=== PATIENT | female | born 1940 | race Caucasian/White ===

== ENCOUNTER 2016-11-17 12:09 | Emergency (ER) | payer OTHER ==
[~2016-11-17] VITALS: Ht 170.2 cm; Wt 84.0 kg
[~2016-11-17 12:09] MED LIST: ALBUAER19 INH; CLOP1TAB15 PO; DONE5TAB9 PO; ESCI1TAB6 PO; GABA1CAP PO; HMLI7525 SC; LORA-741 PO; LPT10 PO; LTRCR15 EXT; METF1000 PO; NRN/300 PO; NRV5 PO; PANT1TAB48 PO; SUCR1TAB29 PO; TRAM-10 PO
[2016-11-17 12:19] VITALS: TEMP 36.4; Ht 170.2 cm; Wt 84.0 kg
[2016-11-17] MEDS ORDERED: SODIUM CHLORIDE 0.9% 1000ML 500 ML IV STA (12:28)
[2016-11-17] MEDS ORDERED: ACETAMINOPHEN 500 MG TAB PO STA (12:28)
[2016-11-17 12:38] VITALS: O2SAT 98
--- NOTE | 2016-11-17 12:46 | DIAGNOSTIC IMAGING REPORT ---
CHEST ONE VIEW PORTABLE CLINICAL HISTORY: EVALUATE ALTERED MENTAL STATUS/WEAKNESS dyspnea COMPARISON STUDY: 03/30/2016 FINDINGS: The bones soft tissues and hemidiaphragms are normal. The cardiomediastinal silhouette is normal. The lungs are clear. The pulmonary vasculature is normal. IMPRESSION: Negative chest. Electronically signed by: Zoran Francois M.D. 11/17/2016 12:45 PM Dictated Date/Time: 11/17/2016 12:45 PM
[2016-11-17 12:58] LABS: BASO ABS # 0.06 K/uL (0-0.2); COMPLETE YES; EOS % 9.6 %; HEMATOCRIT 35.3 % (37-47); IG% 0.2 %; LYMPH % 37.3 %; LYMPH ABS # 2.33 K/uL (1.2-3.4); MEAN CELL VOLUME 77.4 fL (80-100); MEAN CORPUSCULAR HEMOGLOBIN 26.3 pg (25-34); MEAN PLATELET VOLUME 9.4 fL (7.4-10.4); MONO % 5.1 %; NEUT % 46.8 %; PLATELET COUNT 169 K/uL (130-400); RED BLOOD COUNT 4.56 M/uL (4.2-5.4); WHITE BLOOD COUNT 6.24 K/uL (4.8-10.8)
[2016-11-17 13:04] LABS: URINE APPEARANCE CLEAR (CLEAR); URINE BILIRUBIN NEG (NEG); URINE COLOR YELLOW; URINE NITRITE NEG (NEG); URINE SPECIFIC GRAVITY 1.005 (1.000-1.030); UROBILINOGEN NEG (NEG); ZZUR CULT IF INDIC CLEAN CATCH NO
[2016-11-17 13:19] LABS: ALT/SGPT 26 U/L (12-78); AST/SGOT 14 U/L (15-37); BLOOD UREA NITROGEN 14 mg/dl (7-18); BUN/CREATININE RATIO 15.2 (10-20); CALCIUM 8.3 mg/dl (8.5-10.1); CARBON DIOXIDE 28 mmol/L (21-32); CHLORIDE 108 mmol/L (98-107); CREATININE 0.92 mg/dl (0.60-1.20); GLUCOSE 135 mg/dl (70-99); POTASSIUM 3.7 mmol/L (3.5-5.1); SODIUM 142 mmol/L (136-145)
[2016-11-17 13:24] LABS: ALKALINE PHOSPHATASE 86 U/L (45-117)
--- NOTE | 2016-11-17 13:25 | EMERGENCY ROOM VISIT NOTE ---
History Report prepared by Lenora: Nisha Dotson Under the Supervision of: Dr. Nilay Tyson M.D. First contact with patient: 12:19 Chief Complaint: ARM PAIN Stated Complaint: R ARM PAIN History of Present Illness The patient is a 76 year old female who presents to the Emergency Room via EMS with complaints of worsening right arm pain starting a few days ago. She reports pain radiation to the right side of the neck. She has worsening pain with movement of the arm and neck. She denies any recent falls or injuries. She woke up this morning with nausea. She passed out while sitting down this morning while having her normal check up by the home health nurse. She denies falling down or hitting her head. Her blood sugar was 143 today before she was sent to the Emergency Room. She has a history of diabetes. She was started on Keflex last night for a urinary tract infection. As per family member, the patient has a chronic cough. She denies chest pain, shortness of breath, or any other complaints. Source of History: patient, family Onset: a few days ago Position: arm (right) Timing: worsening Modifying Factors (Worsening): movement (of arm and neck) Associated Symptoms: + cough (chronic), + nausea, No SOB, No chest pain Review of Systems See HPI for pertinent positives & negatives. A total of 10 systems reviewed and were otherwise negative. Past Medical & Surgical Medical Problems: (1) Dementia (2) Depression (3) DM type 2 (diabetes mellitus, type 2) (4) Dyslipidemia (5) GERD (gastroesophageal reflux disease) (6) HTN (hypertension) (7) Peptic ulcer (8) Renal calculi (9) Stroke Surgical Problems: (1) History of hysterectomy (2) S/p bilateral carpal tunnel release (3) S/P cholecystectomy Family History Cancer Diabetes mellitus FH: heart disease Hypertension Kidney stones Social History Smoking Status: Former Smoker Drug Use: none Marital Status: Housing Status: lives alone Occupation Status: retired Current/Historical Medications Scheduled Albuterol Inhaler (Ventolin Inhaler), 2 PUFFS INH QID Atorvastatin (Atorvastatin Calcium), 10 MG PO QPM Cephalexin Monohydrate (Keflex), 250 MG PO QAM Clopidogrel (Plavix), 75 MG PO NOON Clotrimazole (Lotrimin 1% Crm), 1 APPLN EXT BID Donepezil HCl (Aricept), 5 MG PO HS Escitalopram Oxalate (Lexapro), 5 MG PO HS Gabapentin (Neurontin), 300 MG PO TID Insulin Lispro 75/25 (Humalog Mix 75/25), 54 UNITS SC BID Lorazepam (Ativan), 0.5 MG PO TID Losartan Potassium (Cozaar), 50 MG PO DAILY Pantoprazole (Protonix), 40 MG PO QPM Allergies Coded Allergies: Metaxalone (Unverified Allergy, Unknown, unknown, 11/17/16) Penicillins (Verified Allergy, Unknown, 11/17/16) Quinolones (Verified Allergy, Unknown, UNKNOWN, 11/17/16) Sulfa Antibiotics (Verified Allergy, Unknown, UNKNOWN, 11/17/16) Physical Exam Vital Signs Date Time Temp Pulse Resp B/P Pulse Ox O2 Delivery O2 Flow Rate FiO2 11/17/16 14:27 76 22 155/83 94 11/17/16 13:15 72 11/17/16 13:10 72 131/90 84 160/109 82 176/82 11/17/16 12:38 98 Room Air 11/17/16 12:19 36.4 74 16 138/77 97 Room Air Physical Exam GENERAL: Patient is in no acute distress. HEENT: No acute trauma, normocephalic atraumatic, mucous membranes moist, no nasal congestion, no scleral icterus. NECK: Pain to palpation of right trapezius and right posterior neck muscles, pain worsens with neck movement, no stridor, trachea is midline, no posterior C- spine bony tenderness. LUNGS: Clear to auscultation bilaterally, no wheeze, no rhonchi, breath sounds equal. HEART: Without murmurs gallops or rubs, regular rate and rhythm. ABDOMEN: Soft, nontender, bowel sounds positive, no hernias, no peritonitis. EXTREMITIES: No cyanosis or edema, full range of motion of all the joints without pain or difficulty, no signs for acute trauma. NEUROLOGIC: Oriented x 3, no acute motor or sensory deficits, no focal weakness. SKIN: No rash, no jaundice, no diaphoresis. Medical Decision & Procedures ER Provider Diagnostic Interpretation: Orthostatic vital signs are negative. X ray results and stated below per my interpretation and radiologist interpretation. CT results and stated below per my review and radiologist interpretation: CERVICAL SPINE CT CT DOSE: 386.78 mGy.cm HISTORY: right neck and arm pain TECHNIQUE: Multiaxial CT images of the cervical spine were performed and reformatted in the sagittal and coronal plane without the use of contrast. COMPARISON: Neck CTA 03/21/2015. FINDINGS: Mild reversal of the normal lordotic curvature. Severe facet degenerative changes within the left side of the C2-C4 facets. Nonunited small posterior fragment at the left C2 facet is likely due to an old fracture or long-standing degenerative change. This does not appear to represent an acute fracture. No acute fractures identified within the cervical spine. The C1-C2 interval is intact. There is 1.5 mm of anterolisthesis of C3 on C4. Severe disc space narrowing with endplate osteophytes at C4-C5, C5-C6. Moderate disc space narrowing and endplate osteophytes at C6-C7. Minimal dextroscoliosis which may be positional. Moderate left and severe right neural foraminal narrowing at C4-C7. Broad-based posterior disc osteophyte complexes at C4-C5, C5-C6, and C6-C7 resulting in mild to moderate central canal narrowing. IMPRESSION: 1. No acute fracture within the cervical spine. 2. Degenerative changes most pronounced at the C4-C5, C5-C6, and C6-C7 levels as described above with left greater than right neural foraminal narrowing. 3. There is 1.5 mm of anterolisthesis of C3 on C4 likely due to long-standing degenerative change. Electronically signed by: Gio Norton M.D. 11/17/2016 1:22 PM Dictated Date/Time: 11/17/2016 1:12 PM CHEST ONE VIEW PORTABLE CLINICAL HISTORY: EVALUATE ALTERED MENTAL STATUS/WEAKNESS dyspnea COMPARISON STUDY: 03/30/2016 FINDINGS: The bones soft tissues and hemidiaphragms are normal. The cardiomediastinal silhouette is normal. The lungs are clear. The pulmonary vasculature is normal. IMPRESSION: Negative chest. Electronically signed by: Zoran Francois M.D. 11/17/2016 12:45 PM Dictated Date/Time: 11/17/2016 12:45 PM Laboratory Results 11/17/16 11:45 Red Blood Count 4.56, Mean Corpuscular Volume 77.4, Mean Corpuscular Hemoglobin 26.3, Mean Corpuscular Hemoglobin Concent 34.0, Mean Platelet Volume 9.4, Neutrophils (%) (Auto) 46.8, Lymphocytes (%) (Auto) 37.3, Monocytes (%) (Auto) 5.1, Eosinophils (%) (Auto) 9.6, Basophils (%) (Auto) 1.0, Neutrophils # (Auto) 2.92, Lymphocytes # (Auto) 2.33, Monocytes # (Auto) 0.32, Eosinophils # (Auto) 0.60, Basophils # (Auto) 0.06 11/17/16 11:45 Test 11/17/16 11:45 11/17/16 12:53 White Blood Count 6.24 K/uL (4.8-10.8) Red Blood Count 4.56 M/uL (4.2-5.4) Hemoglobin 12.0 g/dL (12.0-16.0) Hematocrit 35.3 % (37-47) Mean Corpuscular Volume 77.4 fL (80-100) Mean Corpuscular Hemoglobin 26.3 pg (25-34) Mean Corpuscular Hemoglobin Concent 34.0 g/dl (32-36) Platelet Count 169 K/uL (130-400) Mean Platelet Volume 9.4 fL (7.4-10.4) Neutrophils (%) (Auto) 46.8 % Lymphocytes (%) (Auto) 37.3 % Monocytes (%) (Auto) 5.1 % Eosinophils (%) (Auto) 9.6 % Basophils (%) (Auto) 1.0 % Neutrophils # (Auto) 2.92 K/uL (1.4-6.5) Lymphocytes # (Auto) 2.33 K/uL (1.2-3.4) Monocytes # (Auto) 0.32 K/uL (0.11-0.59) Eosinophils # (Auto) 0.60 K/uL (0-0.5) Basophils # (Auto) 0.06 K/uL (0-0.2) RDW Standard Deviation 42.1 fL (36.4-46.3) RDW Coefficient of Variation 14.9 % (11.5-14.5) Immature Granulocyte % (Auto) 0.2 % Immature Granulocyte # (Auto) 0.01 K/uL (0.00-0.02) Anion Gap 6.0 mmol/L (3-11) Est Creatinine Clear Calc Drug Dose 58.9 ml/min Estimated GFR () 70.6 Estimated GFR (Non- 60.9 BUN/Creatinine Ratio 15.2 (10-20) Calcium Level 8.3 mg/dl (8.5-10.1) Total Bilirubin 1.2 mg/dl (0.2-1) Aspartate Amino Transf (AST/SGOT) 14 U/L (15-37) Alanine Aminotransferase (ALT/SGPT) 26 U/L (12-78) Alkaline Phosphatase 86 U/L (45-117) Troponin I < 0.015 ng/ml (0-0.045) Total Protein 7.3 gm/dl (6.4-8.2) Albumin 3.7 gm/dl (3.4-5.0) Globulin 3.6 gm/dl (2.5-4.0) Albumin/Globulin Ratio 1.0 (0.9-2) Urine Color YELLOW Urine Appearance CLEAR (CLEAR) Urine pH 5.0 (4.5-7.5) Urine Specific [place] 1.005 (1.000-1.030) Urine Protein NEG (NEG) Urine Glucose (UA) NEG (NEG) Urine Ketones NEG (NEG) Urine Occult Blood NEG (NEG) Urine Nitrite NEG (NEG) Urine Bilirubin NEG (NEG) Urine Urobilinogen NEG (NEG) Urine Leukocyte Esterase NEG (NEG) Laboratory results reviewed by me. Medications Administered Medications (Trade) Dose Ordered Sig/Phil Route Start Time Stop Time Status Last Admin Dose Admin Sodium Chloride (Nss 1000ml) 500 ml @ 999 mls/hr Q31M STAT IV 11/17/16 12:28 11/17/16 12:58 DC 11/17/16 12:28 999 MLS/HR Acetaminophen (Tylenol Tab) 1,000 mg NOW STAT PO 11/17/16 12:28 11/17/16 12:33 DC 11/17/16 12:28 1,000 MG ECG Indication: other (arm pain) Rate (beats per minute): 70 Rhythm: normal sinus Findings: no acute ischemic change, no ectopy ED Course 1219: The patient was evaluated in room B02. A complete history and physical exam was performed. 1228: Tylenol Tab 1000 mg PO, Sodium Chloride 500 ml @ 999 mls/hr IV 1345: Reevaluated the patient who currently denies any complaints. Discussed results and discharge instructions: She verbalized understanding and agreement. The patient is ready for discharge. Medical Decision Differential diagnosis includes but is not limited to cervical fracture, cervical disc disease, nerve impingement, muscle spasm, dehydration, electrolyte imbalance, infection, dysrhythmia. There is no leukocytosis or concerning anemia. No significant electrolyte abnormality, kidney failure or hepatitis. Urinalysis does not show evidence for infection. Orthostatic vital signs were negative. Chest x-ray shows no pneumonia or CHF. EKG shows a sinus rhythm, no acute ischemia. Cardiac enzyme testing times one is not consistent with acute cardiac injury. Cervical spine CT shows arthritis, no acute fracture. The patient received IV saline, she was given oral Tylenol for her right arm pain. The patient had a near syncopal or brief syncopal event today when the home health nurse was performing her assessment. There was no chest pain. The patient has no complaints at the present except for some right arm pain which apparently, has been ongoing for several days. She has pain with palpation in the right neck and right trapezius muscle and with the results of her cervical spine CT, I suspect her pain is musculoskeletal-she likely has some nerve impingement. The patient was reassured, she feels well, she has been up to the bathroom and has been able to ambulate on her own. There has been no recurrent near syncopal or syncopal events. She is being discharged to follow with her doctors office. She will stop the Keflex as I'm not sure she needs it, the urine seems clear. Her son believes the Keflex made her sick/nauseated and then caused her to pass out. Impression Primary Impression: Near syncope Additional Impression: Arm pain, right Scribe Attestation The scribe's documentation has been prepared under my direction and personally reviewed by me in its entirety. I confirm that the note above accurately reflects all work, treatment, procedures, and medical decision making performed by me. Departure Information Dispostion Home / Self-Care Referrals Renetta Grajeda (PCP) Forms HOME CARE DOCUMENTATION FORM, IMPORTANT VISIT INFORMATION Patient Instructions My [facility] Additional Instructions tylenol for pain massage and heat to the neck may help stop the Keflex antibiotic for now follow with your matti md this week return if worsening lab testing was all ok today CT scan of the neck showed arthritis Problem Qualifiers
[2016-11-17 13:32] LABS: MANUAL MICROSCOPIC REQUIRED? NO; REVIEW REQ? NO
[2016-11-17] MEDS ORDERED: LOSA50TA6 PO (13:45)
[2016-11-17] MEDS ORDERED: KFL/250 PO (13:45)
[2016-11-17 14:27] VITALS: BP 155/83; PULSE 76; O2SAT 94
== END 2016-11-17 14:32 | disposition home or self-care (01) ==
LOC: EDBD 12:09 → C.EDB 12:10
DX: R55 Syncope and collapse (principal); M79.601 Pain in right arm; E11.9 Type 2 diabetes mellitus without complications; K21.9 Gastro-esophageal reflux disease without esophagitis; F03.90 Unspecified dementia, unspecified severity, without behavioral disturbance, psychotic disturbance, mood disturbance, and anxiety; E78.5 Hyperlipidemia, unspecified; I10 Essential (primary) hypertension; Z87.442 Personal history of urinary calculi; Z86.73 Personal history of transient ischemic attack (TIA), and cerebral infarction without residual deficits; Z80.9 Family history of malignant neoplasm, unspecified; Z83.3 Family history of diabetes mellitus; Z82.49 Family history of ischemic heart disease and other diseases of the circulatory system; Z84.1 Family history of disorders of kidney and ureter; Z87.891 Personal history of nicotine dependence; Z79.02 Long term (current) use of antithrombotics/antiplatelets; Z79.4 Long term (current) use of insulin; Z79.899 Other long term (current) drug therapy

== ENCOUNTER 2016-12-27 10:24 | Emergency (ER) | payer OTHER ==
[~2016-12-27] VITALS: Ht 158.8 cm; Wt 84.0 kg
[~2016-12-27 10:24] MED LIST changes: -GABA1CAP PO; +KFL/250 PO; +LOSA50TA6 PO; -METF1000 PO; -NRV5 PO; -SUCR1TAB29 PO; -TRAM-10 PO
[2016-12-27] MEDS ORDERED: SODIUM CHLORIDE 0.9% 1000ML 1,000 ML IV STA (10:48)
[2016-12-27] MEDS ORDERED: CARB25TA12 PO (10:51)
[2016-12-27] MEDS ORDERED: TRAM-10 PO (10:51)
[2016-12-27] MEDS ORDERED: ESCI10TA17 PO (10:51)
[2016-12-27] MEDS ORDERED: DONE1TAB11 PO (10:51)
[2016-12-27] MEDS ORDERED: CEFD300C2 PO (10:51)
[2016-12-27 10:53] VITALS: O2SAT 94; Ht 158.8 cm; Wt 84.0 kg
[2016-12-27 11:14] LABS: URINE APPEARANCE CLEAR (CLEAR); URINE BILIRUBIN NEG (NEG); URINE COLOR YELLOW; URINE EPITHELIAL CELL AUTO 20-30 /lpf (0-5); URINE NITRITE NEG (NEG); URINE PH 5.5 (4.5-7.5); URINE SPECIFIC GRAVITY 1.011 (1.000-1.030); UROBILINOGEN NEG (NEG)
[2016-12-27 11:15] LABS: MANUAL MICROSCOPIC REQUIRED? NO; REVIEW REQ? NO
[2016-12-27 11:29] LABS: BASO % 0.2 %; BASO ABS # 0.01 K/uL (0-0.2); COMPLETE YES; EOS % 5.1 %; HEMATOCRIT 38.9 % (37-47); IG% 0.2 %; LYMPH % 27.1 %; LYMPH ABS # 1.55 K/uL (1.2-3.4); MEAN CELL VOLUME 79.4 fL (80-100); MEAN CORPUSCULAR HEMOGLOBIN 26.5 pg (25-34); MEAN CORPUSCULAR HGB CONC 33.4 g/dl (32-36); MEAN PLATELET VOLUME 9.9 fL (7.4-10.4); NEUT % 60.4 %; PLATELET COUNT 177 K/uL (130-400); WHITE BLOOD COUNT 5.73 K/uL (4.8-10.8)
--- NOTE | 2016-12-27 11:33 | DIAGNOSTIC IMAGING REPORT ---
CHEST ONE VIEW PORTABLE CLINICAL HISTORY: Weakness COMPARISON STUDY: 11/17/2016 FINDINGS: The cardiac and mediastinal contours are normal. There is no evidence of focal pulmonary consolidation. There is no evidence of failure. No pleural effusions are visualized.[ Differential attenuation hemithoraces is felt to be secondary to technical factors. There is mild respiratory motion artifact. IMPRESSION: No active disease in the chest. Electronically signed by: Etienne Davis M.D. 12/27/2016 11:32 AM Dictated Date/Time: 12/27/2016 11:32 AM
--- NOTE | 2016-12-27 11:35 | DIAGNOSTIC IMAGING REPORT ---
CT HEAD WITHOUT CONTRAST (CT) CLINICAL HISTORY: Confusion, weakness, history of stroke. COMPARISON STUDY: 03/30/2016 TECHNIQUE: Axial CT of the brain is performed from the vertex to the skull base. IV contrast was not administered for this examination. CT DOSE: 537.48 mGy.cm FINDINGS: No intra or extra-axial mass lesions are visualized. There is no CT evidence of acute cortical infarction. There is no evidence of midline shift. There is no acute hemorrhage. No calvarial fractures are visualized. There are moderate white matter hypodensities likely on a small vessel basis. There is no evidence of pathologic ventricular dilatation. There is no evidence of acute sinusitis IMPRESSION: No acute intracranial findings Electronically signed by: Etienne Davis M.D. 12/27/2016 11:33 AM Dictated Date/Time: 12/27/2016 11:32 AM
[2016-12-27 11:37] LABS: PARTIAL THROMBOPLASTIN RATIO 1.1; PROTHROMBIN TIME (PATIENT) 10.9 SECONDS (9.0-12.0)
[2016-12-27 11:56] LABS: ALKALINE PHOSPHATASE 101 U/L (45-117); ALT/SGPT 29 U/L (12-78); AST/SGOT 20 U/L (15-37); BLOOD UREA NITROGEN 20 mg/dl (7-18); CALCIUM 8.6 mg/dl (8.5-10.1); CARBON DIOXIDE 28 mmol/L (21-32); CHLORIDE 104 mmol/L (98-107); CKMB/CK RATIO 1.1 (0-3.0); GLUCOSE 318 mg/dl (70-99); MAGNESIUM 1.9 mg/dl (1.8-2.4); POTASSIUM 4.7 mmol/L (3.5-5.1); SODIUM 139 mmol/L (136-145)
[2016-12-27 12:07] LABS: BETA-HYDROXYBUTYRATE 1.54 mg/dL (0.2-2.81)
[2016-12-27] MEDS ORDERED: NovoLIN-R INSULIN PER UNIT CHARGE IV STA (13:49)
[2016-12-27] MEDS ORDERED: ACETAMINOPHEN 500 MG TAB PO STA (13:49)
[2016-12-27 15:08] VITALS: BP 117/83; PULSE 79; TEMP 36.7; O2SAT 95
--- NOTE | 2016-12-27 17:22 | EMERGENCY ROOM VISIT NOTE ---
History Report prepared by Lenora: Bryanna Serna Under the Supervision of: Dr. Christopher Bro M.D. 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 Family states that she became weak while walking this morning around 850am. She did not fall to the ground, but family was able to slowly assist her to the ground. She did not hit her head or injure anything today. Her daughter states that after she fell she was incoherent for some time. She did not know who her family was. She was calling out for her mother who has been for many years. Daughter states that it was about 30-45 minutes before her mental status returned to normal. The patient has appeared to be more tired than usual today and was shaking while she was lying on the ground. The patient denies any pain or injury secondary to today's episode. She does note a chronic cough, as well as chronic back pain and neck pain. The patient has a history of a previous stroke and dementia. The patient's daughter notes concerns that this may be related to her dementia as she has had this type of episode before. She was brought to the ED by ambulance today. Daughter notes that she is currently taking Omnicef and has been taking it since 12/20/16 for "inflammation in her glands." She has not had any other recent changes to her medications. Pt denies LOC, headache, fevers, chills, diaphoresis, visual changes, chest pain, breathing difficulties , nausea, vomiting, abdominal pain, melena, hematochezia, urinary symptoms, numbness, lymphadenopathy, rash, or other complaints. Source of History: patient, family Onset: almost 2 hours DIRT SHOVELER Position: other (global) Quality: other (fall) Timing: other (episode) Modifying Factors (Relieving): other (time) Associated Symptoms: + fatigue, + weakness Review of Systems See HPI for pertinent positives and negatives. A total of ten systems were reviewed and were otherwise negative. Past Medical & Surgical Medical Problems: (1) Dementia (2) Depression (3) DM type 2 (diabetes mellitus, type 2) (4) Dyslipidemia (5) GERD (gastroesophageal reflux disease) (6) HTN (hypertension) (7) Peptic ulcer (8) Renal calculi (9) Stroke Surgical Problems: (1) History of hysterectomy (2) S/p bilateral carpal tunnel release (3) S/P cholecystectomy Family History Cancer Diabetes mellitus FH: heart disease Hypertension Kidney stones Social History Smoking Status: Former Smoker Drug Use: none Marital Status: Housing Status: lives alone Occupation Status: retired Current/Historical Medications Scheduled Atorvastatin (Atorvastatin Calcium), 10 MG PO QPM Carbidopa/Levodopa (Sinemet 25MG/100MG), 0.5 TAB PO TID Cefdinir (Omnicef), 300 MG PO BID Clopidogrel (Plavix), 75 MG PO NOON Donepezil Hydrochloride (Donepezil Hcl), 10 MG PO DAILY Escitalopram (Lexapro), 10 MG PO DAILY Gabapentin (Neurontin), 300 MG PO TID Insulin Lispro 75/25 (Humalog Mix 75/25), 54 UNITS SC BID Lorazepam (Ativan), 0.5 MG PO TID Losartan Potassium (Cozaar), 50 MG PO DAILY Pantoprazole (Protonix), 40 MG PO QPM Scheduled PRN Tramadol (Ultram), 50 MG PO Q8H PRN for Pain Allergies Coded Allergies: Metaxalone (Unverified Allergy, Unknown, unknown, 11/17/16) Penicillins (Verified Allergy, Unknown, 11/17/16) Quinolones (Verified Allergy, Unknown, UNKNOWN, 11/17/16) Sulfa Antibiotics (Verified Allergy, Unknown, UNKNOWN, 11/17/16) Physical Exam Vital Signs Date Time Temp Pulse Resp B/P Pulse Ox O2 Delivery O2 Flow Rate FiO2 12/27/16 15:08 36.7 79 18 117/83 95 12/27/16 14:46 79 18 117/83 95 Room Air 12/27/16 13:42 86 12/27/16 12:04 83 15 94 12/27/16 11:59 83 21 92 12/27/16 11:54 78 14 94 12/27/16 11:52 128/93 12/27/16 11:04 93 24 94 12/27/16 10:59 86 16 95 12/27/16 10:54 82 18 95 12/27/16 10:53 94 Room Air 12/27/16 10:49 82 23 91 12/27/16 10:44 78 14 95 12/27/16 10:37 84 12/27/16 10:30 36.7 80 20 164/80 95 Room Air Physical Exam GENERAL: Awake, alert, well-appearing, in no distress HENT: Normocephalic, atraumatic. Oropharynx unremarkable. EYES: Normal conjunctiva. Sclera non-icteric. PERRL, EOMI. NECK: Supple. No nuchal rigidity. FROM. No JVD. RESPIRATORY: Clear to auscultation. Moderate cough present. CARDIAC: Regular rate, normal rhythm. Extremities warm and well perfused. Pulses equal. ABDOMEN: Soft, non-distended. Minimal lower abdominal discomfort. No rebound or guarding. No masses. RECTAL: Deferred. MUSCULOSKELETAL: Chest examination reveals no tenderness. The back is symmetrical on inspection without obvious abnormality. There is no CVA tenderness to palpation. No joint edema. LOWER EXTREMITIES: Calves are equal size bilaterally and non-tender. No edema. No discoloration. NEURO: Mildly confused sensorium. Difficulty following commands for assessing right leg drift, which the daughter states is chronic for her. SKIN: No rash or jaundice noted. Medical Decision & Procedures ER Provider Diagnostic Interpretation: Radiology results as stated below per my review and radiologist interpretation: CT HEAD WITHOUT CONTRAST (CT) CLINICAL HISTORY: Confusion, weakness, history of stroke. COMPARISON STUDY: 03/30/2016 TECHNIQUE: Axial CT of the brain is performed from the vertex to the skull base. IV contrast was not administered for this examination. CT DOSE: 537.48 mGy.cm FINDINGS: No intra or extra-axial mass lesions are visualized. There is no CT evidence of acute cortical infarction. There is no evidence of midline shift. There is no acute hemorrhage. No calvarial fractures are visualized. There are moderate white matter hypodensities likely on a small vessel basis. There is no evidence of pathologic ventricular dilatation. There is no evidence of acute sinusitis IMPRESSION: No acute intracranial findings Electronically signed by: Etienne Davis M.D. 12/27/2016 11:33 AM Dictated Date/Time: 12/27/2016 11:32 AM CHEST ONE VIEW PORTABLE CLINICAL HISTORY: Weakness COMPARISON STUDY: 11/17/2016 FINDINGS: The cardiac and mediastinal contours are normal. There is no evidence of focal pulmonary consolidation. There is no evidence of failure. No pleural effusions are visualized.[ Differential attenuation hemithoraces is felt to be secondary to technical factors. There is mild respiratory motion artifact. IMPRESSION: No active disease in the chest. Electronically signed by: Etienne Davis M.D. 12/27/2016 11:32 AM Dictated Date/Time: 12/27/2016 11:32 AM Laboratory Results 12/27/16 11:10 Red Blood Count 4.90, Mean Corpuscular Volume 79.4, Mean Corpuscular Hemoglobin 26.5, Mean Corpuscular Hemoglobin Concent 33.4, Mean Platelet Volume 9.9, Neutrophils (%) (Auto) 60.4, Lymphocytes (%) (Auto) 27.1, Monocytes (%) (Auto) 7.0, Eosinophils (%) (Auto) 5.1, Basophils (%) (Auto) 0.2, Neutrophils # (Auto) 3.47, Lymphocytes # (Auto) 1.55, Monocytes # (Auto) 0.40, Eosinophils # (Auto) 0.29, Basophils # (Auto) 0.01 12/27/16 11:10 Test 12/27/16 10:35 12/27/16 11:10 Urine Color YELLOW Urine Appearance CLEAR (CLEAR) Urine pH 5.5 (4.5-7.5) Urine Specific [place] 1.011 (1.000-1.030) Urine Protein TRACE (NEG) Urine Glucose (UA) 2+ (NEG) Urine Ketones NEG (NEG) Urine Occult Blood NEG (NEG) Urine Nitrite NEG (NEG) Urine Bilirubin NEG (NEG) Urine Urobilinogen NEG (NEG) Urine Leukocyte Esterase NEG (NEG) Urine WBC (Auto) 1-5 /hpf (0-5) Urine RBC (Auto) 0-4 /hpf (0-4) Urine Hyaline Casts (Auto) 0 /lpf (0-5) Urine Epithelial Cells (Auto) 20-30 /lpf (0-5) Urine Bacteria (Auto) NEG (NEG) White Blood Count 5.73 K/uL (4.8-10.8) Red Blood Count 4.90 M/uL (4.2-5.4) Hemoglobin 13.0 g/dL (12.0-16.0) Hematocrit 38.9 % (37-47) Mean Corpuscular Volume 79.4 fL (80-100) Mean Corpuscular Hemoglobin 26.5 pg (25-34) Mean Corpuscular Hemoglobin Concent 33.4 g/dl (32-36) Platelet Count 177 K/uL (130-400) Mean Platelet Volume 9.9 fL (7.4-10.4) Neutrophils (%) (Auto) 60.4 % Lymphocytes (%) (Auto) 27.1 % Monocytes (%) (Auto) 7.0 % Eosinophils (%) (Auto) 5.1 % Basophils (%) (Auto) 0.2 % Neutrophils # (Auto) 3.47 K/uL (1.4-6.5) Lymphocytes # (Auto) 1.55 K/uL (1.2-3.4) Monocytes # (Auto) 0.40 K/uL (0.11-0.59) Eosinophils # (Auto) 0.29 K/uL (0-0.5) Basophils # (Auto) 0.01 K/uL (0-0.2) RDW Standard Deviation 43.6 fL (36.4-46.3) RDW Coefficient of Variation 15.2 % (11.5-14.5) Immature Granulocyte % (Auto) 0.2 % Immature Granulocyte # (Auto) 0.01 K/uL (0.00-0.02) Prothrombin Time 10.9 SECONDS (9.0-12.0) Prothromb Time International Ratio 1.0 (0.9-1.1) Activated Partial Thromboplast Time 28.7 SECONDS (21.0-31.0) Partial Thromboplastin Ratio 1.1 Anion Gap 7.0 mmol/L (3-11) Est Creatinine Clear Calc Drug Dose 44.9 ml/min Estimated GFR () 56.9 Estimated GFR (Non- 49.1 BUN/Creatinine Ratio 18.0 (10-20) Calcium Level 8.6 mg/dl (8.5-10.1) Magnesium Level 1.9 mg/dl (1.8-2.4) Total Bilirubin 1.4 mg/dl (0.2-1) Direct Bilirubin 0.3 mg/dl (0-0.2) Aspartate Amino Transf (AST/SGOT) 20 U/L (15-37) Alanine Aminotransferase (ALT/SGPT) 29 U/L (12-78) Alkaline Phosphatase 101 U/L (45-117) Total Creatine Kinase 113 U/L (26-192) Creatine Kinase MB 1.2 ng/ml (0.5-3.6) Creatine Kinase MB Ratio 1.1 (0-3.0) Troponin I < 0.015 ng/ml (0-0.045) Total Protein 7.5 gm/dl (6.4-8.2) Albumin 3.9 gm/dl (3.4-5.0) Lipase 239 U/L (73-393) Beta-Hydroxybutyric Acid 1.54 mg/dL (0.2-2.81) Thyroid Stimulating Hormone (TSH) 2.880 uIu/ml (0.300-4.500) Chemistry Specimen Hemolysis Laboratory results reviewed by me. Medications Administered Medications (Trade) Dose Ordered Sig/Phil Route Start Time Stop Time Status Last Admin Dose Admin Sodium Chloride (Nss 1000ml) 1,000 ml @ 125 mls/hr Q8H STAT IV 12/27/16 10:48 12/27/16 15:17 DC 12/27/16 10:48 125 MLS/HR Insulin Human Regular (novoLIN-R U-100 PER UNIT) 6 units NOW STAT IV 12/27/16 13:49 12/27/16 13:51 DC 12/27/16 13:49 6 UNITS Acetaminophen (Tylenol Tab) 1,000 mg NOW STAT PO 12/27/16 13:49 12/27/16 13:51 DC 12/27/16 13:49 1,000 MG ECG Indication: weakness Rate (beats per minute): 80 Rhythm: normal sinus Findings: no acute ischemic change, no ectopy ED Course 1041: The patient was evaluated in room C9. A complete history and physical exam was performed. 1048: NSS 1000 ml @ 125 mls/hr IV 1348: I reevaluated the patient and updated her family. 1349: Tylenol 1000 mg PO, Insulin Human Regular 6 units IV 1436: I spoke with case management at this time. They noted that services are in place and the patient will will follow-up with her PCP. 1441: I reassessed the patient at this time. She is feeling better and resting comfortably. I discussed the results and treatment plan with the patient and her family. I answered all pertaining questions that they had. They expressed understanding and verbalized agreement. The patient will be discharged home. Medical Decision Triage Nursing notes reviewed. The patient's presentation and history were concerning for weakness and transient altered mental status. Etiologies such as metabolic, infection, hypo/hyperglycemia, electrolyte abnormalities, cardiac sources, intracerebral event, toxicologic, neurologic, dementia, as well as others were entertained. The patient was evaluated. She was hydrated. Clinically she was doing relatively well. She has a nonfocal examination her CT was unremarkable. CBC, chemistry panel, urinalysis, LFTs, cardiac markers, and TSH were negative. The patient did have a mild elevation of her glucose. She noted not taking her insulin yet today. She was given 6 units of IV insulin. She was also given Tylenol as she said she developed a mild headache several hours after being in the emergency department. The patient was reassessed him multiple times and was doing well. She was able to ambulate to the bathroom. She had no difficulty with that. She had recently been started on an antibiotic and seems to be doing well with this. I see no significant ENT infection present at this point time. She has no urinary tract infection. The family states this has happened before. They do note that she is living with her elderly . I did have case management meet with the patient and family. She has services in place but she will need close outpatient follow-up. I did ask for her to continue her current diabetic regimen however she was provided with dietary recommendations and instructed to monitor her blood glucose at least 4 times a day and record this for her primary physician. Case management did set an appointment for the day after tomorrow with her primary office. If patient worsens in any way she'll be brought back to the emergency department for reevaluation. Family felt comfortable. I did encourage the patient to rest and take it easy. She is to refrain from any significant work or lifting. I gave my usual and customary discussion regarding this issue. By the evaluation outlined above other emergent etiologies such as those listed in the differential, as well as others, were deemed relatively unlikely. The patient and family were informed about the findings as listed above. All questions were answered and they were pleased with the treatment. Return instructions were outlined and the patient was discharged in stable condition. The patient was referred to her PCP for follow-up today after tomorrow for a recheck of the current condition. The chart was completed utilizing [employer] voice recognition software. Grammatical errors, random word insertions, pronoun errors, and incomplete sentences are an occasional consequence of this system due to software limitations, ambient noise, and hardware issues. Any formal questions or concerns about the content, text, or information contained within the body of this dictation should be directly addressed to the physician for clarification. Impression Primary Impression: Cough Additional Impression: Weakness Scribe Attestation The scribe's documentation has been prepared under my direction and personally reviewed by me in its entirety. I confirm that the note above accurately reflects all work, treatment, procedures, and medical decision making performed by me. Departure Information Dispostion Home / Self-Care Referrals [place] (PCP) Trey Anderson M.D. Forms HOME CARE DOCUMENTATION FORM, IMPORTANT VISIT INFORMATION Patient Instructions Diabetes Carbs Fats Protein, My [facility] Additional Instructions Continue current medications. Monitor blood sugar 4 times daily and record this. Have this information available for your primary doctor in follow-up. Rest and drink plenty of fluids. Eat a healthy diabetic diet. Return to the ER for worsening weakness, falls, confusion, chest pain, difficulty breathing, fevers, vomiting, worsening of your condition, or as needed. Problem Qualifiers
== END 2016-12-27 15:09 | disposition home or self-care (01) ==
LOC: EDBD 10:24 → C.EDC 10:26
DX: R05 Cough (principal); R53.1 Weakness; F03.90 Unspecified dementia, unspecified severity, without behavioral disturbance, psychotic disturbance, mood disturbance, and anxiety; K21.9 Gastro-esophageal reflux disease without esophagitis; E11.9 Type 2 diabetes mellitus without complications; I10 Essential (primary) hypertension; F32.9 Major depressive disorder, single episode, unspecified; E78.5 Hyperlipidemia, unspecified; Z87.11 Personal history of peptic ulcer disease; Z86.73 Personal history of transient ischemic attack (TIA), and cerebral infarction without residual deficits; Z87.442 Personal history of urinary calculi; Z87.891 Personal history of nicotine dependence; Z90.710 Acquired absence of both cervix and uterus; Z90.49 Acquired absence of other specified parts of digestive tract; Z98.890 Other specified postprocedural states; Z83.3 Family history of diabetes mellitus; Z82.49 Family history of ischemic heart disease and other diseases of the circulatory system; Z84.1 Family history of disorders of kidney and ureter; Z79.02 Long term (current) use of antithrombotics/antiplatelets; Z79.4 Long term (current) use of insulin; Z79.899 Other long term (current) drug therapy

== ENCOUNTER → 2017-10-14 | Day surgery (SDC) | payer OTHER ==
[2017-10-10 07:54] VITALS: Ht 160 cm; Wt 86.4 kg
[~2017-10-14] VITALS: Ht 160 cm; Wt 86.4 kg
[~2017-10-14] MED LIST changes: -ALBUAER19 INH; +CARB25TA12 PO; +DONE10TA12 PO; -DONE5TAB9 PO; +ESCI10TA17 PO; -ESCI1TAB6 PO; -KFL/250 PO; +LIDOCAINE HCL 2% 2 ML VIAL (20MG/ML) ONE; -LTRCR15 EXT; +PANT1TAB3 PO; -PANT1TAB48 PO; +PROPOFOL IV EMULSION 10 MG/ML 20 ML VIAL IV ONE; +SODIUM CHLORIDE 0.9% 500ML 500 ML IV ONE
--- NOTE | 2017-10-14 09:34 | Endo History and Physical ---
History & Physical Date of Service: Oct 14, 2017. Chief Complaint: Gastrointestinal hemorrhage Referring Physician: Trey Koenig History of Present Illness History of dark (black) stools. s/p Bilroth I. Past Medical History Diabetes, Asthma, Reflux, High Cholesterol, Hypertension, CVA/TIA Past Surgical History Hx Cardiac Surgery: No Hx Internal Defibrillator: No Hx Pacemaker: No Hx Abdominal Surgery: Yes (HYSTER, MARY(?)) Hx of Implantable Prosthesis: No Hx Post-Op Nausea and Vomiting: No Hx Cancer Surgery: No Hx Thoracic Surgery: No Hx Orthopedic: No Hx Urinary Tract Surgery: No Family History None Social History Smoking Status: Former Smoker Hx Substance Use: No Hx Alcohol Use: No Allergies Coded Allergies: Metaxalone (Unverified Allergy, Unknown, unknown, 10/10/17) Penicillins (Verified Allergy, Unknown, RASH/HIVES(?), 10/10/17) Quinolones (Verified Allergy, Unknown, UNKNOWN, 10/10/17) Sulfa Antibiotics (Verified Allergy, Unknown, UNKNOWN, 10/10/17) Current Medications Reported Home Medications Medications Dose Route/Sig Max Daily Dose Days Date Category Aricept (Donepezil Hydrochloride) 10 Mg Tab 10 Mg PO QAM 10/10/17 Reported Sinemet 25MG/100MG (Carbidopa/Levodopa) Tab 0.5 Tab PO TID 12/27/16 Reported Lexapro (Escitalopram Oxalate) 10 Mg Tab 10 Mg PO QAM 12/27/16 Reported Cozaar (Losartan Potassium) 50 Mg Tab 50 Mg PO QAM 11/17/16 Reported Ativan (Lorazepam) 0.5 Mg Tab 0.5 Mg PO TID PRN 03/30/16 Reported Humalog Mix 75/25 (Insulin Human Lispro) 100 Units/ Inj 54 Units SC BID 06/23/15 Reported Plavix (Clopidogrel Bisulfate) 75 Mg Tab 75 Mg PO QAM 06/23/15 Reported Protonix (Pantoprazole) 40 Mg Tab 40 Mg PO QPM 06/23/15 Reported Neurontin (Gabapentin) 300 Mg Cap 300 Mg PO TID 06/23/15 Reported Lipitor (Atorvastatin Calcium) 10 Mg Tab 10 Mg PO QPM 06/23/15 Reported Vital Signs Weight (Kilograms): 86.36 Height (Feet): 5 Height (Inches): 3 Date Time Temp Pulse Resp B/P (MAP) Pulse Ox O2 Delivery O2 Flow Rate FiO2 10/14/17 08:40 36.2 89 20 121/57 (78) 92 Room Air Physical Exam General Appearance: WD/WN, no apparent distress Respiratory/Chest: Auscultation: breath sounds normal, no wheezing Cardiovascular: Heart Auscultation: RRR, no murmurs Assessment and Plan EGD today.
--- NOTE | 2017-10-14 09:51 | Discharge Instructions ---
Endoscopy Patient Instructions Date / Procedure(s) Performed Oct 14, 2017. EGD Allergy Information Coded Allergies: Metaxalone (Unverified Allergy, Unknown, unknown, 10/10/17) Penicillins (Verified Allergy, Unknown, RASH/HIVES(?), 10/10/17) Quinolones (Verified Allergy, Unknown, UNKNOWN, 10/10/17) Sulfa Antibiotics (Verified Allergy, Unknown, UNKNOWN, 10/10/17) Discharge Date / Findings Oct 14, 2017. Gastritis Medication Instructions Restart Stopped Medication(s): Restart medications today. No aspirin, Advil, or Aleve. Provider Instructions Activity Restrictions - No exercising or heavy lifting for 24 hours. - Do not drink alcohol the day of the procedure. - Do not drive a car or operate machinery until the day after the procedure. - Do not make any important decisions or sign important papers in 24 hours after the procedure. Following Day: - Return to full activity which may include returning to work/school. Diet Start your diet with liquids and light foods (jello, soup, juice, toast). Then eat your usual diet if not nauseated. Treatment For Common After Affects For mild abdominal pain, bloating, or excessive gas: - Rest - Eat lightly - Lie on right side Follow-Up Information Follow-up with Trey Koenig as scheduled Anesthesia Information What You Should Know You have had a procedure that required some medicine to reduce anxiety and discomfort. This treatment is called moderate sedation. After receiving the treatment, you may be sleepy, but you will be able to breathe on your own. The effects of the treatment may last for several hours. Follow these instructions along with Activity/Diet recommendations noted above: * Do NOT do anything where dizziness or clumsiness would be dangerous. * Rest quietly at home today, then you can be up and about tomorrow. * Have a responsible person stay with you the rest of today. * You may have had an I.V. today. If so, you may take the dressing off later today. Recommendations Call your doctor if: * Trouble breathing * Continuous vomiting for more than 24 hours * Temperature above 101 degrees * Severe abdominal pain or bloating * Pain not relieved by pain medicine ordered * There is increased drainage or redness from any incision * A large amount of rectal bleeding greater than 2-3 tablespoons. (If you had a polyp/s removed or have hemorrhoids, a small amount of blood - from the rectum is to be expected.) * You have any unanswered questions or concerns. IN THE EVENT OF A SERIOUS EMERGENCY, GO TO THE NEAREST EMERGENCY ROOM Your discharge instructions were prepared by provider Jac Fuentes. Patient Instructions Signature Page Alia Venegas Patient (or Guardian) Signature/Date: I have read and understand the instructions given to me by my caregivers. Caregiver/RN/Doctor Signature/Date: The above-named patient and/or guardian has received patient instructions on this date. + Original Patient Signature Page (only) stays with chart. Please make copy for patient.
--- NOTE | 2017-10-14 09:57 | GI REPORT ---
Procedure Date: 10/14/2017 9:42 AM Procedure: Upper GI endoscopy Indications: Melena Medicines: Propofol per Anesthesia Complications: No immediate complications. Estimated blood loss: None. Estimated Blood Loss: Estimated blood loss: none. Procedure: Pre-Anesthesia Assessment: - Prior to the procedure, a History and Physical was performed, and patient medications, allergies and sensitivities were reviewed. The patient's tolerance of previous anesthesia was reviewed. - ASA Grade Assessment: II - A patient with mild systemic disease. After obtaining informed consent, the endoscope was passed under direct vision. Throughout the procedure, the patient's blood pressure, pulse, and oxygen saturations were monitored continuously. The scope was introduced through the mouth, and advanced to the third part of duodenum. The upper GI endoscopy was accomplished with ease. The patient tolerated the procedure well. Findings: The upper third of the esophagus, middle third of the esophagus and lower third of the esophagus were normal. The Z-line was regular and was found 37 cm from the incisors. Patchy mild inflammation characterized by erythema was found in the entire examined stomach. Biopsies were taken with a cold forceps for Helicobacter pylori testing. Evidence of a patent Billroth I gastroduodenostomy was found. A gastric pouch was found. The gastroduodenal anastomosis was characterized by healthy appearing mucosa. This was traversed. The examined duodenum was normal. Verification of patient identification for the specimen was done by the physician and nurse using the patient's name, date and medical record number. Impression: - Normal upper third of esophagus, middle third of esophagus and lower third of esophagus. - Z-line regular, 37 cm from the incisors. - Gastritis. Biopsied. - Patent Billroth I gastroduodenostomy was found, characterized by healthy appearing mucosa. - Normal examined duodenum. Recommendation: - Await pathology results. - No aspirin, ibuprofen, naproxen, or other non-steroidal anti-inflammatory drugs. - Discharge patient to home (with escort). Jac Fuentes M.D. Jac Fuentes MD 10/14/2017 9:56:50 AM This report has been signed electronically. Note Initiated On: 10/14/2017 9:42 AM I attest to the content of the Intraoperative Record and orders documented therein, exceptions below
[2017-10-14 10:25] VITALS: BP 139/78; PULSE 90; O2SAT 93
--- NOTE | 2017-10-14 10:30 | Anesthesiology Progress Note ---
Anesthesia Post Op Note Date & Time Oct 14, 2017 at 10:30 Vital Signs Pain Intensity: 0 Vital Signs Past 12 Hours Date Time Temp Pulse Resp B/P (MAP) Pulse Ox O2 Delivery O2 Flow Rate FiO2 10/14/17 10:10 89 16 127/80 (96) 93 Room Air 10/14/17 09:55 80 16 105/62 (76) 95 Room Air 10/14/17 08:40 36.2 89 20 121/57 (78) 92 Room Air Notes Mental Status: alert / awake / arousable, participated in evaluation Pt Amnestic to Procedure: Yes Nausea / Vomiting: adequately controlled Pain: adequately controlled Airway Patency, RR, SpO2: stable & adequate BP & HR: stable & adequate Hydration State: stable & adequate Anesthetic Complications: no major complications apparent
== END | disposition home or self-care (01) ==
LOC: C.GI 08:13
PROVIDERS: ATTEND Internal Medicine Gastroenterology
DX: K92.1 Melena (principal); K29.50 Unspecified chronic gastritis without bleeding; I12.9 Hypertensive chronic kidney disease with stage 1 through stage 4 chronic kidney disease, or unspecified chronic kidney disease; E11.22 Type 2 diabetes mellitus with diabetic chronic kidney disease; J45.909 Unspecified asthma, uncomplicated; K21.9 Gastro-esophageal reflux disease without esophagitis; E78.00 Pure hypercholesterolemia, unspecified; N18.9 Chronic kidney disease, unspecified; F32.9 Major depressive disorder, single episode, unspecified; F41.9 Anxiety disorder, unspecified; Z86.73 Personal history of transient ischemic attack (TIA), and cerebral infarction without residual deficits; Z90.710 Acquired absence of both cervix and uterus; Z90.49 Acquired absence of other specified parts of digestive tract; Z87.891 Personal history of nicotine dependence; Z98.890 Other specified postprocedural states; Z88.0 Allergy status to penicillin; Z88.2 Allergy status to sulfonamides; Z79.4 Long term (current) use of insulin; Z79.899 Other long term (current) drug therapy; Z79.02 Long term (current) use of antithrombotics/antiplatelets

== ENCOUNTER 2017-12-31 22:20 | Emergency (ER) | payer OTHER ==
[~2017-12-31] VITALS: Ht 157.5 cm; Wt 89.9 kg
[~2017-12-31 22:20] MED LIST changes: -LIDOCAINE HCL 2% 2 ML VIAL (20MG/ML) ONE; -PROPOFOL IV EMULSION 10 MG/ML 20 ML VIAL IV ONE; -SODIUM CHLORIDE 0.9% 500ML 500 ML IV ONE
[2017-12-31] MEDS ORDERED: SODIUM CHLORIDE 0.9% 1000ML 500 ML IV STA (22:31)
[2017-12-31 22:41] VITALS: TEMP 36.6; O2SAT 95; Ht 157.5 cm; Wt 89.9 kg
[2017-12-31 22:50] LABS: BASO % 0.5 %; BASO ABS # 0.03 K/uL (0-0.2); EOS % 4.4 %; EOS ABS # 0.28 K/uL (0-0.5); HEMATOCRIT 37.2 % (37-47); HEMOGLOBIN 12.8 g/dL (12.0-16.0); IG# 0.03 K/uL (0.00-0.02); LYMPH % 34.8 %; LYMPH ABS # 2.19 K/uL (1.2-3.4); MEAN CELL VOLUME 77.8 fL (80-100); MEAN CORPUSCULAR HEMOGLOBIN 26.8 pg (25-34); MEAN CORPUSCULAR HGB CONC 34.4 g/dl (32-36); MEAN PLATELET VOLUME 9.1 fL (7.4-10.4); MONO % 6.8 %; MONO ABS # 0.43 K/uL (0.11-0.59); NEUT ABS # 3.34 K/uL (1.4-6.5); PLATELET COUNT 181 K/uL (130-400); RED CELL DISTRIBUTION WIDTH CV 15.1 % (11.5-14.5); RED CELL DISTRIBUTION WIDTH SD 42.3 fL (36.4-46.3)
--- NOTE | 2017-12-31 22:53 | EMERGENCY ROOM VISIT NOTE ---
History Report prepared by Lenora: Christa Pitts Under the Supervision of: Dr. Nilay Tyson M.D. First contact with patient: 22:22 Stated Complaint: HYPERTENSION, HYPERGLYCEMIA History of Present Illness The patient is a 77 year old female who presents to the Emergency Room with complaints of a constant itchy rash for a month. The patient's daughter states that the patient was diagnosed with a UTI a month ago and was started on an antibiotic. She states that she shortly after developed this rash. She states that she was then started on Macrobid. She reports that the rash did not disappear so her PCP stopped the Macrobid as well. She states that they started the patient on using Clotrimazole cream which has still not gotten rid of the rash. She reports that it has been over a week since the patient has taken an antibiotic. The patient states that the rash is itchy and covers her from head to toe. The patient states that she called the ambulance tonight because when she went to bed, the coughing and abdominal pain got so bad, she felt like she couldn't take it anymore. She notes that she has had the cough for over a year, but it has worsened in the last week. She notes that she still has burning with urination and was just at her PCP yesterday for another urine test, but the results are not back yet. The patient complains of back pain and diarrhea. The patient denies vomiting, nausea, and fever. The patient's daughter notes that her mother's sugars have been running in the 400s and sometimes the 500s for the past few weeks. Source of History: patient, family Onset: a month ago Position: other (global) Quality: other (itchy rash) Timing: constant Associated Symptoms: + cough (productive), + abdominal pain, + back pain, + diarrhea, + urinary symptoms (burning with urination), No fevers, No nausea, No vomiting Review of Systems See HPI for pertinent positives & negatives. A total of 10 systems reviewed and were otherwise negative. Past Medical & Surgical Medical Problems: (1) Dementia (2) Depression (3) DM type 2 (diabetes mellitus, type 2) (4) Dyslipidemia (5) GERD (gastroesophageal reflux disease) (6) HTN (hypertension) (7) Peptic ulcer (8) Renal calculi (9) Stroke Surgical Problems: (1) History of hysterectomy (2) S/p bilateral carpal tunnel release (3) S/P cholecystectomy Family History Cancer Diabetes mellitus FH: heart disease Hypertension Kidney stones Social History Smoking Status: Former Smoker Drug Use: none Marital Status: Housing Status: lives with significant other Occupation Status: retired Current/Historical Medications Scheduled Atorvastatin (Lipitor), 10 MG PO QPM Carbidopa/Levodopa (Sinemet 25MG/100MG), 0.5 TAB PO TID Clopidogrel (Plavix), 75 MG PO QAM Clotrimazole (Clotrimazole), 1 APPLN TOP BID Donepezil Hydrochloride (Aricept), 10 MG PO QAM Escitalopram (Lexapro), 10 MG PO QAM Gabapentin (Neurontin), 300 MG PO TID Insulin Aspart 70/30 (Novolog Mix 70/30), 60 UNITS SC BID Losartan Potassium (Cozaar), 50 MG PO QAM Magnesium Oxide (Mag-Ox), 1 TAB PO DAILY Nitrofurantoin Monohyd Macro (Nitrofurantoin Monohydrat), 1 CAP PO BID Pantoprazole (Protonix), 40 MG PO QPM Scheduled PRN Hydroxyzine Hcl (Atarax), 25 MG PO Q6H PRN for Itching Lorazepam (Ativan), 0.5 MG PO TID PRN for Anxiety Allergies Coded Allergies: Metaxalone (Verified Allergy, Unknown, unknown, 12/31/17) Penicillins (Verified Allergy, Unknown, RASH/HIVES(?), 12/31/17) Quinolones (Verified Allergy, Unknown, UNKNOWN, 12/31/17) Sulfa Antibiotics (Verified Allergy, Unknown, UNKNOWN, 12/31/17) Physical Exam Vital Signs Date Time Temp Pulse Resp B/P (MAP) Pulse Ox O2 Delivery O2 Flow Rate FiO2 12/31/17 23:33 86 20 164/95 98 Room Air 12/31/17 22:41 36.6 90 20 160/93 95 Room Air 12/31/17 22:41 95 Room Air 12/31/17 22:38 90 Physical Exam GENERAL: Patient is in no acute distress. HEENT: No acute trauma, normocephalic atraumatic, mucous membranes moist, no nasal congestion, no scleral icterus. NECK: No stridor, no adenopathy, no meningismus, trachea is midline. LUNGS: Crackles at the right base. Breath sounds equal. No wheezing. No respiratory distress. HEART: Without murmurs gallops or rubs, regular rate and rhythm. ABDOMEN: Soft, nontender, bowel sounds positive, no hernias, no peritonitis. EXTREMITIES: No cyanosis or edema, full range of motion of all the joints without pain or difficulty, no signs for acute trauma. NEUROLOGIC: Oriented x 3, no acute motor or sensory deficits, no focal weakness. SKIN: No jaundice, no diaphoresis. Scattered erythematous lesions, possibly consistent with urticaria. Excoriations from scratching noted. Medical Decision & Procedures ER Provider Diagnostic Interpretation: Radiology results as stated below per my review and radiologist interpretation: CHEST ONE VIEW PORTABLE CLINICAL HISTORY: Altered mental status. Weakness. COMPARISON STUDY: 12/27/2016 FINDINGS: The heart is the upper limits of normal in size. There is no failure. There is no focal pulmonary consolidation. There are no pleural effusions. There is minor basilar interstitial thickening.[ IMPRESSION: No active disease in the chest. Electronically signed by: Etienne Davis M.D. 12/31/2017 11:04 PM Dictated Date/Time: 12/31/2017 11:04 PM Laboratory Results 12/31/17 20:55 Red Blood Count 4.78, Mean Corpuscular Volume 77.8, Mean Corpuscular Hemoglobin 26.8, Mean Corpuscular Hemoglobin Concent 34.4, Mean Platelet Volume 9.1, Neutrophils (%) (Auto) 53.0, Lymphocytes (%) (Auto) 34.8, Monocytes (%) (Auto) 6.8, Eosinophils (%) (Auto) 4.4, Basophils (%) (Auto) 0.5, Neutrophils # (Auto) 3.34, Lymphocytes # (Auto) 2.19, Monocytes # (Auto) 0.43, Eosinophils # (Auto) 0.28, Basophils # (Auto) 0.03 12/31/17 20:55 Test 12/31/17 20:55 12/31/17 22:00 White Blood Count 6.30 K/uL (4.8-10.8) Red Blood Count 4.78 M/uL (4.2-5.4) Hemoglobin 12.8 g/dL (12.0-16.0) Hematocrit 37.2 % (37-47) Mean Corpuscular Volume 77.8 fL (80-100) Mean Corpuscular Hemoglobin 26.8 pg (25-34) Mean Corpuscular Hemoglobin Concent 34.4 g/dl (32-36) Platelet Count 181 K/uL (130-400) Mean Platelet Volume 9.1 fL (7.4-10.4) Neutrophils (%) (Auto) 53.0 % Lymphocytes (%) (Auto) 34.8 % Monocytes (%) (Auto) 6.8 % Eosinophils (%) (Auto) 4.4 % Basophils (%) (Auto) 0.5 % Neutrophils # (Auto) 3.34 K/uL (1.4-6.5) Lymphocytes # (Auto) 2.19 K/uL (1.2-3.4) Monocytes # (Auto) 0.43 K/uL (0.11-0.59) Eosinophils # (Auto) 0.28 K/uL (0-0.5) Basophils # (Auto) 0.03 K/uL (0-0.2) RDW Standard Deviation 42.3 fL (36.4-46.3) RDW Coefficient of Variation 15.1 % (11.5-14.5) Immature Granulocyte % (Auto) 0.5 % Immature Granulocyte # (Auto) 0.03 K/uL (0.00-0.02) Anion Gap 6.0 mmol/L (3-11) Est Creatinine Clear Calc Drug Dose 39.9 ml/min Estimated GFR () 48.4 Estimated GFR (Non- 41.8 BUN/Creatinine Ratio 13.4 (10-20) Calcium Level 9.2 mg/dl (8.5-10.1) Magnesium Level 1.6 mg/dl (1.8-2.4) Total Bilirubin 1.1 mg/dl (0.2-1) Aspartate Amino Transf (AST/SGOT) 16 U/L (15-37) Alanine Aminotransferase (ALT/SGPT) 21 U/L (12-78) Alkaline Phosphatase 128 U/L (45-117) Troponin I < 0.015 ng/ml (0-0.045) Total Protein 7.6 gm/dl (6.4-8.2) Albumin 3.9 gm/dl (3.4-5.0) Globulin 3.7 gm/dl (2.5-4.0) Albumin/Globulin Ratio 1.1 (0.9-2) Thyroid Stimulating Hormone (TSH) 3.640 uIu/ml (0.300-4.500) Urine Color YELLOW Urine Appearance CLEAR (CLEAR) Urine pH 5.0 (4.5-7.5) Urine Specific [place] 1.012 (1.000-1.030) Urine Protein 2+ (NEG) Urine Glucose (UA) NEG (NEG) Urine Ketones NEG (NEG) Urine Occult Blood TRACE (NEG) Urine Nitrite POS (NEG) Urine Bilirubin NEG (NEG) Urine Urobilinogen NEG (NEG) Urine Leukocyte Esterase SMALL (NEG) Urine WBC (Auto) 10-30 /hpf (0-5) Urine RBC (Auto) 0-4 /hpf (0-4) Urine Hyaline Casts (Auto) 0 /lpf (0-5) Urine Epithelial Cells (Auto) >30 /lpf (0-5) Urine Bacteria (Auto) 4+ (NEG) Laboratory results reviewed by me. Medications Administered Medications (Trade) Dose Ordered Sig/Phil Route Start Time Stop Time Status Last Admin Dose Admin Sodium Chloride 500 ml @ 999 mls/hr Q31M STAT IV 12/31/17 22:31 12/31/17 23:01 DC 12/31/17 22:31 999 MLS/HR Magnesium Sulfate (Magnesium Sulfate 1gm / D5W) 1 gm NOW STAT IV 12/31/17 23:21 12/31/17 23:22 DC 12/31/17 23:46 1 GM Magnesium Oxide (Mag-Ox Tab) 400 mg NOW STAT PO 12/31/17 23:21 12/31/17 23:22 DC 12/31/17 23:45 400 MG Hydroxyzine HCl (Vistaril Tab) 25 mg NOW STAT PO 12/31/17 23:26 12/31/17 23:27 DC 12/31/17 23:45 25 MG ECG Per My Interpretation Indication: abdominal pain Rate (beats per minute): 92 Rhythm: normal sinus Findings: no ectopy, other (no PVCs, no ST elevations) ED Course 2223: The patient was evaluated in room A10. A complete history and physical exam was performed. 2230: Ordered NSS 500 ml @ 999 mls/hr IV. 0: I reevaluated the patient and she asked for something for itching. We are waiting on her urine. 2321: Ordered Mag-Ox Tab 400 mg PO, Magnesium Sulfate 1 gm IV. 2326: Ordered Vistaril Tab 25 mg PO. 2341: Reevaluated the patient. Discussed results and discharge instructions: She verbalized understanding and agreement. The patient is ready for discharge. Medical Decision Differential diagnoses include allergic reaction, hyperglycemia, dehydration, electrolyte imbalance, pneumonia, bronchitis, UTI. There is no leukocytosis or concerning anemia. Blood sugar is around 170, no kidney failure. Magnesium somewhat low at 1.6. No hepatitis. The patient appears to be in a euthyroid state. Urinalysis is suggestive of infection versus contamination. Urine culture is pending. EKG shows a sinus rhythm, no acute ischemia. Cardiac enzyme testing 1 is not consistent with acute cardiac injury. Chest film does not show pneumonia or pneumothorax. The patient received IV saline, she was given IV magnesium and oral magnesium oxide. She was given oral Atarax for itching. The patient has walked to the bathroom, she seems at baseline. Her biggest complaint to me is itching. I will try Atarax at home for the itch. She will continue her other meds as prescribed. I will add some magnesium for a week to boost her level. I do not want to treat the potential urinary infection as she has had so many issues with antibiotics-she blames the current rash and itching on an antibiotic. She has multiple antibiotic allergies. If her urine culture returns positive, treatment may be indicated at that point. Patient is in no way toxic, she does not want to stay in the hospital, I find no criteria for admission. She is being discharged with outpatient follow-up. Medication Reconcilliation Current Medication List: was personally reviewed by me Blood Pressure Screening Patient's blood pressure: Elevated blood pressure Blood pressure disposition: Referred to PCP Impression Primary Impression: Itching Additional Impressions: Hypomagnesemia Dysuria Cough Scribe Attestation The scribe's documentation has been prepared under my direction and personally reviewed by me in its entirety. I confirm that the note above accurately reflects all work, treatment, procedures, and medical decision making performed by me. Departure Information Dispostion Home / Self-Care Prescriptions Hydroxyzine Hcl (ATARAX) 25 Mg Tab 25 MG PO Q6H Y for Itching, #15 TAB Prov: Nilay Tyson M.D. 12/31/17 Magnesium Oxide (MAG-OX) 400 Mg Tab 1 TAB PO DAILY for 7 Days, #7 TAB Prov: Nilay Tyson M.D. 12/31/17 Referrals Trey Anderson M.D. (PCP) Forms HOME CARE DOCUMENTATION FORM, IMPORTANT VISIT INFORMATION, WORK / SCHOOL INSTRUCTIONS Additional Instructions try atarax 1 tab every 6 hours for itching as needed use mag ox 1 tab daily for the next week continue the cream you were given continue to monitor the blood sugars--value was good here this evening stay well hydrated follow with the [facility] md this week for a recheck return if worsening chest film today was ok Problem Qualifiers
--- NOTE | 2017-12-31 23:05 | DIAGNOSTIC IMAGING REPORT ---
CHEST ONE VIEW PORTABLE CLINICAL HISTORY: Altered mental status. Weakness. COMPARISON STUDY: 12/27/2016 FINDINGS: The heart is the upper limits of normal in size. There is no failure. There is no focal pulmonary consolidation. There are no pleural effusions. There is minor basilar interstitial thickening.[ IMPRESSION: No active disease in the chest. Electronically signed by: Etienne Davis M.D. 12/31/2017 11:04 PM Dictated Date/Time: 12/31/2017 11:04 PM
[2017-12-31] MEDS ORDERED: LTRCR45 TOP (23:15)
[2017-12-31] MEDS ORDERED: NITR100C6 PO (23:15)
[2017-12-31] MEDS ORDERED: NVLGI7030 SC (23:15)
[2017-12-31 23:19] LABS: ALBUMIN 3.9 gm/dl (3.4-5.0); ALKALINE PHOSPHATASE 128 U/L (45-117); ALT/SGPT 21 U/L (12-78); AST/SGOT 16 U/L (15-37); BLOOD UREA NITROGEN 17 mg/dl (7-18); CALCIUM 9.2 mg/dl (8.5-10.1); CARBON DIOXIDE 29 mmol/L (21-32); CREATININE 1.25 mg/dl (0.60-1.20); GLUCOSE 178 mg/dl (70-99); POTASSIUM 4.1 mmol/L (3.5-5.1); SODIUM 140 mmol/L (136-145); TOTAL PROTEIN 7.6 gm/dl (6.4-8.2)
[2017-12-31] MEDS ORDERED: MAGNESIUM OXIDE 400 MG TAB PO STA (23:21)
[2017-12-31] MEDS ORDERED: MAGNESIUM SULFATE 1GM / D5W 1 GM BAG IV STA (23:21)
[2017-12-31] MEDS ORDERED: hydrOXYzine HCL 25 MG TAB PO STA (23:26)
[2017-12-31] MEDS ORDERED: MAGN400T5 PO (23:41)
[2017-12-31] MEDS ORDERED: HYDR-3124 PO (23:41)
[2018-01-01 00:57] VITALS: BP 123/74; PULSE 74; O2SAT 95
--- NOTE | 2018-01-03 18:38 | Pharmacy Progress Note ---
ED Pharmacist Culture FollowUp Date of Service: January 03, 2018. Patient growing K. pneumoniae and E. coli in the urine. Patient also with extensive antibiotic allergy history with ongoing full body rash thought to be attributed to one if not more recent antibiotic courses (macrobid confirmed as one of these). Given this complicated history, I contacted Dr. Trey Anderson with whom the patient followed up with yesterday. I was informed by the nurse that Dr. Anderson put the patient on cefuroxime, which is resistant to one of the organisms growing in the urine. I then faxed the culture results to Dr. Anderson's office at the confirmed number of [phone] for review and further changes in therapy. The nurse stated they would call back to inform of any further antibiotic changes made. Two hours later, I called the office back to check on this progress. At this time, I was informed that the original fax number provided was for the entire department and it would be quicker to fax to the personal office number of Dr. Anderson which was confirmed to be . I then refaxed this and am still awaiting a call as to whether or not the antibiotic changes were necessary. I also attempted to call the patient to assess clinical status, but was only able to leave a voicemail. I attempted a third time to contact the office and will pass off to charge nurse until the morning.
== END 2018-01-01 00:59 | disposition home or self-care (01) ==
LOC: EDBD 22:20 → C.EDA 22:21
DX: L29.9 Pruritus, unspecified (principal); I10 Essential (primary) hypertension; E11.65 Type 2 diabetes mellitus with hyperglycemia; E83.42 Hypomagnesemia; R30.0 Dysuria; R05 Cough; Z79.899 Other long term (current) drug therapy; Z88.0 Allergy status to penicillin; Z88.8 Allergy status to other drugs, medicaments and biological substances; Z87.891 Personal history of nicotine dependence

== ENCOUNTER 2022-08-16 14:28 | Inpatient (IN) ==
--- NOTE | 2022-08-16 15:48 | XRay Report ---
XR chest 1V portable HISTORY: 82 years-old Female weakness acute weakness COMPARISON: Chest radiograph 02/02/2018 TECHNIQUE: AP view of the chest FINDINGS: Cardiac silhouette is enlarged. No pneumothorax, pleural effusion, airspace consolidation or overt pu lmonary edema. Mild right hemidiaphragmatic elevation. Mild chronic interstitial coarsening. Degenera tive changes of the shoulders and spine. Bilateral shoulder rotator cuff calcific tendinosis. Surgica l clips project over the epigastric distribution. IMPRESSION: No acute process. ACT 112: Negative or not required by law. The above report was generated using voice recognition software. It may contain grammatical, syntax o r spelling errors. Electronically signed by: Josias Darling M.D. 08/16/2022 3:45 PM
[2022-08-16] MEDS ORDERED: SODIUM CHLORIDE 0.9% 1000ML 500 ML IV ONE (15:53)
[2022-08-16 15:59] LABS: Influenza B virus by PCR Negative (Neg); RSV by PCR Negative (Neg); SARS CoV2 RNA(COVID-19) Ceph NEGATIVE (Negative)
[2022-08-16 16:04] LABS: Influenza A virus by PCR Positive (Neg)
--- NOTE | 2022-08-16 16:15 | Emergency Department Note ---
Impression & Plan Influenza A, Cough, Weakness, Falls, Contusion of hip, right ED Provider Note Provider: Diaz Fernandes MD DATE OF SERVICE: 08/16/2022 CHIEF COMPLAINT: Weakness, falls, cough HISTORY OF PRESENT ILLNESS: Patient is a 82-year-old female living at home with son and daughter provides additional care with a history of dementia as well as diabetes presenting the ambulance today from her son's home. Patient evidently over the last week or 2 has become more weaker. On last 2 days approximately 7 falls from standing or sitting. Complaining of some pain and bruising to her right hip. Patient denies significant chest pain or abdominal pain. Patient's think she has something to eat today and knows her daughter's name but is not a good historian otherwise related to her dementia. Daughter supplies additional history at bedside stating that the patient's dementia has been there but her weakness is worsening and she is now had multiple falls. Concerned about her care at home. Significant cough reported. EMS provided DuoNeb in route. PAST MEDICAL HISTORY: As noted above MEDICATIONS: Reviewed home medications SOCIAL HISTORY: Lives at home with son, distant history of smoking PHYSICAL EXAM: GENERAL: alert and oriented to person in no acute distress on stretcher in c- collar. Not a good historian to recent events Head: normocephalic and atraumatic EYES: No injection, discharge or icterus. PERRL, EOMI. NECK: Trachea midline. Supple in cervical collar without significant midline tenderness ENT: Mucous membranes pink and moist. Pharynx without erythema or exudate. LUNGS: Airway patent. No retractions. Breath sounds clear with good air entry bilaterally. HEART: Regular rate and rhythm. No chest wall tenderness ABDOMEN: Soft and non-tender, without guarding or rebound. BACK: No bilateral flank tenderness. SKIN: Acyanotic, warm, dry, without rashes EXTREMITIES: Without swelling, tenderness or deformity of the lower extremities but a approximately 6 cm contusion of the right lateral hip with tenderness here. NEUROLOGICAL: No focal deficits. No aphasia. No facial droop or slurred speech. EK bpm normal sinus rhythm. No PVC or PAC. No acute ST segment elevation or depression with QTC of 462. CONTINUOUS CARDIAC MONITORING: was ordered and showed a heart rate of 60s-70s bpm in normal sinus rhythm GCS 15. Patient's laboratory studies and imaging reviewed. Differential includes traumatic injuries, infection, dehydration, metabolic abnormality, hypo/hyperglycemia, electrolyte disturbance, anemia, hypoxia, cardiac sources, intracerebral event, toxicologic, neurologic, as well as other pathologies. IMPRESSION/MEDICAL DECISION MAKING: Patient history of dementia now was cough and increased weakness last several days. Decreased intake reported. Given small IV fluid bolus. DuoNeb with EMS. Is borderline hypoxic here with a distant history of smoking. Testing COVID- negative but flu positive possibly explain her symptomatologies. Chest x-ray without evidence of pneumonia. Basic blood work obtained. Given multiple falls over the last several days CT imaging the head, cervical spine, chest, abdomen pelvis will be obtained to exclude an occult injury as she is not the best historian with her dementia. Urine seems contaminated not truly infected. Imaging per radiology without significant acute traumatic injury noted. Has some contusion to the right hip likely explaining pain but do not see evidence of fracture based on imaging. Patient minimally hypoxic at times. Distant history of smoking. Influenza A likely contributing. Doubt pneumonia. Stable CKD. Mild leukopenia possibly viral related. Minimal anemia today at 10.3. C-collar removed. Updated patient and her daughter at bedside. Given her significant weakness with borderline oxygen levels discussed further care here at the hospital. Hospitalist contacted. Daughter also relays that she is concerned about how her mother will be able to get along at home and may need additional support there. DIAGNOSIS: Falls, weakness, influenza A DISPOSITION: Hospitalist will evaluate Patient was agreeable with this plan. Past Med/Surg History Medical History Dementia Depression Dyslipidemia GERD (gastroesophageal reflux disease) Hemiplegia and hemiparesis following cerebral infarction affecting left non- dominant side HTN (hypertension) Peptic ulcer Renal calculi Type 2 diabetes mellitus with stage 3a chronic kidney disease and hypertension Surgical History History of hysterectomy S/p bilateral carpal tunnel release S/P cholecystectomy Family History Mother Heart disease Father Cancer Social History (Updated 08/16/22 @ 17:32 by Norma Carter PA-C) Smoking Status: Former smoker Current Living Situation: Family Feels Safe at Home: Yes Assistive Devices: Walker and Wheelchair Allergies Allergies Allergy/AdvReac Type Severity Reaction Status Date / Time metaxalone Allergy Unknown unknown Verified 08/16/22 17:43 Penicillins Allergy Unknown RASH/HIVES( Verified 08/16/22 17:43 ?) Quinolones Allergy Unknown UNKNOWN Verified 08/16/22 17:43 Sulfa (Sulfonamide Allergy Unknown UNKNOWN Verified 08/16/22 17:43 Antibiotics) Home Meds Home Medications Medication Instructions Recorded Confirmed atorvastatin 10 mg tablet 10 mg PO DAILY 08/16/22 08/16/22 carbidopa 25 mg-levodopa 100 mg 1 tab PO TID 08/16/22 08/16/22 tablet clopidogrel 75 mg tablet (Plavix) 75 mg PO DAILY 08/16/22 08/16/22 donepezil 10 mg tablet 10 mg PO DAILY 08/16/22 08/16/22 escitalopram oxalate 20 mg tablet 20 mg PO DAILY 08/16/22 08/16/22 gabapentin 300 mg capsule 300 mg PO TID 08/16/22 08/16/22 insulin NPH-regular 70-30 U-100 60 unit subcut BID 08/16/22 08/16/22 insulin 100 unit/mL subcutaneous pen (Novolin 70-30 FlexPen U-100 Insulin) lorazepam 0.5 mg tablet 0.5 mg PO Q8 PRN Anxiety 08/16/22 08/16/22 losartan 50 mg tablet 50 mg PO DAILY 08/16/22 08/16/22 memantine 10 mg tablet 10 mg PO BID 08/16/22 08/16/22 pantoprazole 40 mg tablet,delayed 40 mg PO DAILY 08/16/22 08/16/22 release Results & Data (ED) Vital Signs Vital Signs - 24 hr 08/16/22 14:47 08/16/22 14:56 08/16/22 18:00 Temperature 36.9 C Temperature Source Oral Pulse Rate 73 Pulse Rate [Apical] 77 63 Respiratory Rate 16 16 18 Respiratory Effort / Characteristics Short of Breath Blood Pressure 132/63 Blood Pressure [Left Arm] 132/63 120/79 Blood Pressure Mean 86 Blood Pressure Mean [Left Arm] 86 92 Pulse Oximetry 88 L 96 100 Oxygen Delivery Method Room Air Room Air Nasal Cannula Oxygen Flow Rate 2 Sepsis Recent Fever Within 48 Hours No Sepsis New/Unexplained Change in Mental Status No Sepsis Action Taken by Nursing No Action Required Laboratory Data Result diagrams: 08/16/22 16:25 08/16/22 16:25 Lab Results 08/16/22 08/16/22 08/16/22 Range/Units 14:55 14:55 14:55 WBC Cancelled RBC Cancelled Hgb Cancelled Hct Cancelled MCV Cancelled MCH Cancelled MCHC Cancelled RDW Std Deviation Cancelled RDW Coeff of Arnulfo Cancelled Plt Count Cancelled MPV Cancelled Immature Gran % (Auto) Cancelled Neut % (Auto) Cancelled Lymph % (Auto) Cancelled [place] % (Auto) Cancelled Eos % (Auto) Cancelled Baso % (Auto) Cancelled Neut # (Auto) Cancelled Lymph # (Auto) Cancelled [place] # (Auto) Cancelled Eos # (Auto) Cancelled Baso # (Auto) Cancelled Immature Gran # (Auto) Cancelled Absolute Nucleated RBC Cancelled Nucleated RBC % (auto) Cancelled Neutrophils % (Manual) Cancelled Band Neutrophils % Cancelled Lymphocytes % (Manual) Cancelled Prolymphocyte % Cancelled Reactive Lymphs % (Man) Cancelled Monocytes % (Manual) Cancelled Eosinophils % (Manual) Cancelled Basophils % (Manual) Cancelled Metamyelocytes % (Man) Cancelled Myelocytes % (Man) Cancelled Promyelocytes % (Man) Cancelled Blast Cells % (Manual) Cancelled Plasma Cell % (Manual) Cancelled Other Cells % Cancelled Nucleated RBC % Cancelled Neutrophils # (Manual) Cancelled Band Neutrophils # Cancelled Total Absolute Neuts Cancelled Lymphocytes # (Manual) Cancelled Prolymphocyte # Cancelled Reactive Lymphs # Cancelled Total Abs Lymphocytes Cancelled Monocytes # (Manual) Cancelled Eosinophils # (Manual) Cancelled Basophils # (Manual) Cancelled Metamyelocytes # (Man) Cancelled Myelocytes # (Manual) Cancelled Promyelocytes # (Man) Cancelled Blast Cells # (Man) Cancelled Plasma Cell # (Manual) Cancelled Other Cells # Cancelled Nucleated RBCs # (Man) Cancelled Hypersegmented Neuts Cancelled Hyposegmented Neuts Cancelled Hypogranular Neuts Cancelled Large Granular Lymphs Cancelled # Lrg Granular Lymphs Cancelled Hairy Cells Cancelled Smudge Cells Cancelled Toxic Granulation Cancelled Toxic Vacuolation Cancelled Dohle Bodies Cancelled Zbigniew Rods Cancelled Platelet Estimate Cancelled Hypogranular Platelets Cancelled Clumped Platelets Cancelled Giant Platelets Cancelled Platelet Satelliting Cancelled RBC Morphology Cancelled Polychromasia Cancelled Hypochromasia Cancelled Poikilocytosis Cancelled Basophilic Stippling Cancelled Anisocytosis Cancelled Microcytosis Cancelled Macrocytosis Cancelled Spherocytes Cancelled Pappenheimer Bodies Cancelled Sickle Cells Cancelled Target Cells Cancelled Tear Drop Cells Cancelled Ovalocytes Cancelled Stomatocytes Cancelled Flower-Yulee Bodies Cancelled Echinocytes Cancelled Acanthocytes (Spur) Cancelled Rouleaux Cancelled RBC Agglutinates Cancelled Schistocytes Cancelled Sezary Cell Cancelled Sodium Cancelled Potassium Cancelled Chloride Cancelled Carbon Dioxide Cancelled Anion Gap Cancelled BUN Cancelled Creatinine Cancelled Est Cr Clr Drug Dosing Cancelled Est GFR ( Amer) Cancelled Est GFR (Non-Af Amer) Cancelled BUN/Creatinine Ratio Cancelled Glucose Cancelled Calcium Cancelled Total Bilirubin Cancelled AST Cancelled ALT Cancelled Alkaline Phosphatase Cancelled Troponin I High Sens Cancelled Total Protein Cancelled Albumin Cancelled Globulin Cancelled Albumin/Globulin Ratio Cancelled TSH Cancelled Urine Color Urine Appearance (Clear) Urine pH (4.5-7.5) Ur Specific [place] (1.000-1.030) Urine Protein (Negative) Urine Glucose (UA) (Negative) Urine Ketones (Negative) Urine Blood (Negative) Urine Nitrite (Negative) Urine Bilirubin (Negative) Urine Urobilinogen (Negative) Ur Leukocyte Esterase (Negative) Urine WBC (Auto) (0-5) /hpf Urine RBC (Auto) (0-4) /hpf U Hyaline Cast (Auto) (0-5) /lpf U Epithel Cells (Auto) (0-5) /lpf Urine Bacteria (Auto) (Negative) SARS-CoV-2 (PCR) (Negative) Influenza Type A (PCR) (Neg) Influenza Type B (PCR) (Neg) RSV (RT-PCR) (Neg) Blood Parasites ID Cancelled 08/16/22 08/16/22 08/16/22 Range/Units 14:59 16:11 16:25 WBC RBC Hgb Hct MCV MCH MCHC RDW Std Deviation RDW Coeff of Arnulfo Plt Count MPV Immature Gran % (Auto) Neut % (Auto) Lymph % (Auto) [place] % (Auto) Eos % (Auto) Baso % (Auto) Neut # (Auto) Lymph # (Auto) [place] # (Auto) Eos # (Auto) Baso # (Auto) Immature Gran # (Auto) Absolute Nucleated RBC Nucleated RBC % (auto) Neutrophils % (Manual) Band Neutrophils % Lymphocytes % (Manual) Prolymphocyte % Reactive Lymphs % (Man) Monocytes % (Manual) Eosinophils % (Manual) Basophils % (Manual) Metamyelocytes % (Man) Myelocytes % (Man) Promyelocytes % (Man) Blast Cells % (Manual) Plasma Cell % (Manual) Other Cells % Nucleated RBC % Neutrophils # (Manual) Band Neutrophils # Total Absolute Neuts Lymphocytes # (Manual) Prolymphocyte # Reactive Lymphs # Total Abs Lymphocytes Monocytes # (Manual) Eosinophils # (Manual) Basophils # (Manual) Metamyelocytes # (Man) Myelocytes # (Manual) Promyelocytes # (Man) Blast Cells # (Man) Plasma Cell # (Manual) Other Cells # Nucleated RBCs # (Man) Hypersegmented Neuts Hyposegmented Neuts Hypogranular Neuts Large Granular Lymphs # Lrg Granular Lymphs Hairy Cells Smudge Cells Toxic Granulation Toxic Vacuolation Dohle Bodies Zbigniew Rods Platelet Estimate Hypogranular Platelets Clumped Platelets Giant Platelets Platelet Satelliting RBC Morphology Polychromasia Hypochromasia Poikilocytosis Basophilic Stippling Anisocytosis Microcytosis Macrocytosis Spherocytes Pappenheimer Bodies Sickle Cells Target Cells Tear Drop Cells Ovalocytes Stomatocytes Flower-Yulee Bodies Echinocytes Acanthocytes (Spur) Rouleaux RBC Agglutinates Schistocytes Sezary Cell Sodium 136 Potassium 4.2 Chloride 104 Carbon Dioxide 25 Anion Gap 7 BUN 41 H Creatinine 1.38 H Est Cr Clr Drug Dosing Not Reportable Est GFR ( Amer) 41.5 Est GFR (Non-Af Amer) 35.8 BUN/Creatinine Ratio 29.7 H Glucose 84 Calcium 8.0 L Total Bilirubin 1.2 H AST 23 ALT < 3 L Alkaline Phosphatase 69 Troponin I High Sens 15.4 H Total Protein 6.9 Albumin 3.9 Globulin 3.0 Albumin/Globulin Ratio 1.3 TSH Urine Color Yellow Urine Appearance Cloudy A (Clear) Urine pH 5.5 (4.5-7.5) Ur Specific [place] 1.010 (1.000-1.030) Urine Protein Negative (Negative) Urine Glucose (UA) Negative (Negative) Urine Ketones Negative (Negative) Urine Blood Negative (Negative) Urine Nitrite Negative (Negative) Urine Bilirubin Negative (Negative) Urine Urobilinogen Negative (Negative) Ur Leukocyte Esterase Trace H (Negative) Urine WBC (Auto) 5-10 H (0-5) /hpf Urine RBC (Auto) 0-4 (0-4) /hpf U Hyaline Cast (Auto) 1-5 (0-5) /lpf U Epithel Cells (Auto) >30 H (0-5) /lpf Urine Bacteria (Auto) 2+ H (Negative) SARS-CoV-2 (PCR) NEGATIVE (Negative) Influenza Type A (PCR) Positive A* (Neg) Influenza Type B (PCR) Negative (Neg) RSV (RT-PCR) Negative (Neg) Blood Parasites ID 08/16/22 08/16/22 Range/Units 16:25 16:25 WBC 3.42 L RBC 4.00 Hgb 10.3 L Hct 31.8 L MCV 79.5 L MCH 25.8 MCHC 32.4 RDW Std Deviation 43.4 RDW Coeff of Arnulfo 15.1 H Plt Count 217 MPV 9.8 Immature Gran % (Auto) 0.3 Neut % (Auto) 64.3 Lymph % (Auto) 24.3 [place] % (Auto) 9.6 Eos % (Auto) 0.9 Baso % (Auto) 0.6 Neut # (Auto) 2.20 Lymph # (Auto) 0.83 L [place] # (Auto) 0.33 Eos # (Auto) 0.03 Baso # (Auto) 0.02 Immature Gran # (Auto) 0.01 Absolute Nucleated RBC Nucleated RBC % (auto) Neutrophils % (Manual) Band Neutrophils % Lymphocytes % (Manual) Prolymphocyte % Reactive Lymphs % (Man) Monocytes % (Manual) Eosinophils % (Manual) Basophils % (Manual) Metamyelocytes % (Man) Myelocytes % (Man) Promyelocytes % (Man) Blast Cells % (Manual) Plasma Cell % (Manual) Other Cells % Nucleated RBC % Neutrophils # (Manual) Band Neutrophils # Total Absolute Neuts Lymphocytes # (Manual) Prolymphocyte # Reactive Lymphs # Total Abs Lymphocytes Monocytes # (Manual) Eosinophils # (Manual) Basophils # (Manual) Metamyelocytes # (Man) Myelocytes # (Manual) Promyelocytes # (Man) Blast Cells # (Man) Plasma Cell # (Manual) Other Cells # Nucleated RBCs # (Man) Hypersegmented Neuts Hyposegmented Neuts Hypogranular Neuts Large Granular Lymphs # Lrg Granular Lymphs Hairy Cells Smudge Cells Toxic Granulation Toxic Vacuolation Dohle Bodies Zbigniew Rods Platelet Estimate Hypogranular Platelets Clumped Platelets Giant Platelets Platelet Satelliting RBC Morphology Polychromasia Hypochromasia Poikilocytosis Basophilic Stippling Anisocytosis Microcytosis Macrocytosis Spherocytes Pappenheimer Bodies Sickle Cells Target Cells Tear Drop Cells Ovalocytes Stomatocytes Flower-[place] Bodies Echinocytes Acanthocytes (Spur) Rouleaux RBC Agglutinates Schistocytes Sezary Cell Sodium Potassium Chloride Carbon Dioxide Anion Gap BUN Creatinine Est Cr Clr Drug Dosing Est GFR ( Amer) Est GFR (Non-Af Amer) BUN/Creatinine Ratio Glucose Calcium Total Bilirubin AST ALT Alkaline Phosphatase Troponin I High Sens Total Protein Albumin Globulin Albumin/Globulin Ratio TSH 0.962 Urine Color Urine Appearance (Clear) Urine pH (4.5-7.5) Ur Specific [place] (1.000-1.030) Urine Protein (Negative) Urine Glucose (UA) (Negative) Urine Ketones (Negative) Urine Blood (Negative) Urine Nitrite (Negative) Urine Bilirubin (Negative) Urine Urobilinogen (Negative) Ur Leukocyte Esterase (Negative) Urine WBC (Auto) (0-5) /hpf Urine RBC (Auto) (0-4) /hpf U Hyaline Cast (Auto) (0-5) /lpf U Epithel Cells (Auto) (0-5) /lpf Urine Bacteria (Auto) (Negative) SARS-CoV-2 (PCR) (Negative) Influenza Type A (PCR) (Neg) Influenza Type B (PCR) (Neg) RSV (RT-PCR) (Neg) Blood Parasites ID Administered Medications Discontinued Medications Sodium Chloride (Nss 1000ml) 500 mls @ 999 mls/hr IV .Q31M ONE Stop: 08/16/22 16:23 Last Admin: 08/16/22 16:55 Dose: 999 mls/hr Documented By: [facility] Imaging Data Radiologist's Impression: Chest X-Ray 08/16/22 15:08 XR chest 1V portable HISTORY: 82 years-old Female weakness acute weakness COMPARISON: Chest radiograph 02/02/2018 TECHNIQUE: AP view of the chest FINDINGS: Cardiac silhouette is enlarged. No pneumothorax, pleural effusion, airspace consolidation or overt pulmonary edema. Mild right hemidiaphragmatic elevation. Mild chronic interstitial coarsening. Degenerative changes of the shoulders and spine. Bilateral shoulder rotator cuff calcific tendinosis. Surgical clips proje ct over the epigastric distribution. IMPRESSION: No acute process. ACT 112: Negative or not required by law. The above report was generated using voice recognition software. It may contain grammatical, syntax or spelling errors. Electronically signed by: Josias Darling M.D. 08/16/2022 3:45 PM Abdomen/Pelvis CT 08/16/22 15:52 CT abd pelvis wo con CLINICAL HISTORY: fall, R hip/pelvic pain TECHNIQUE: Helical axial images of the abdomen and pelvis were obtained. Automated dose lowering techniques and/or adjustment according to patient size were utilized for this exam This exam was performed without intravenous contr ast. COMPARISON: Comparison is made to CTA abdomen and pelvis 04/03/[address] abdomen pelvis 03/30/2016 FINDINGS: Lower chest: No acute abnormality. Liver: Unremarkable. No focal lesions are seen. Previously noted hepatic steatosis is less evident on today's exam. Calcified granulomata are seen in the liver compatible with old granulomatous disease. Gallbladder and biliary tree: Patient is status post cholecystectomy. Physiologic prominence of the biliary ducts is noted. Pancreas: Unremarkable, no focal lesions. Spleen: Unremarkable. Adrenals: Stable left adrenal adenoma. Kidneys and ureters: Postsurgical changes are seen in the right kidney compatible with vascular coiling. Bladder: Gas is noted in the bladder. Reproductive organs: Unremarkable. Bowel: Diverticulosis is seen without evidence of diverticulitis. Duodenal diverticulum is noted. Lymph nodes Retroperitoneal: Unremarkable. Pelvic: Unremarkable. Mesenteric: Unremarkable. Peritoneum: Normal. Vessels: Atherosclerotic calcifications are seen. Abdominal wall: Stable calcified density in the left gluteal soft tissues, likely dystrophic. Bones: Degenerative changes in the visualized spine. No acute fracture, in particular no fracture of the pelvis or right hip. A Schmorl's node has developed in L2 from the prior exam. IMPRESSION: 1. No acute abnormality and in particular no evidence of acute fracture in this patient with right pelvic and hip pain. 2. Diverticulosis without diverticulitis. 3. Status post cholecystectomy. 4. Vascular: Right kidney, unchanged. ACT 112: Negative or not required by law. Electronically signed by: Juan Mckinney M.D. 08/16/2022 5:[address] 08/16/22 15:52 CT SCAN OF THE CERVICAL SPINE CLINICAL HISTORY: Falls. COMPARISON STUDY: CT of the cervical spine dated 11/17/2016. TECHNIQUE: CT scan of the cervical spine is performed from the skull base to the upper thoracic spine. Images are reviewed in the axial, sagittal, and coronal planes. IV contrast was not administered for this examination. A dose lowering technique was utilized adhering to the principles of ALARA. CT DOSE: 3216.05 mGy.cm FINDINGS: Skeletal structures: The skeletal structures are osteopenic. There is no evidence of fracture or subluxation involving the cervical spine. Vertebral body height there is maintained. There is minimal anterolisthesis at C3-C4 and C7-T1. Alignment is otherwise preserved. There is straightening of the cervical lordosis with reversal centered at C5. Anterior osteophytes are seen throughout. The odontoid process and lateral masses are intact. The atlantoaxial articulation is preserved note is productive degenerative change. The spinous processes appear intact. There is moderate multilevel cervical spondylosis. Uncovertebral and facet arthropathy contribute to neural foraminal narrowing at several levels. Intervertebral discs: There is advanced disc space narrowing with endplate sclerosis is seen at C4-C5, C5-C6, and C6-C7. Central canal: Posterior disc osteophyte complexes at C4-C5, C5-C6, and C6-C7 likely contribute to acquired compromise of the central canal. Soft tissues: The prevertebral and paraspinous soft tissues are within normal limits. There is atherosclerotic calcification of the carotid bulbs. Calvarium: The visualized calvarium at the skull base appears intact. Brain parenchyma: Partially visualized brain parenchyma at the skull base is within normal limits. Sinuses and mastoids: Mucosal thickening is noted in the sphenoid sinuses. There is trace right mastoid effusion. The left mastoid air cells are well pneumatized. Lung apices: Clear as visualized. IMPRESSION: 1. There is no evidence of fracture or subluxation involving the cervical spine. 2. Osteopenia and spondylotic change as above. ACT 112: Negative or not required by law. Electronically signed by: Nilay Morales M.D. 08/16/2022 4:[address] 08/16/22 15:52 CT chest diagnostic wo con CLINICAL HISTORY: falls, cough TECHNIQUE: Multidetector row helical CT of the chest was performed. Coronal and sagittal reformations were obtained. Automated dose lowering techniques and/or adjustment according to patient size were utilized for this exam. Comparison: Comparison is made to chest radiograph 08/16/2022 FINDINGS: Lungs and pleura: Atelectasis versus scarring is seen in the dependent portions of the lungs. Bronchial wall thickening is seen with minimal emphysema. Exam is limited due to patient motion. Heart and pericardium: Cardiomegaly is seen with biatrial enlargement. Mitral annular calcification is seen. Vessels: Moderate atherosclerotic changes in the aorta and coronary arteries. Mediastinum and víctor: Subcentimeter lymph nodes are seen. Chest wall and lower neck: Subcutaneous soft tissue nodule in the right anterior chest wall measures 13 mm, possibly a sebaceous cyst. Abdomen: For findings below the diaphragm, please refer to CT of the abdomen dated the same. Bones: Unremarkable. IMPRESSION: 1. No acute abnormalities, in particular no evidence of acute fracture or pneumonia/aspiration. 2. Atelectasis, emphysema, and bronchial wall thickening are partially visualized. ACT 112: Negative or not required by law. Electronically signed by: Juan Mckinney M.D. 08/16/2022 4:[address] 08/16/22 15:52 CT SCAN OF THE BRAIN WITHOUT IV CONTRAST CLINICAL HISTORY: Fall. COMPARISON STUDY: CT of the brain dated 12/27/2016. TECHNIQUE: Unenhanced axial CT scan of the brain is performed from the vertex to the skull base. A dose lowering technique was utilized adhering to the principles of ALARA. FINDINGS: Brain parenchyma: There is age-related involutional change noting moderate confluent subcortical and periventricular microangiopathic disease. There is no hemorrhage, mass effect, or evidence of acute territorial ischemia by CT criteria. Gary-white matter differentiation is preserved. No extra-axial fluid collection is seen. Ventricles, sulci, cisterns: Prominent secondary to involutional change. Intracranial vasculature: There is atherosclerotic calcification of the cavernous carotid and vertebral arteries. Calvarium: The skeletal structures are osteopenic. No depressed calvarial fracture is identified. Sinuses and mastoids: Mild mucosal thickening is noted within the frontal, ethmoid, sphenoid, and maxillary sinuses. There is trace right mastoid effusion. The left mastoid air cells are well pneumatized. Orbits: The bony orbits are grossly intact. There are bilateral ocular lens implants. IMPRESSION: There is no hemorrhage, mass effect, or evidence of acute territorial ischemia by CT criteria. ACT 112: Negative or not required by law. Electronically signed by: Nilay Morales M.D. 08/16/2022 4:52 PM Discharge Plan Visit Data Chief Complaint: Fall Stated Complaint: FALL, NECK & BACK PAIN, WEAKNESS ED Provider: Diaz Fernandes Discharge Problem: Influenza A, Cough, Weakness, Falls, Contusion of hip, right Patient Disposition: Admitted As Inpatient Forms Stand Alone Forms: [facility] Prescriptions Prescriptions: No Action losartan 50 mg Tablet 50 mg PO DAILY atorvastatin 10 mg Tablet 10 mg PO DAILY donepezil 10 mg Tablet 10 mg PO DAILY Rx Instructions: take with largest meal of day. clopidogrel [Plavix] 75 mg Tablet 75 mg PO DAILY lorazepam 0.5 mg Tablet 0.5 mg PO Q8 PRN (Reason: Anxiety) pantoprazole 40 mg Tablet,Delayed Release (Dr/Ec) 40 mg PO DAILY gabapentin 300 mg Capsule 300 mg PO TID carbidopa-levodopa 25-100 mg Tablet 1 tab PO TID escitalopram oxalate 20 mg Tablet 20 mg PO DAILY memantine 10 mg Tablet 10 mg PO BID Novolin 70-30 FlexPen U-100 100 unit/mL (70-30) Insulin Pen 60 unit SUBCUT BID Referrals Referrals: Trey Anderson MD [Primary Care Provider] -
[2022-08-16 16:41] LABS: Basophils # (auto) 0.02 K/uL (0-0.2); Basophils % (auto) 0.6 %; Eosinophils # (auto) 0.03 K/uL (0-0.50); Eosinophils % (auto) 0.9 %; Hematocrit (blood only) 31.8 % (34.1-44.9); Hemoglobin 10.3 g/dl (12.0-16.0); Immature Granulocytes # (auto) 0.01 K/uL (0.00-0.02); Immature Granulocytes % (auto) 0.3 %; Lymphocytes # (auto) 0.83 K/uL (1.2-3.4); Lymphocytes % (auto) 24.3 %; Mean Corpuscular Hemoglobin 25.8 pg (25.0-34.0); Mean Corpuscular Hgb Conc 32.4 g/dL (32.0-36.0); Mean Corpuscular Volume 79.5 fL (80.0-100.0); Mean Platelet Volume 9.8 fL (9.4-12.3); Monocytes # (auto) 0.33 K/uL (0.24-0.82); Monocytes % (auto) 9.6 %; Neutrophils % (auto) 64.3 %; Platelet Count 217 K/uL (130-400); RDW Coefficient of Variation 15.1 % (11.5-14.5); RDW Standard Deviation 43.4 fL (36.4-46.3); White Blood Count 3.42 K/ul (4.8-10.8)
--- NOTE | 2022-08-16 16:53 | CT Scan Report ---
CT SCAN OF THE BRAIN WITHOUT IV CONTRAST CLINICAL HISTORY: Fall. COMPARISON STUDY: CT of the brain dated 12/27/2016. TECHNIQUE: Unenhanced axial CT scan of the brain is performed from the vertex to the skull base. A do se lowering technique was utilized adhering to the principles of ALARA. FINDINGS: Brain parenchyma: There is age-related involutional change noting moderate confluent subcortical and periventricular microangiopathic disease. There is no hemorrhage, mass effect, or evidence of acute t erritorial ischemia by CT criteria. Gary-white matter differentiation is preserved. No extra-axial fl uid collection is seen. Ventricles, sulci, cisterns: Prominent secondary to involutional change. Intracranial vasculature: There is atherosclerotic calcification of the cavernous carotid and vertebr al arteries. Calvarium: The skeletal structures are osteopenic. No depressed calvarial fracture is identified. Sinuses and mastoids: Mild mucosal thickening is noted within the frontal, ethmoid, sphenoid, and max illary sinuses. There is trace right mastoid effusion. The left mastoid air cells are well pneumatize d. Orbits: The bony orbits are grossly intact. There are bilateral ocular lens implants. IMPRESSION: There is no hemorrhage, mass effect, or evidence of acute territorial ischemia by CT deepa quintero. ACT 112: Negative or not required by law. Electronically signed by: Nilay Morales M.D. 08/16/2022 4:52 PM
--- NOTE | 2022-08-16 16:58 | CT Scan Report ---
CT SCAN OF THE CERVICAL SPINE CLINICAL HISTORY: Falls. COMPARISON STUDY: CT of the cervical spine dated 11/17/2016. TECHNIQUE: CT scan of the cervical spine is performed from the skull base to the upper thoracic spine . Images are reviewed in the axial, sagittal, and coronal planes. IV contrast was not administered fo r this examination. A dose lowering technique was utilized adhering to the principles of ALARA. CT DOSE: 3216.05 mGy.cm FINDINGS: Skeletal structures: The skeletal structures are osteopenic. There is no evidence of fracture or subl uxation involving the cervical spine. Vertebral body height there is maintained. There is minimal ant erolisthesis at C3-C4 and C7-T1. Alignment is otherwise preserved. There is straightening of the cerv ical lordosis with reversal centered at C5. Anterior osteophytes are seen throughout. The odontoid pr ocess and lateral masses are intact. The atlantoaxial articulation is preserved note is productive de generative change. The spinous processes appear intact. There is moderate multilevel cervical spondyl osis. Uncovertebral and facet arthropathy contribute to neural foraminal narrowing at several levels. Intervertebral discs: There is advanced disc space narrowing with endplate sclerosis is seen at C4-C5 , C5-C6, and C6-C7. Central canal: Posterior disc osteophyte complexes at C4-C5, C5-C6, and C6-C7 likely contribute to ac quired compromise of the central canal. Soft tissues: The prevertebral and paraspinous soft tissues are within normal limits. There is athero sclerotic calcification of the carotid bulbs. Calvarium: The visualized calvarium at the skull base appears intact. Brain parenchyma: Partially visualized brain parenchyma at the skull base is within normal limits. Sinuses and mastoids: Mucosal thickening is noted in the sphenoid sinuses. There is trace right masto id effusion. The left mastoid air cells are well pneumatized. Lung apices: Clear as visualized. IMPRESSION: 1. There is no evidence of fracture or subluxation involving the cervical spine. 2. Osteopenia and spondylotic change as above. ACT 112: Negative or not required by law. Electronically signed by: Nilay Morales M.D. 08/16/2022 4:56 PM
--- NOTE | 2022-08-16 16:58 | CT Scan Report ---
CT chest diagnostic wo con CLINICAL HISTORY: falls, cough TECHNIQUE: Multidetector row helical CT of the chest was performed. Coronal and sagittal reformations were obtained. Automated dose lowering techniques and/or adjustment according to patient size were u tilized for this exam. Comparison: Comparison is made to chest radiograph 08/16/2022 FINDINGS: Lungs and pleura: Atelectasis versus scarring is seen in the dependent portions of the lungs. Bronchi al wall thickening is seen with minimal emphysema. Exam is limited due to patient motion. Heart and pericardium: Cardiomegaly is seen with biatrial enlargement. Mitral annular calcification i s seen. Vessels: Moderate atherosclerotic changes in the aorta and coronary arteries. Mediastinum and víctor: Subcentimeter lymph nodes are seen. Chest wall and lower neck: Subcutaneous soft tissue nodule in the right anterior chest wall measures 13 mm, possibly a sebaceous cyst. Abdomen: For findings below the diaphragm, please refer to CT of the abdomen dated the same. Bones: Unremarkable. IMPRESSION: 1. No acute abnormalities, in particular no evidence of acute fracture or pneumonia/aspiration. 2. Atelectasis, emphysema, and bronchial wall thickening are partially visualized. ACT 112: Negative or not required by law. Electronically signed by: Juan Mckinney M.D. 08/16/2022 4:56 PM
[2022-08-16 17:01] LABS: Anion Gap 7 (3-11); BUN Creatinine Ratio 29.7 (10-20); Blood Urea Nitrogen 41 mg/dl (6-23); Carbon Dioxide 25 mmol/L (21-32); Chloride 104 mmol/L (98-107); Est GFR (African American) 41.5 ml/min; Est GFR (Non-African American) 35.8 ml/min; Glucose 84 mg/dl (70-99(Fasting)); Potassium 4.2 mmol/L (3.5-5.1); Sodium 136 mmol/L (136-145)
[2022-08-16 17:04] LABS: Alanine Aminotransferase < 3 U/L (7-52); Albumin Globulin Ratio 1.3 (0.9-2); Albumin Level 3.9 gm/dl (3.4-5.0); Alkaline Phosphatase 69 U/L (34-104); Aspartate Aminotransferase 23 U/L (13-39); Bilirubin,Total 1.2 mg/dl (0.2-1.0); Total Protein 6.9 gm/dl (6.0-8.3)
--- NOTE | 2022-08-16 17:05 | CT Scan Report ---
CT abd pelvis wo con CLINICAL HISTORY: fall, R hip/pelvic pain TECHNIQUE: Helical axial images of the abdomen and pelvis were obtained. Automated dose lowering tech niques and/or adjustment according to patient size were utilized for this exam This exam was performe d without intravenous contrast. COMPARISON: Comparison is made to CTA abdomen and pelvis 04/03/[address] abdomen pelvis 03/30/2016 FINDINGS: Lower chest: No acute abnormality. Liver: Unremarkable. No focal lesions are seen. Previously noted hepatic steatosis is less evident on today's exam. Calcified granulomata are seen in the liver compatible with old granulomatous disease. Gallbladder and biliary tree: Patient is status post cholecystectomy. Physiologic prominence of the b iliary ducts is noted. Pancreas: Unremarkable, no focal lesions. Spleen: Unremarkable. Adrenals: Stable left adrenal adenoma. Kidneys and ureters: Postsurgical changes are seen in the right kidney compatible with vascular coili ng. Bladder: Gas is noted in the bladder. Reproductive organs: Unremarkable. Bowel: Diverticulosis is seen without evidence of diverticulitis. Duodenal diverticulum is noted. Lymph nodes Retroperitoneal: Unremarkable. Pelvic: Unremarkable. Mesenteric: Unremarkable. Peritoneum: Normal. Vessels: Atherosclerotic calcifications are seen. Abdominal wall: Stable calcified density in the left gluteal soft tissues, likely dystrophic. Bones: Degenerative changes in the visualized spine. No acute fracture, in particular no fracture of the pelvis or right hip. A Schmorl's node has developed in L2 from the prior exam. IMPRESSION: 1. No acute abnormality and in particular no evidence of acute fracture in this patient with right p elvic and hip pain. 2. Diverticulosis without diverticulitis. 3. Status post cholecystectomy. 4. Vascular: Right kidney, unchanged. ACT 112: Negative or not required by law. Electronically signed by: Juan Mckinney M.D. 08/16/2022 5:03 PM
[2022-08-16 17:06] LABS: Troponin I High Sensitivity 15.4 pg/ml (0-14)
[2022-08-16 17:10] LABS: Appearance Urine Cloudy (Clear); Bacteria Urine Automated 2+ (Negative); Bilirubin Urine Negative (Negative); Blood Urine Negative (Negative); Color Urine Yellow; Epithelial Cell Urine Auto >30 /lpf (0-5); Glucose Urine UA Negative (Negative); Ketones Urine Negative (Negative); Leukocyte Esterase Urine Trace (Negative); Nitrite Urine Negative (Negative); Protein Urine Negative (Negative); RBC Urine Automated 0-4 /hpf (0-4); Urobilinogen Urine Negative (Negative); pH Urine 5.5 (4.5-7.5)
--- NOTE | 2022-08-16 17:35 | History & Physical Report ---
Date of Service August 16, 2022 Assessment & Plan (1) Falls: Plan: 82 y/o female with a history of dementia, prior CVA with residual hemiparesis, insulin-requiring DM2 who presented to the ED with worsening falls and progression of underling dementia. Suspect acute worsening of chronic issues with ambulatory dysfunction related to acute infection with influenza A. However, family notes increasing difficulty keeping patient safe at home and would like to consider potential longer term placement. - Admit for additional evaluation including PT/OT - Continue supplemental O2 to maintain sats - Fall precautions (2) Influenza A: Plan: Pt is outside the window for Tamiflu. Continue supportive care. Wheezing noted on exam - Prednisone course - Zoe (3) DM type 2 (diabetes mellitus, type 2): Plan: A1c on 07/12/22 was 6.4. Family notes pt's sugars have been labile at home but it's also unclear if pt has been dosing her own insulin at times without family knowing - Will give basal insulin + sliding scale while admitted and monitor - Diabetic diet (4) HTN (hypertension): Plan: Overall appears controlled in ED - continue home meds (5) Dementia: Plan: See plan for #1 (6) Dyslipidemia: (7) GERD (gastroesophageal reflux disease): Plan Pt seen and reviewed with attending physician, Dr. Mac. Plan of care discussed and as outlined above. Pt's daughter was at the bedside and was updated - all questions answered. Code Status: Full Code DVT Prophylaxis: SubQ heparin Benito Carter PA-C History of Present Illness Chief Complaint: Recurrent falls, worsening dementia Primary Care Provider: Trey Anderson MD This is an 82 y/o female with a PMH of insulin-requiring DM2, dementia, prior CVA with residual left hemiparesis, GERD w/ prior hx PUD, HTN, dyslipidemia, depression, CKD3, and prior nephrolithiasis presented to the ED today via EMS after multiple falls at home. History from the patient is quite limited due to underlying dementia so additional history obtained from the pt's daughter at bedside and from review of the pt's oupatient medical record for PMH and current medications. Pt reportedly developed cough and congestion several days ago with associated fatigue and weakness. Sleeping more than usual. No fevers, nausea, or vomiting although appetite has been poor. Pt with poor ambulation at baseline - uses a walker at home, may use a wheelchair when out of the house for an appointment. However, over the last 48 hours, family reports she has had at least 7 falls at home. All seem to be related to weakness or loss of balance - family denies syncopal episodes. Family has also noted worsening of dementia symptoms at home - more confused, has taken her insulin incorrectly (same dose twice within short period of time with resultant hypoglycemia). They are concerned for their ability to keep her safe at home and would like to consider longer term options due to increased falls and worsening dementia. Allergies Allergy/AdvReac Type Severity Reaction Status Date / Time metaxalone Allergy Unknown unknown Verified 08/16/22 17:43 Penicillins Allergy Unknown RASH/HIVES( Verified 08/16/22 17:43 ?) Quinolones Allergy Unknown UNKNOWN Verified 08/16/22 17:43 Sulfa (Sulfonamide Allergy Unknown UNKNOWN Verified 08/16/22 17:43 Antibiotics) Home Medications Medication Instructions Recorded Confirmed Type atorvastatin 10 mg tablet 10 mg PO DAILY 08/16/22 08/16/22 History carbidopa 25 mg-levodopa 100 mg 1 tab PO TID 08/16/22 08/16/22 History tablet clopidogrel 75 mg tablet (Plavix) 75 mg PO DAILY 08/16/22 08/16/22 History donepezil 10 mg tablet 10 mg PO DAILY 08/16/22 08/16/22 History escitalopram oxalate 20 mg tablet 20 mg PO DAILY 08/16/22 08/16/22 History gabapentin 300 mg capsule 300 mg PO TID 08/16/22 08/16/22 History insulin NPH-regular 70-30 U-100 60 unit subcut BID 08/16/22 08/16/22 History insulin 100 unit/mL subcutaneous pen (Novolin 70-30 FlexPen U-100 Insulin) lorazepam 0.5 mg tablet 0.5 mg PO Q8 PRN Anxiety 08/16/22 08/16/22 History losartan 50 mg tablet 50 mg PO DAILY 08/16/22 08/16/22 History memantine 10 mg tablet 10 mg PO BID 08/16/22 08/16/22 History pantoprazole 40 mg tablet,delayed 40 mg PO DAILY 08/16/22 08/16/22 History release Past Med/Surg History Medical History Dementia Depression Dyslipidemia GERD (gastroesophageal reflux disease) Hemiplegia and hemiparesis following cerebral infarction affecting left non- dominant side HTN (hypertension) Peptic ulcer Renal calculi Type 2 diabetes mellitus with stage 3a chronic kidney disease and hypertension Surgical History History of hysterectomy S/p bilateral carpal tunnel release S/P cholecystectomy Family History Mother Heart disease Father Cancer Social History Smoking Status: Former smoker Second Hand Exposure: No; Do You Dip or Chew Tobacco: No; Hx Alcohol Use: No Hx Substance Use: No Preferred Language: Frisian Communication Ability: Effective Basketball Commentator Required: No Beliefs That Will Affect Care: None Current Living Situation: Family Current Living Situation Comment: Home with son Feels Safe at Home: Yes Assistive Devices: Walker Assistive Devices Comment: Walker Review of Systems Review of Systems: Limited due to underlying dementia Physical Exam Constitutional: well developed, well nourished and cooperative; no acute distress Eyes: PERRL, conjunctivae normal, anicteric sclerae ENMT: external ear and nose normal, oropharynx normal Neck: trachea midline Respiratory: coarse BS with faint expiratory wheeze Cardiovascular: Rate/Rhythm: regular rate and regular rhythm Gastrointestinal (Abdomen): Inspection/Auscultation: normal bowel sounds; abdomen not distended Percussion/Palpation: + abdomen tender (mild diffuse) and abdomen soft Musculoskeletal: right hip contusion with tenderness Skin: no jaundice 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, LE strength - 4/5, right pneumatic systems operator, LE strength 5/5 Psychiatric: pleasantly confused Results & Data Results & Data ([facility] [place]) Vital Signs (Past 12 Hours) Vital Signs Temp Pulse Pulse Resp BP BP Pulse Ox 08/16/22 14:56 77 16 132/63 96 08/16/22 14:47 36.9 C 73 16 132/63 88 L O2 Del Method 08/16/22 14:56 Room Air 08/16/22 14:47 Room Air Laboratory Results Laboratory Results - last 24 hr 08/16/22 08/16/22 08/16/22 14:55 14:55 14:55 WBC Cancelled RBC Cancelled Hgb Cancelled Hct Cancelled MCV Cancelled MCH Cancelled MCHC Cancelled RDW Std Deviation Cancelled RDW Coeff of Arnulfo Cancelled Plt Count Cancelled MPV Cancelled Immature Gran % (Auto) Cancelled Neut % (Auto) Cancelled Lymph % (Auto) Cancelled Cuming % (Auto) Cancelled Eos % (Auto) Cancelled Baso % (Auto) Cancelled Neut # (Auto) Cancelled Lymph # (Auto) Cancelled Cuming # (Auto) Cancelled Eos # (Auto) Cancelled Baso # (Auto) Cancelled Immature Gran # (Auto) Cancelled Absolute Nucleated RBC Cancelled Nucleated RBC % (auto) Cancelled Neutrophils % (Manual) Cancelled Band Neutrophils % Cancelled Lymphocytes % (Manual) Cancelled Prolymphocyte % Cancelled Reactive Lymphs % (Man) Cancelled Monocytes % (Manual) Cancelled Eosinophils % (Manual) Cancelled Basophils % (Manual) Cancelled Metamyelocytes % (Man) Cancelled Myelocytes % (Man) Cancelled Promyelocytes % (Man) Cancelled Blast Cells % (Manual) Cancelled Plasma Cell % (Manual) Cancelled Other Cells % Cancelled Nucleated RBC % Cancelled Neutrophils # (Manual) Cancelled Band Neutrophils # Cancelled Total Absolute Neuts Cancelled Lymphocytes # (Manual) Cancelled Prolymphocyte # Cancelled Reactive Lymphs # Cancelled Total Abs Lymphocytes Cancelled Monocytes # (Manual) Cancelled Eosinophils # (Manual) Cancelled Basophils # (Manual) Cancelled Metamyelocytes # (Man) Cancelled Myelocytes # (Manual) Cancelled Promyelocytes # (Man) Cancelled Blast Cells # (Man) Cancelled Plasma Cell # (Manual) Cancelled Other Cells # Cancelled Nucleated RBCs # (Man) Cancelled Hypersegmented Neuts Cancelled Hyposegmented Neuts Cancelled Hypogranular Neuts Cancelled Large Granular Lymphs Cancelled # Lrg Granular Lymphs Cancelled Hairy Cells Cancelled Smudge Cells Cancelled Toxic Granulation Cancelled Toxic Vacuolation Cancelled Dohle Bodies Cancelled Zbigniew Rods Cancelled Platelet Estimate Cancelled Hypogranular Platelets Cancelled Clumped Platelets Cancelled Giant Platelets Cancelled Platelet Satelliting Cancelled RBC Morphology Cancelled Polychromasia Cancelled Hypochromasia Cancelled Poikilocytosis Cancelled Basophilic Stippling Cancelled Anisocytosis Cancelled Microcytosis Cancelled Macrocytosis Cancelled Spherocytes Cancelled Pappenheimer Bodies Cancelled Sickle Cells Cancelled Target Cells Cancelled Tear Drop Cells Cancelled Ovalocytes Cancelled Stomatocytes Cancelled Flower-Long Hollow Bodies Cancelled Echinocytes Cancelled Acanthocytes (Spur) Cancelled Rouleaux Cancelled RBC Agglutinates Cancelled Schistocytes Cancelled Sezary Cell Cancelled Sodium Cancelled Potassium Cancelled Chloride Cancelled Carbon Dioxide Cancelled Anion Gap Cancelled BUN Cancelled Creatinine Cancelled Est Cr Clr Drug Dosing Cancelled Est GFR ( Amer) Cancelled Est GFR (Non-Af Amer) Cancelled BUN/Creatinine Ratio Cancelled Glucose Cancelled Calcium Cancelled Total Bilirubin Cancelled AST Cancelled ALT Cancelled Alkaline Phosphatase Cancelled Troponin I High Sens Cancelled Total Protein Cancelled Albumin Cancelled Globulin Cancelled Albumin/Globulin Ratio Cancelled TSH Cancelled Urine Color Urine Appearance Urine pH Ur Specific Farner Urine Protein Urine Glucose (UA) Urine Ketones Urine Blood Urine Nitrite Urine Bilirubin Urine Urobilinogen Ur Leukocyte Esterase Urine WBC (Auto) Urine RBC (Auto) U Hyaline Cast (Auto) U Epithel Cells (Auto) Urine Bacteria (Auto) SARS-CoV-2 (PCR) Influenza Type A (PCR) Influenza Type B (PCR) RSV (RT-PCR) Blood Parasites ID Cancelled 08/16/22 08/16/22 08/16/22 14:59 16:11 16:25 WBC RBC Hgb Hct MCV MCH MCHC RDW Std Deviation RDW Coeff of Arnulfo Plt Count MPV Immature Gran % (Auto) Neut % (Auto) Lymph % (Auto) Cuming % (Auto) Eos % (Auto) Baso % (Auto) Neut # (Auto) Lymph # (Auto) Cuming # (Auto) Eos # (Auto) Baso # (Auto) Immature Gran # (Auto) Absolute Nucleated RBC Nucleated RBC % (auto) Neutrophils % (Manual) Band Neutrophils % Lymphocytes % (Manual) Prolymphocyte % Reactive Lymphs % (Man) Monocytes % (Manual) Eosinophils % (Manual) Basophils % (Manual) Metamyelocytes % (Man) Myelocytes % (Man) Promyelocytes % (Man) Blast Cells % (Manual) Plasma Cell % (Manual) Other Cells % Nucleated RBC % Neutrophils # (Manual) Band Neutrophils # Total Absolute Neuts Lymphocytes # (Manual) Prolymphocyte # Reactive Lymphs # Total Abs Lymphocytes Monocytes # (Manual) Eosinophils # (Manual) Basophils # (Manual) Metamyelocytes # (Man) Myelocytes # (Manual) Promyelocytes # (Man) Blast Cells # (Man) Plasma Cell # (Manual) Other Cells # Nucleated RBCs # (Man) Hypersegmented Neuts Hyposegmented Neuts Hypogranular Neuts Large Granular Lymphs # Lrg Granular Lymphs Hairy Cells Smudge Cells Toxic Granulation Toxic Vacuolation Dohle Bodies Zbigniew Rods Platelet Estimate Hypogranular Platelets Clumped Platelets Giant Platelets Platelet Satelliting RBC Morphology Polychromasia Hypochromasia Poikilocytosis Basophilic Stippling Anisocytosis Microcytosis Macrocytosis Spherocytes Pappenheimer Bodies Sickle Cells Target Cells Tear Drop Cells Ovalocytes Stomatocytes Flower-Long [place] Bodies Echinocytes Acanthocytes (Spur) Rouleaux RBC Agglutinates Schistocytes Sezary Cell Sodium 136 Potassium 4.2 Chloride 104 Carbon Dioxide 25 Anion Gap 7 BUN 41 H Creatinine 1.38 H Est Cr Clr Drug Dosing Not Reportable Est GFR ( Amer) 41.5 Est GFR (Non-Af Amer) 35.8 BUN/Creatinine Ratio 29.7 H Glucose 84 Calcium 8.0 L Total Bilirubin 1.2 H AST 23 ALT < 3 L Alkaline Phosphatase 69 Troponin I High Sens 15.4 H Total Protein 6.9 Albumin 3.9 Globulin 3.0 Albumin/Globulin Ratio 1.3 TSH Urine Color Yellow Urine Appearance Cloudy A Urine pH 5.5 Ur Specific Farner 1.010 Urine Protein Negative Urine Glucose (UA) Negative Urine Ketones Negative Urine Blood Negative Urine Nitrite Negative Urine Bilirubin Negative Urine Urobilinogen Negative Ur Leukocyte Esterase Trace H Urine WBC (Auto) 5-10 H Urine RBC (Auto) 0-4 U Hyaline Cast (Auto) 1-5 U Epithel Cells (Auto) >30 H Urine Bacteria (Auto) 2+ H SARS-CoV-2 (PCR) NEGATIVE Influenza Type A (PCR) Positive A* Influenza Type B (PCR) Negative RSV (RT-PCR) Negative Blood Parasites ID 08/16/22 08/16/22 16:25 16:25 WBC 3.42 L RBC 4.00 Hgb 10.3 L Hct 31.8 L MCV 79.5 L MCH 25.8 MCHC 32.4 RDW Std Deviation 43.4 RDW Coeff of Arnulfo 15.1 H Plt Count 217 MPV 9.8 Immature Gran % (Auto) 0.3 Neut % (Auto) 64.3 Lymph % (Auto) 24.3 Cuming % (Auto) 9.6 Eos % (Auto) 0.9 Baso % (Auto) 0.6 Neut # (Auto) 2.20 Lymph # (Auto) 0.83 L Cuming # (Auto) 0.33 Eos # (Auto) 0.03 Baso # (Auto) 0.02 Immature Gran # (Auto) 0.01 Absolute Nucleated RBC Nucleated RBC % (auto) Neutrophils % (Manual) Band Neutrophils % Lymphocytes % (Manual) Prolymphocyte % Reactive Lymphs % (Man) Monocytes % (Manual) Eosinophils % (Manual) Basophils % (Manual) Metamyelocytes % (Man) Myelocytes % (Man) Promyelocytes % (Man) Blast Cells % (Manual) Plasma Cell % (Manual) Other Cells % Nucleated RBC % Neutrophils # (Manual) Band Neutrophils # Total Absolute Neuts Lymphocytes # (Manual) Prolymphocyte # Reactive Lymphs # Total Abs Lymphocytes Monocytes # (Manual) Eosinophils # (Manual) Basophils # (Manual) Metamyelocytes # (Man) Myelocytes # (Manual) Promyelocytes # (Man) Blast Cells # (Man) Plasma Cell # (Manual) Other Cells # Nucleated RBCs # (Man) Hypersegmented Neuts Hyposegmented Neuts Hypogranular Neuts Large Granular Lymphs # Lrg Granular Lymphs Hairy Cells Smudge Cells Toxic Granulation Toxic Vacuolation Dohle Bodies Zbigniew Rods Platelet Estimate Hypogranular Platelets Clumped Platelets Giant Platelets Platelet Satelliting RBC Morphology Polychromasia Hypochromasia Poikilocytosis Basophilic Stippling Anisocytosis Microcytosis Macrocytosis Spherocytes Pappenheimer Bodies Sickle Cells Target Cells Tear Drop Cells Ovalocytes Stomatocytes Flower-Long Hollow Bodies Echinocytes Acanthocytes (Spur) Rouleaux RBC Agglutinates Schistocytes Sezary Cell Sodium Potassium Chloride Carbon Dioxide Anion Gap BUN Creatinine Est Cr Clr Drug Dosing Est GFR ( Amer) Est GFR (Non-Af Amer) BUN/Creatinine Ratio Glucose Calcium Total Bilirubin AST ALT Alkaline Phosphatase Troponin I High Sens Total Protein Albumin Globulin Albumin/Globulin Ratio TSH 0.962 Urine Color Urine Appearance Urine pH Ur Specific Farner Urine Protein Urine Glucose (UA) Urine Ketones Urine Blood Urine Nitrite Urine Bilirubin Urine Urobilinogen Ur Leukocyte Esterase Urine WBC (Auto) Urine RBC (Auto) U Hyaline Cast (Auto) U Epithel Cells (Auto) Urine Bacteria (Auto) SARS-CoV-2 (PCR) Influenza Type A (PCR) Influenza Type B (PCR) RSV (RT-PCR) Blood Parasites ID Diagnostic Findings CT Head 08/16/22 - IMPRESSION: There is no hemorrhage, mass effect, or evidence of acute territorial ischemia by CT criteria. CT Chest 08/16/22 - IMPRESSION: 1. No acute abnormalities, in particular no evidence of acute fracture or pneumonia/aspiration. 2. Atelectasis, emphysema, and bronchial wall thickening are partially visualized. CT Cervical Spine 08/16/22 - IMPRESSION: 1. There is no evidence of fracture or subluxation involving the cervical spine. 2. Osteopenia and spondylotic change as above. CT Abd/Pel 08/16/22 - IMPRESSION: 1. No acute abnormality and in particular no evidence of acute fracture in this patient with right pelvic and hip pain. 2. Diverticulosis without diverticulitis. 3. Status post cholecystectomy. 4. Vascular: Right kidney, unchanged. Chest X-ray 08/16/22 - IMPRESSION: No acute process. Medications Administered Discontinued Medications Sodium Chloride (Nss 1000ml) 500 mls @ 999 mls/hr IV .Q31M ONE Stop: 08/16/22 16:23 Last Admin: 08/16/22 16:55 Dose: 999 mls/hr Documented By: AMS Supervising Physician Co-Signing Physician Notes Pt was seen and examined. Agreed with Ritchie MORELOS exam, assessment and plan. 82 y/o female with a PMH of insulin-requiring DM2, dementia, prior CVA with residual left hemiparesis, GERD w/ prior hx PUD, HTN, dyslipidemia, depression, CKD3, and prior nephrolithiasis presented to the ED today via EMS after multiple falls at home. History obtained mostly from daughter at beside due to patient dementia. Family denies any syncopal episode. Daughter said pt has been congested and cough for the last several days. In the ER she was testing positive for Influenza. Family said that pt fell a couple times. CT cervical spine, abdomen pelvis, chest, and head CT showed no evidence of fracture. Continue PT/OT, Fall precaution. Will consider to start on a low dose of prednisone. Will add neb treatment and guaifenesin. Will continue monitor closely. MD Bubba
--- NOTE | 2022-08-16 19:11 | Electrocardiogram Report ---
Test Reason : Blood Pressure : / mmHG Vent. Rate : 069 BPM Atrial Rate : 069 BPM P-R Int : 198 ms QRS Dur : 096 ms QT Int : 432 ms P-R-T Axes : 069 -13 046 degrees QTc Int : 462 ms Poor data quality, interpretation may be adversely affected Normal sinus rhythm Normal ECG When compared with ECG of 31-DEC-2017 22:47, No significant change was found Confirmed by Leonardo Cooley ([id number]) on 08/16/2022 7:11:20 PM Referred By: SELF Confirmed By:Samy Cooley
[2022-08-16] MEDS ORDERED: GLUCOSE 10 TAB/TUBE PO PRN (19:51)
[2022-08-16] MEDS ORDERED: GLUCAGON FOR INJ 1 MG VIAL SQ PRN (19:51)
[2022-08-16] MEDS ORDERED: GLUCOSE 40% GEL 15 GM TUBE PO PRN (19:51)
[2022-08-16] MEDS ORDERED: CARBOHYDRATES FOR HYPOGLYCEMIA PO PRN (19:51)
[2022-08-16] MEDS ORDERED: DEXTROSE 50% 50 ML SYRINGE IV PRN (19:51)
[2022-08-16] MEDS ORDERED: LANTUS PER UNIT CHARGE SQ SCH (21:00)
[2022-08-16] MEDS ORDERED: LORazepam 0.5 MG TAB PO PRN (21:29)
[2022-08-16] MEDS: INSULIN ASPART PER UNIT SC SCH (23:05)
[2022-08-17] MEDS: CARBIDOPA/LEVODOPA 25/100MG TAB PO SCH ×4 (00:45→23:07)
[2022-08-17] MEDS: GABAPENTIN 300 MG CAP PO SCH ×4 (00:46→23:08)
[2022-08-17] MEDS: LIDOCAINE 5% 1 PATCH TD SCH ×2 (00:47→23:11)
[2022-08-17] MEDS: MEMANTINE HCL 10 MG TAB PO SCH ×3 (00:48→23:10)
[2022-08-17] MEDS: HEPARIN SOD 5,000 UNIT/0.5 ML VIAL SQ SCH ×3 (00:49→23:08)
[2022-08-17] MEDS: ALBUT/IPRATROP 3MG/0.5MG NEB 3 ML VIAL NEB SCH ×4 (07:37→17:47)
[2022-08-17] MEDS: INSULIN ASPART PER UNIT SC SCH ×4 (08:52→22:58)
[2022-08-17] MEDS: ESCITALOPRAM OXALATE 20 MG TAB PO SCH (08:58)
[2022-08-17] MEDS: DONEPEZIL HCL 10 MG TAB PO SCH (08:58)
[2022-08-17] MEDS: predniSONE 20 MG TAB PO SCH (08:59)
[2022-08-17] MEDS: PANTOprazole 40 MG TAB PO SCH (08:59)
[2022-08-17] MEDS: LOSARTAN POTASSIUM 50 MG TAB PO SCH (08:59)
[2022-08-17] MEDS: ATORVASTATIN 10 MG TAB PO SCH (09:00)
[2022-08-17] MEDS: CLOPIDOGREL BISULFATE 75 MG TAB PO SCH (09:00)
[2022-08-17] MEDS: cefTRIAXone SODIUM 2,000 MG in DEXTROSE 5% 50 ML IV SCH (10:46)
--- NOTE | 2022-08-17 16:58 | Hospitalist Progress Note ---
Date of Service August 17, 2022 Assessment & Plan (1) Falls: Plan: Weakness 82 y/o female with a history of dementia, prior CVA with residual hemiparesis, insulin-requiring DM2 who presented to the ED with worsening falls and progression of underling dementia. Suspect acute worsening of chronic issues with ambulatory dysfunction related to acute infection with influenza A. However, family notes increasing difficulty keeping patient safe at home and would like to consider potential longer term placement. CT head showed no hemorrhage, mass effect, or evidence of acute territorial ischemia CT chest showed no acute abnormalities, in particular no evidence of acute fracture or pneumonia/aspiration. CT cervical showed no evidence of fracture or subluxation involving the cervical spine. CT abd/pelvis showed no acute abnormality and in particular no evidence of acute fracture in this patient with right pelvic and hip pain. Continue PT/OT eval fall precaution waiting for placement (2) Influenza A: Plan: Pt is outside the window for Tamiflu. Continue supportive care. Continue Prednisone course Continue DuoNebs (3) UTI (urinary tract infection): Plan: urine cx grew gram negative bacilli Starting on Ceftriaxone Will follow urine sensitivity (4) DM type 2 (diabetes mellitus, type 2): Plan: Most recent HbA1c on 07/12/22 was 6.4. 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 (5) HTN (hypertension): Plan: BP fluctuated Continue home BP meds (6) Dementia: Plan: Continue memantine and Donepezil, Carbidopa-levodopa Stable (7) Dyslipidemia: Plan: Continue statin (8) GERD (gastroesophageal reflux disease): Plan: Continue PPI Hx CVA Continue statin and plavix stable Plan Code Status: Full Code DVT Prophylaxis: SubQ heparin Admission and Anticipated Discharge Date Admission Date: August 16, 2022 Subjective Pt was seen and examined for follow up Lying in bed with no acute distress Pt said that she feels ok She said that she cough alot last night and not able to bring the phlegm out Denies any chest pain, palpitation, dizziness and SOB Review of Systems Review of Systems: All systems reviewed & are unremarkable except as noted in Subjective Physical Exam Physical Exam: General- No acute distress Head- atraumatic Eyes- PERRL, EOMI, ENT- oropharynx clear Neck- supple, no JVD Lungs- +coarse BS Heart- regular rhythm; no murmur Abdomen- normal bowel sounds, soft, nontender Extremities- no calf tenderness Neuro- alert, oriented x 3; PERRL, EOMI; no facial palsy; no dysarthria Skin- warm & dry Results & Data Results & [facility] ([facility]) Vital Signs (Past 12 Hours) Vital Signs Temp Pulse Pulse Resp BP Pulse Ox O2 Del Method 08/17/22 15:50 36.5 C 92 H 20 162/80 H 93 Room Air 08/17/22 15:16 75 08/17/22 14:55 79 18 97 Nasal Cannula 08/17/22 11:26 88 18 117/69 92 Room Air 08/17/22 11:01 69 18 93 Room Air 08/17/22 08:00 Nasal Cannula 08/17/22 07:40 72 20 128/82 100 Nasal Cannula 08/17/22 07:41 71 08/17/22 07:38 85 18 96 Nasal Cannula O2 Flow Rate 08/17/22 15:50 08/17/22 15:16 08/17/22 14:55 2 08/17/22 11:26 08/17/22 11:01 08/17/22 08:00 2 08/17/22 07:40 08/17/22 07:41 08/17/22 07:38 2
[2022-08-18] MEDS: ALBUT/IPRATROP 3MG/0.5MG NEB 3 ML VIAL NEB SCH ×2 (05:55→10:46)
[2022-08-18] MEDS: cefTRIAXone SODIUM 2,000 MG in DEXTROSE 5% 50 ML IV SCH (08:21)
[2022-08-18] MEDS: MEMANTINE HCL 10 MG TAB PO SCH ×2 (08:25→20:52)
[2022-08-18] MEDS: predniSONE 20 MG TAB PO SCH (08:25)
[2022-08-18] MEDS: PANTOprazole 40 MG TAB PO SCH (08:25)
[2022-08-18] MEDS: ATORVASTATIN 10 MG TAB PO SCH (08:25)
[2022-08-18] MEDS: ESCITALOPRAM OXALATE 20 MG TAB PO SCH (08:25)
[2022-08-18] MEDS: CLOPIDOGREL BISULFATE 75 MG TAB PO SCH (08:25)
[2022-08-18] MEDS: DONEPEZIL HCL 10 MG TAB PO SCH (08:25)
[2022-08-18] MEDS: LOSARTAN POTASSIUM 50 MG TAB PO SCH (08:25)
[2022-08-18] MEDS: GABAPENTIN 300 MG CAP PO SCH ×3 (08:25→20:53)
[2022-08-18] MEDS: HEPARIN SOD 5,000 UNIT/0.5 ML VIAL SQ SCH ×2 (08:26→20:53)
[2022-08-18] MEDS: CARBIDOPA/LEVODOPA 25/100MG TAB PO SCH ×3 (08:26→20:52)
[2022-08-18] MEDS: INSULIN ASPART PER UNIT SC SCH ×4 (08:26→21:06)
[2022-08-18] MEDS ORDERED: ALBUT/IPRATROP 3MG/0.5MG NEB 3 ML VIAL NEB PRN (12:03)
[2022-08-18] MEDS: guaiFENesin 200 MG TAB PO SCH ×2 (14:03→20:52)
--- NOTE | 2022-08-18 17:29 | Hospitalist Progress Note ---
Date of Service August 18, 2022 Assessment & Plan (1) Falls: Plan: Weakness 82 y/o female with a history of dementia, prior CVA with residual hemiparesis, insulin-requiring DM2 who presented to the ED with worsening falls and progression of underling dementia. Suspect acute worsening of chronic issues with ambulatory dysfunction related to acute infection with influenza A. However, family notes increasing difficulty keeping patient safe at home and would like to consider potential longer term placement. CT head showed no hemorrhage, mass effect, or evidence of acute territorial ischemia CT chest showed no acute abnormalities, in particular no evidence of acute fracture or pneumonia/aspiration. CT cervical showed no evidence of fracture or subluxation involving the cervical spine. CT abd/pelvis showed no acute abnormality and in particular no evidence of acute fracture in this patient with right pelvic and hip pain. Continue PT/OT eval fall precaution waiting for placement (2) Influenza A: Plan: Pt is outside the window for Tamiflu. Continue supportive care. Continue Prednisone course Continue DuoNebs (3) UTI (urinary tract infection): Plan: urine cx grew gram negative bacilli Urine culture grew E. coli Currently on IV ceftriaxone Will transition to p.o. antibiotic (4) DM type 2 (diabetes mellitus, type 2): Plan: Most recent HbA1c on 07/12/22 was 6.4. 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 (5) HTN (hypertension): Plan: BP fluctuated Continue home BP meds (6) Dementia: Plan: Continue memantine and Donepezil, Carbidopa-levodopa Stable (7) Dyslipidemia: Plan: Continue statin (8) GERD (gastroesophageal reflux disease): Plan: Continue PPI Hx CVA Continue statin and plavix stable Plan Code Status: Full Code DVT Prophylaxis: SubQ heparin Admission and Anticipated Discharge Date Admission Date: August 16, 2022 Subjective Pt was seen and examined for follow up Sitting in chair with no acute distress Pt said that she feels ok Denies any chest pain, palpitation, dizziness and SOB Review of Systems Review of Systems: All systems reviewed & are unremarkable except as noted in Subjective Physical Exam Physical Exam: General- No acute distress Head- atraumatic Eyes- PERRL, EOMI, ENT- oropharynx clear Neck- supple, no JVD Lungs- +coarse BS Heart- regular rhythm; no murmur Abdomen- normal bowel sounds, soft, nontender Extremities- no calf tenderness Neuro- alert, oriented x 3; PERRL, EOMI; no facial palsy; no dysarthria Skin- warm & dry Results & Data Results & Data ([facility]) Vital Signs (Past 12 Hours) Vital Signs Temp Pulse Resp BP Pulse Ox O2 Del Method 08/18/22 15:59 36.4 C L 83 18 120/61 96 Room Air 08/18/22 11:28 36.5 C 85 18 126/50 L 95 Room Air 08/18/22 10:46 83 18 91 Room Air 08/18/22 08:00 Room Air 08/18/22 07:37 36.9 C 78 18 151/72 H 92 Room Air
[2022-08-18] MEDS: LIDOCAINE 5% 1 PATCH TD SCH (20:51)
[2022-08-19] MEDS: guaiFENesin 200 MG TAB PO SCH ×4 (01:28→21:06)
[2022-08-19] MEDS: ATORVASTATIN 10 MG TAB PO SCH (07:57)
[2022-08-19] MEDS: HEPARIN SOD 5,000 UNIT/0.5 ML VIAL SQ SCH ×2 (07:57→21:05)
[2022-08-19] MEDS: LOSARTAN POTASSIUM 50 MG TAB PO SCH (07:57)
[2022-08-19] MEDS: PANTOprazole 40 MG TAB PO SCH (07:57)
[2022-08-19] MEDS: GABAPENTIN 300 MG CAP PO SCH ×3 (07:57→21:06)
[2022-08-19] MEDS: CLOPIDOGREL BISULFATE 75 MG TAB PO SCH (07:58)
[2022-08-19] MEDS: CARBIDOPA/LEVODOPA 25/100MG TAB PO SCH ×3 (07:58→21:07)
[2022-08-19] MEDS: MEMANTINE HCL 10 MG TAB PO SCH ×2 (07:58→21:06)
[2022-08-19] MEDS: predniSONE 20 MG TAB PO SCH (07:58)
[2022-08-19] MEDS: ESCITALOPRAM OXALATE 20 MG TAB PO SCH (07:59)
[2022-08-19] MEDS: DONEPEZIL HCL 10 MG TAB PO SCH (07:59)
[2022-08-19] MEDS: INSULIN ASPART PER UNIT SC SCH ×4 (08:05→21:05)
[2022-08-19] MEDS: cefTRIAXone SODIUM 2,000 MG in DEXTROSE 5% 50 ML IV SCH (09:22)
[2022-08-19] MEDS: LIDOCAINE 5% 1 PATCH TD SCH (21:07)
--- NOTE | 2022-08-19 23:27 | Hospitalist Progress Note ---
Date of Service August 19, 2022 Assessment & Plan (1) Falls: Plan: Weakness 82 y/o female with a history of dementia, prior CVA with residual hemiparesis, insulin-requiring DM2 who presented to the ED with worsening falls and progression of underling dementia. Suspect acute worsening of chronic issues with ambulatory dysfunction related to acute infection with influenza A. However, family notes increasing difficulty keeping patient safe at home and would like to consider potential longer term placement. CT head showed no hemorrhage, mass effect, or evidence of acute territorial ischemia CT chest showed no acute abnormalities, in particular no evidence of acute fracture or pneumonia/aspiration. CT cervical showed no evidence of fracture or subluxation involving the cervical spine. CT abd/pelvis showed no acute abnormality and in particular no evidence of acute fracture in this patient with right pelvic and hip pain. Continue PT/OT eval fall precaution waiting for placement (2) Influenza A: Plan: Pt is outside the window for Tamiflu. Continue supportive care. Continue Prednisone course Continue DuoNebs (3) UTI (urinary tract infection): Plan: urine cx grew gram negative bacilli Urine culture grew E. coli Currently on IV ceftriaxone Will transition to p.o. Keflex (4) DM type 2 (diabetes mellitus, type 2): Plan: Most recent HbA1c on 07/12/22 was 6.4. 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 board Continue monitor BS (5) HTN (hypertension): Plan: BP fluctuated Continue home BP meds (6) Dementia: Plan: Continue memantine and Donepezil, Carbidopa-levodopa Stable (7) Dyslipidemia: Plan: Continue statin (8) GERD (gastroesophageal reflux disease): Plan: Continue PPI Hx CVA Continue statin and plavix stable Plan Code Status: Full Code DVT Prophylaxis: SubQ heparin Admission and Anticipated Discharge Date Admission Date: August 16, 2022 Subjective Pt was seen and examined for follow up Sitting in chair with no acute distress with family member at bedside Patient said that she felt a lot better today Spoke to family member at bedside, provided with update and answered all the questions Denies any chest pain, palpitation, dizziness and SOB Review of Systems Review of Systems: All systems reviewed & are unremarkable except as noted in Subjective Physical Exam Physical Exam: General- No acute distress Head- atraumatic Eyes- PERRL, EOMI, ENT- oropharynx clear Neck- supple, no JVD Lungs-no wheezing Heart- regular rhythm; no murmur Abdomen- normal bowel sounds, soft, nontender Extremities- no calf tenderness Neuro- alert, oriented x 3; PERRL, EOMI; no facial palsy; no dysarthria Skin- warm & dry Results & Data Results & Data ([facility]) Vital Signs (Past 12 Hours) Vital Signs Temp Pulse Pulse Resp BP Pulse Ox O2 Del Method 08/19/22 23:21 36.3 C L 64 20 116/66 95 Room Air 08/19/22 19:38 36.6 C 75 20 128/69 94 Room Air 08/19/22 16:50 36.7 C 64 16 127/67 93 Room Air 08/19/22 15:21 94 08/19/22 15:00 66 08/19/22 12:14 36.9 C 72 16 160/72 H 92 Room Air
[2022-08-20] MEDS: guaiFENesin 200 MG TAB PO SCH ×4 (00:35→20:44)
[2022-08-20] MEDS: MEMANTINE HCL 10 MG TAB PO SCH ×2 (07:47→20:44)
[2022-08-20] MEDS: GABAPENTIN 300 MG CAP PO SCH ×3 (07:47→20:43)
[2022-08-20] MEDS: CARBIDOPA/LEVODOPA 25/100MG TAB PO SCH ×3 (07:47→20:44)
[2022-08-20] MEDS: HEPARIN SOD 5,000 UNIT/0.5 ML VIAL SQ SCH ×2 (07:47→20:42)
[2022-08-20] MEDS: LOSARTAN POTASSIUM 50 MG TAB PO SCH (07:48)
[2022-08-20] MEDS: ATORVASTATIN 10 MG TAB PO SCH (07:48)
[2022-08-20] MEDS: DONEPEZIL HCL 10 MG TAB PO SCH (07:48)
[2022-08-20] MEDS: PANTOprazole 40 MG TAB PO SCH (07:48)
[2022-08-20] MEDS: CLOPIDOGREL BISULFATE 75 MG TAB PO SCH (07:48)
[2022-08-20] MEDS: ESCITALOPRAM OXALATE 20 MG TAB PO SCH (07:49)
[2022-08-20] MEDS: predniSONE 20 MG TAB PO SCH (07:49)
[2022-08-20] MEDS: INSULIN ASPART PER UNIT SC SCH ×4 (08:20→20:45)
[2022-08-20] MEDS ORDERED: SODIUM CHLOR 7% 4 ML NEB NEB ONE (09:40)
[2022-08-20] MEDS: cefTRIAXone SODIUM 2,000 MG in DEXTROSE 5% 50 ML IV SCH (09:50)
--- NOTE | 2022-08-20 14:03 | Hospitalist Progress Note ---
Date of Service August 20, 2022 Assessment & Plan (1) Falls: Plan: Weakness 82 y/o female with a history of dementia, prior CVA with residual hemiparesis, insulin-requiring DM2 who presented to the ED with worsening falls and progression of underling dementia. Suspect acute worsening of chronic issues with ambulatory dysfunction related to acute infection with influenza A. However, family notes increasing difficulty keeping patient safe at home and would like to consider potential longer term placement. CT head showed no hemorrhage, mass effect, or evidence of acute territorial ischemia CT chest showed no acute abnormalities, in particular no evidence of acute fracture or pneumonia/aspiration. CT cervical showed no evidence of fracture or subluxation involving the cervical spine. CT abd/pelvis showed no acute abnormality and in particular no evidence of acute fracture in this patient with right pelvic and hip pain. Continue PT/OT eval Fall precaution waiting for placement to rehab (2) Influenza A: Plan: Pt is outside the window for Tamiflu. Continue supportive care. Continue Prednisone course, guaifenesin and hypertonic saline neb (3) UTI (urinary tract infection): Plan: urine cx grew gram negative bacilli Urine culture grew E. coli Currently on IV ceftriaxone Will transition to p.o. Keflex (4) DM type 2 (diabetes mellitus, type 2): Plan: Most recent HbA1c on 07/12/22 was 6.4. 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 Continue monitor BS (5) HTN (hypertension): Plan: BP fluctuated Continue home BP meds (6) Dementia: Plan: Continue memantine and Donepezil, Carbidopa-levodopa Stable (7) Dyslipidemia: Plan: Continue statin (8) GERD (gastroesophageal reflux disease): Plan: Continue PPI Hx CVA Continue statin and plavix stable Plan Code Status: Full Code DVT Prophylaxis: SubQ heparin Disposition Waiting for placement to rehab Admission and Anticipated Discharge Date Admission Date: August 16, 2022 Subjective Pt was seen and examined for follow up Sitting in chair with no acute distress watching TV Pt said that she feels OK, but she continues to cough Denies any chest pain, palpitation, dizziness and SOB Review of Systems Review of Systems: All systems reviewed & are unremarkable except as noted in Subjective Physical Exam Physical Exam: General- No acute distress Head- atraumatic Eyes- PERRL, EOMI, ENT- oropharynx clear Neck- supple, no JVD Lungs-no wheezing Heart- regular rhythm; no murmur Abdomen- normal bowel sounds, soft, nontender Extremities- no calf tenderness Neuro- alert, oriented x 3; PERRL, EOMI; no facial palsy; no dysarthria Skin- warm & dry Results & Data Results & Data ([facility]) Vital Signs (Past 12 Hours) Vital Signs Temp Pulse Resp BP Pulse Ox O2 Del Method O2 Flow Rate 08/20/22 11:52 36.5 C 63 20 120/65 95 Nasal Cannula 2 08/20/22 11:38 36.6 C 70 24 127/74 90 Room Air 08/20/22 10:00 68 18 Room Air 08/20/22 09:10 37.1 C 70 20 117/73 93 Nasal Cannula 2 08/20/22 08:00 Nasal Cannula 2 08/20/22 08:21 93 Nasal Cannula 2 08/20/22 08:01 36.8 C 81 16 143/65 H 90 Room Air 08/20/22 04:10 36.9 C 79 20 154/75 H 95 Room Air
[2022-08-20] MEDS: ACETAMINOPHEN 325 MG TAB PO PRN (15:31)
[2022-08-20] MEDS: LIDOCAINE 5% 1 PATCH TD SCH (20:42)
[2022-08-21] MEDS: guaiFENesin 200 MG TAB PO SCH ×4 (02:15→20:54)
[2022-08-21] MEDS: ATORVASTATIN 10 MG TAB PO SCH (08:50)
[2022-08-21] MEDS: CARBIDOPA/LEVODOPA 25/100MG TAB PO SCH ×3 (08:51→20:56)
[2022-08-21] MEDS: PANTOprazole 40 MG TAB PO SCH (08:51)
[2022-08-21] MEDS: predniSONE 20 MG TAB PO SCH (08:51)
[2022-08-21] MEDS: DONEPEZIL HCL 10 MG TAB PO SCH (08:51)
[2022-08-21] MEDS: GABAPENTIN 300 MG CAP PO SCH ×3 (08:51→20:56)
[2022-08-21] MEDS: LOSARTAN POTASSIUM 50 MG TAB PO SCH (08:51)
[2022-08-21] MEDS: HEPARIN SOD 5,000 UNIT/0.5 ML VIAL SQ SCH ×2 (08:51→20:54)
[2022-08-21] MEDS: CLOPIDOGREL BISULFATE 75 MG TAB PO SCH (08:51)
[2022-08-21] MEDS: ESCITALOPRAM OXALATE 20 MG TAB PO SCH (08:51)
[2022-08-21] MEDS: cephALEXin 500 MG CAP PO SCH ×2 (08:51→20:57)
[2022-08-21] MEDS: MEMANTINE HCL 10 MG TAB PO SCH ×2 (08:51→20:56)
[2022-08-21] MEDS: INSULIN ASPART PER UNIT SC SCH ×4 (08:53→20:58)
--- NOTE | 2022-08-21 19:47 | Hospitalist Progress Note ---
Date of Service August 21, 2022 Assessment & Plan (1) Falls: Plan: Weakness 82 y/o female with a history of dementia, prior CVA with residual hemiparesis, insulin-requiring DM2 who presented to the ED with worsening falls and progression of underling dementia. Suspect acute worsening of chronic issues with ambulatory dysfunction related to acute infection with influenza A. However, family notes increasing difficulty keeping patient safe at home and would like to consider potential longer term placement. CT head showed no hemorrhage, mass effect, or evidence of acute territorial ischemia CT chest showed no acute abnormalities, in particular no evidence of acute fracture or pneumonia/aspiration. CT cervical showed no evidence of fracture or subluxation involving the cervical spine. CT abd/pelvis showed no acute abnormality and in particular no evidence of acute fracture in this patient with right pelvic and hip pain. Continue PT/OT eval Fall precaution waiting for placement to rehab (2) Influenza A: Plan: Pt is outside the window for Tamiflu. Continue supportive care. Continue Prednisone course--will wean, guaifenesin and hypertonic saline neb (3) UTI (urinary tract infection): Plan: urine cx grew gram negative bacilli Urine culture grew E. coli Currently on IV ceftriaxone Will transition to p.o. Keflex (4) DM type 2 (diabetes mellitus, type 2): Plan: Most recent HbA1c on 07/12/22 was 6.4. 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 Continue monitor BS (5) HTN (hypertension): Plan: BP fluctuated Continue home BP meds (6) Dementia: Plan: Continue memantine and Donepezil, Carbidopa-levodopa Stable (7) Dyslipidemia: Plan: Continue statin (8) GERD (gastroesophageal reflux disease): Plan: Continue PPI Hx CVA Continue statin and plavix stable Plan Code Status: Full Code DVT Prophylaxis: SubQ heparin Disposition Waiting for placement to rehab Admission and Anticipated Discharge Date Admission Date: August 16, 2022 Subjective No issues overnight Waiting for placement Physical Exam Physical Exam: No acute distress, laying in bed, appears forgetful Respiratory: Breathing comfortably on room air, no wheezing/rhonchi/rales Cardiovascular: Regular rate and rhythm, no murmurs/rubs Gastrointestinal (Abdomen): Soft, non tender Musculoskeletal: No edema Neurologic: awake, spontaneously moving extremities, poor historian Results & Data Results & Data ([facility]) Vital Signs (Past 12 Hours) Vital Signs Temp Pulse Pulse Resp BP BP Pulse Ox 08/21/22 19:13 36.4 C L 63 19 145/73 H 93 08/21/22 15:14 36.8 C 59 L 20 149/90 H 93 08/21/22 15:00 62 08/21/22 12:05 96 08/21/22 11:39 36.5 C 71 20 148/84 H 92 08/21/22 08:14 59 L 08/21/22 08:06 36.5 C 64 20 132/64 92 O2 Del Method 08/21/22 19:13 Room Air 08/21/22 15:14 Room Air 08/21/22 15:00 08/21/22 12:05 Room Air 08/21/22 11:39 Room Air 08/21/22 08:14 08/21/22 08:06 Room Air
[2022-08-21] MEDS: LIDOCAINE 5% 1 PATCH TD SCH (20:55)
[2022-08-22] MEDS: guaiFENesin 200 MG TAB PO SCH ×4 (02:25→21:08)
[2022-08-22] MEDS: ATORVASTATIN 10 MG TAB PO SCH (08:27)
[2022-08-22] MEDS: CARBIDOPA/LEVODOPA 25/100MG TAB PO SCH ×3 (08:27→21:29)
[2022-08-22] MEDS: cephALEXin 500 MG CAP PO SCH ×2 (08:28→21:29)
[2022-08-22] MEDS: GABAPENTIN 300 MG CAP PO SCH ×3 (08:28→21:25)
[2022-08-22] MEDS: CLOPIDOGREL BISULFATE 75 MG TAB PO SCH (08:28)
[2022-08-22] MEDS: DONEPEZIL HCL 10 MG TAB PO SCH (08:28)
[2022-08-22] MEDS: LOSARTAN POTASSIUM 50 MG TAB PO SCH (08:29)
[2022-08-22] MEDS: ESCITALOPRAM OXALATE 20 MG TAB PO SCH (08:29)
[2022-08-22] MEDS: HEPARIN SOD 5,000 UNIT/0.5 ML VIAL SQ SCH ×2 (08:29→21:09)
[2022-08-22] MEDS: MEMANTINE HCL 10 MG TAB PO SCH ×2 (08:29→21:24)
[2022-08-22] MEDS: PANTOprazole 40 MG TAB PO SCH (08:30)
[2022-08-22] MEDS: predniSONE 10 MG TABLET PO SCH (08:30)
[2022-08-22] MEDS: INSULIN ASPART PER UNIT SC SCH ×4 (08:33→21:07)
--- NOTE | 2022-08-22 13:27 | Hospitalist Progress Note ---
Date of Service August 22, 2022 Assessment & Plan (1) Falls: Plan: Weakness 82 y/o female with a history of dementia, prior CVA with residual hemiparesis, insulin-requiring DM2 who presented to the ED with worsening falls and progression of underling dementia. Suspect acute worsening of chronic issues with ambulatory dysfunction related to acute infection with influenza A. However, family notes increasing difficulty keeping patient safe at home and would like to consider potential longer term placement. CT head showed no hemorrhage, mass effect, or evidence of acute territorial ischemia CT chest showed no acute abnormalities, in particular no evidence of acute fracture or pneumonia/aspiration. CT cervical showed no evidence of fracture or subluxation involving the cervical spine. CT abd/pelvis showed no acute abnormality and in particular no evidence of acute fracture in this patient with right pelvic and hip pain. Continue PT/OT Fall precaution waiting for placement to rehab (2) Influenza A: Plan: Pt is outside the window for Tamiflu. Continue supportive care. Continue Prednisone course--will wean, guaifenesin and hypertonic saline neb (3) UTI (urinary tract infection): Plan: urine cx grew gram negative bacilli Urine culture grew E. coli IV ceftriaxone transitioned to p.o. Keflex (4) DM type 2 (diabetes mellitus, type 2): Plan: Most recent HbA1c on 07/12/22 was 6.4. 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 No new complaints. Waiting for placement Physical Exam Physical Exam: Laying in bed, no acute distress, pleasant and comfortable Respiratory: breathing comfortably on room air, wet cough, no wheez ing/rhonchi/rales Cardiovascular: Regular rate and rhythm, no murmurs/rubs/gallops Gastrointestinal (Abdomen): Soft, non tender Musculoskeletal: No edema, no cyanosis or clubbing Neurologic: awake, spontaneously moving extremities, pleasantly demented Results & Data Results & Data ([facility]) Vital Signs (Past 12 Hours) Vital Signs Temp Pulse Pulse Resp BP BP Pulse Ox 08/22/22 11:42 36.4 C L 65 18 171/79 H 93 08/22/22 07:49 36.4 C L 60 18 131/67 92 08/22/22 04:12 36.5 C 69 18 169/91 H 97 08/22/22 01:26 57 L O2 Del Method 08/22/22 11:42 Room Air 08/22/22 07:49 Room Air 08/22/22 04:12 Room Air 08/22/22 01:26
[2022-08-22] MEDS: LIDOCAINE 5% 1 PATCH TD SCH (21:09)
[2022-08-23] MEDS: guaiFENesin 200 MG TAB PO SCH ×4 (02:16→18:20)
[2022-08-23] MEDS: PANTOprazole 40 MG TAB PO SCH (08:21)
[2022-08-23] MEDS: GABAPENTIN 300 MG CAP PO SCH ×3 (08:21→20:57)
[2022-08-23] MEDS: ATORVASTATIN 10 MG TAB PO SCH (08:21)
[2022-08-23] MEDS: CLOPIDOGREL BISULFATE 75 MG TAB PO SCH (08:21)
[2022-08-23] MEDS: CARBIDOPA/LEVODOPA 25/100MG TAB PO SCH ×3 (08:21→20:57)
[2022-08-23] MEDS: MEMANTINE HCL 10 MG TAB PO SCH ×2 (08:22→20:56)
[2022-08-23] MEDS: predniSONE 10 MG TABLET PO SCH (08:22)
[2022-08-23] MEDS: ESCITALOPRAM OXALATE 20 MG TAB PO SCH (08:22)
[2022-08-23] MEDS: LOSARTAN POTASSIUM 50 MG TAB PO SCH (08:22)
[2022-08-23] MEDS: DONEPEZIL HCL 10 MG TAB PO SCH (08:23)
[2022-08-23] MEDS: HEPARIN SOD 5,000 UNIT/0.5 ML VIAL SQ SCH ×2 (08:24→20:56)
[2022-08-23] MEDS: INSULIN ASPART PER UNIT SC SCH ×4 (08:25→21:06)
[2022-08-23] MEDS: POLYETHYLENE (MIRALAX) 17 GM PACK PO SCH (12:41)
[2022-08-23] MEDS: ACETAMINOPHEN 325 MG TAB PO PRN (15:06)
--- NOTE | 2022-08-23 19:21 | Hospitalist Progress Note ---
Date of Service August 23, 2022 Assessment & Plan (1) Falls: Plan: Weakness 82 y/o female with a history of dementia, prior CVA with residual hemiparesis, insulin-requiring DM2 who presented to the ED with worsening falls and progression of underling dementia. Suspect acute worsening of chronic issues with ambulatory dysfunction related to acute infection with influenza A. However, family notes increasing difficulty keeping patient safe at home and would like to consider potential longer term placement. CT head showed no hemorrhage, mass effect, or evidence of acute territorial ischemia CT chest showed no acute abnormalities, in particular no evidence of acute fracture or pneumonia/aspiration. CT cervical showed no evidence of fracture or subluxation involving the cervical spine. CT abd/pelvis showed no acute abnormality and in particular no evidence of acute fracture in this patient with right pelvic and hip pain. Continue PT/OT Fall precaution waiting for placement to rehab (2) Influenza A: Plan: Pt is outside the window for Tamiflu. Continue supportive care. Continue Prednisone course--will wean, guaifenesin and hypertonic saline neb (3) UTI (urinary tract infection): Plan: urine cx grew gram negative bacilli Urine culture grew E. coli IV ceftriaxone transitioned to p.o. Keflex (4) DM type 2 (diabetes mellitus, type 2): Plan: Most recent HbA1c on 07/12/22 was 6.4. 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 Tolerating diet. No BM in past couple days Physical Exam Physical Exam: Appears well, no acute distress, non toxic Respiratory: Breathing comfortably, wet cough at times, no wheezing Cardiovascular: regular rate and rhythm, no murmurs/rubs/gallops Gastrointestinal (Abdomen): soft, non tender Musculoskeletal: No edema Neurologic: awake, alert, spontaneously moving extremities Results & Data Results & Data ([facility]) Vital Signs (Past 12 Hours) Vital Signs Temp Pulse Resp BP Pulse Ox O2 Del Method O2 Flow Rate 08/23/22 15:00 36.5 C 60 16 106/65 97 Nasal Cannula 2 08/23/22 13:05 97 08/23/22 07:30 Oxymask 2
[2022-08-23] MEDS: LIDOCAINE 5% 1 PATCH TD SCH (20:58)
[2022-08-24] MEDS: guaiFENesin 200 MG TAB PO SCH ×4 (04:18→17:43)
[2022-08-24] MEDS: MEMANTINE HCL 10 MG TAB PO SCH ×2 (08:14→21:32)
[2022-08-24] MEDS: LOSARTAN POTASSIUM 50 MG TAB PO SCH (08:15)
[2022-08-24] MEDS: CLOPIDOGREL BISULFATE 75 MG TAB PO SCH (08:15)
[2022-08-24] MEDS: CARBIDOPA/LEVODOPA 25/100MG TAB PO SCH ×3 (08:15→21:32)
[2022-08-24] MEDS: ATORVASTATIN 10 MG TAB PO SCH (08:15)
[2022-08-24] MEDS: GABAPENTIN 300 MG CAP PO SCH ×3 (08:15→21:32)
[2022-08-24] MEDS: ESCITALOPRAM OXALATE 20 MG TAB PO SCH (08:15)
[2022-08-24] MEDS: DONEPEZIL HCL 10 MG TAB PO SCH (08:15)
[2022-08-24] MEDS: PANTOprazole 40 MG TAB PO SCH (08:16)
[2022-08-24] MEDS: predniSONE 10 MG TABLET PO SCH (08:16)
[2022-08-24] MEDS: HEPARIN SOD 5,000 UNIT/0.5 ML VIAL SQ SCH ×2 (08:18→21:33)
[2022-08-24] MEDS: POLYETHYLENE (MIRALAX) 17 GM PACK PO SCH (08:19)
[2022-08-24] MEDS: INSULIN ASPART PER UNIT SC SCH ×4 (08:38→21:33)
--- NOTE | 2022-08-24 20:29 | Hospitalist Progress Note ---
Date of Service August 24, 2022 Assessment & Plan (1) Falls: Plan: Weakness 82 y/o female with a history of dementia, prior CVA with residual hemiparesis, insulin-requiring DM2 who presented to the ED with worsening falls and progression of underling dementia. Suspect acute worsening of chronic issues with ambulatory dysfunction related to acute infection with influenza A. However, family notes increasing difficulty keeping patient safe at home and would like to consider potential longer term placement. CT head showed no hemorrhage, mass effect, or evidence of acute territorial ischemia CT chest showed no acute abnormalities, in particular no evidence of acute fracture or pneumonia/aspiration. CT cervical showed no evidence of fracture or subluxation involving the cervical spine. CT abd/pelvis showed no acute abnormality and in particular no evidence of acute fracture in this patient with right pelvic and hip pain. Continue PT/OT Fall precaution waiting for placement to rehab (2) Influenza A: Plan: Pt is outside the window for Tamiflu. Continue supportive care. Continue Prednisone course--will wean, guaifenesin and hypertonic saline neb (3) UTI (urinary tract infection): Plan: urine cx grew gram negative bacilli Urine culture grew E. coli IV ceftriaxone transitioned to p.o. Keflex (4) DM type 2 (diabetes mellitus, type 2): Plan: Most recent HbA1c on 07/12/22 was 6.4. 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 No complaints today. Waiting for placement Physical Exam Physical Exam: Sleeping comfortably, easily arousable Respiratory: breathing comfortably on room air, no wheezing, no rhonchi, non productive cough Cardiovascular: regular rate and rhythm, no murmurs/rubs/gallops Gastrointestinal (Abdomen): soft, non tender Musculoskeletal: No edema Neurologic: awake, alert, spontaneously moving extremities Results & Data Results & Data ([facility]) Vital Signs (Past 12 Hours) Vital Signs Temp Pulse Resp BP Pulse Ox O2 Del Method O2 Flow Rate 08/24/22 14:38 36.5 C 63 18 134/70 98 Nasal Cannula 2
[2022-08-24] MEDS: LIDOCAINE 5% 1 PATCH TD SCH (21:31)
[2022-08-25] MEDS: guaiFENesin 200 MG TAB PO SCH ×4 (01:41→22:42)
[2022-08-25] MEDS: MEMANTINE HCL 10 MG TAB PO SCH ×2 (07:26→20:27)
[2022-08-25] MEDS: CARBIDOPA/LEVODOPA 25/100MG TAB PO SCH ×3 (07:26→20:27)
[2022-08-25] MEDS: DONEPEZIL HCL 10 MG TAB PO SCH (07:27)
[2022-08-25] MEDS: GABAPENTIN 300 MG CAP PO SCH ×3 (07:27→20:27)
[2022-08-25] MEDS: HEPARIN SOD 5,000 UNIT/0.5 ML VIAL SQ SCH ×2 (07:27→20:21)
[2022-08-25] MEDS: ESCITALOPRAM OXALATE 20 MG TAB PO SCH (07:27)
[2022-08-25] MEDS: PANTOprazole 40 MG TAB PO SCH (07:27)
[2022-08-25] MEDS: CLOPIDOGREL BISULFATE 75 MG TAB PO SCH (07:27)
[2022-08-25] MEDS: POLYETHYLENE (MIRALAX) 17 GM PACK PO SCH (07:28)
[2022-08-25] MEDS: LOSARTAN POTASSIUM 50 MG TAB PO SCH (07:28)
[2022-08-25] MEDS: ATORVASTATIN 10 MG TAB PO SCH (07:30)
[2022-08-25] MEDS: INSULIN ASPART PER UNIT SC SCH ×4 (08:32→22:02)
--- NOTE | 2022-08-25 19:02 | Hospitalist Progress Note ---
Date of Service August 25, 2022 Assessment & Plan (1) Falls: Plan: Weakness 82 y/o female with a history of dementia, prior CVA with residual hemiparesis, insulin-requiring DM2 who presented to the ED with worsening falls and progression of underling dementia. Suspect acute worsening of chronic issues with ambulatory dysfunction related to acute infection with influenza A. However, family notes increasing difficulty keeping patient safe at home and would like to consider potential longer term placement. CT head showed no hemorrhage, mass effect, or evidence of acute territorial ischemia CT chest showed no acute abnormalities, in particular no evidence of acute fracture or pneumonia/aspiration. CT cervical showed no evidence of fracture or subluxation involving the cervical spine. CT abd/pelvis showed no acute abnormality and in particular no evidence of acute fracture in this patient with right pelvic and hip pain. Continue PT/OT Fall precaution waiting for placement to rehab (2) Influenza A: Plan: Pt is outside the window for Tamiflu. Continue supportive care. Continue Prednisone course--will wean off, guaifenesin and hypertonic saline neb (3) UTI (urinary tract infection): Plan: urine cx grew gram negative bacilli Urine culture grew E. coli Completed the course of the abx (4) DM type 2 (diabetes mellitus, type 2): Plan: Most recent HbA1c on 07/12/22 was 6.4. 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 Continue monitor BS (5) HTN (hypertension): Plan: BP fluctuated Continue home BP meds (6) Dementia: Plan: Continue memantine and Donepezil, Carbidopa-levodopa Stable (7) Dyslipidemia: Plan: Continue statin (8) GERD (gastroesophageal reflux disease): Plan: Continue PPI Hx CVA Continue statin and plavix stable Plan Code Status: Full Code DVT Prophylaxis: SubQ heparin Disposition Waiting for placement to rehab Admission and Anticipated Discharge Date Admission Date: August 16, 2022 Subjective Patient was seen and evaluated for follow-up Lying in bed with no acute distress Her breathing is much better today Review of Systems Review of Systems: All systems reviewed & are unremarkable except as noted in Subjective Physical Exam Physical Exam: General- No acute distress Head- atraumatic Eyes- PERRL, EOMI, ENT- oropharynx clear Neck- supple, no JVD Lungs-no wheezing Heart- regular rhythm; no murmur Abdomen- normal bowel sounds, soft, nontender Extremities- no calf tenderness Neuro- alert, oriented x 3; PERRL, EOMI; no facial palsy; no dysarthria Skin- warm & dry Results & Data Results & Data ([facility]) Vital Signs (Past 12 Hours) Vital Signs Temp Pulse Resp BP Pulse Ox O2 Del Method O2 Flow Rate 08/25/22 17:07 Nasal Cannula 2 08/25/22 14:42 36.5 C 52 L 18 110/65 99 Nasal Cannula 2 08/25/22 08:14 36.3 C L 60 20 134/71 94 Nasal Cannula 2 08/25/22 07:58 Nasal Cannula 2
[2022-08-25] MEDS: LIDOCAINE 5% 1 PATCH TD SCH (20:20)
[2022-08-25] MEDS: ACETAMINOPHEN 325 MG TAB PO PRN (20:26)
[2022-08-26] MEDS: guaiFENesin 200 MG TAB PO SCH ×4 (05:34→19:52)
[2022-08-26] MEDS: MEMANTINE HCL 10 MG TAB PO SCH ×2 (07:39→19:52)
[2022-08-26] MEDS: GABAPENTIN 300 MG CAP PO SCH ×3 (07:40→19:52)
[2022-08-26] MEDS: CARBIDOPA/LEVODOPA 25/100MG TAB PO SCH ×3 (07:40→19:52)
[2022-08-26] MEDS: LOSARTAN POTASSIUM 50 MG TAB PO SCH (07:40)
[2022-08-26] MEDS: DONEPEZIL HCL 10 MG TAB PO SCH (07:40)
[2022-08-26] MEDS: PANTOprazole 40 MG TAB PO SCH (07:40)
[2022-08-26] MEDS: CLOPIDOGREL BISULFATE 75 MG TAB PO SCH (07:41)
[2022-08-26] MEDS: ATORVASTATIN 10 MG TAB PO SCH (07:41)
[2022-08-26] MEDS: POLYETHYLENE (MIRALAX) 17 GM PACK PO SCH (07:42)
[2022-08-26] MEDS: HEPARIN SOD 5,000 UNIT/0.5 ML VIAL SQ SCH ×2 (07:50→19:52)
[2022-08-26] MEDS: ESCITALOPRAM OXALATE 20 MG TAB PO SCH (07:59)
[2022-08-26] MEDS: INSULIN ASPART PER UNIT SC SCH ×4 (08:39→22:03)
[2022-08-26] MEDS: LIDOCAINE 5% 1 PATCH TD SCH (19:53)
[2022-08-27] MEDS: guaiFENesin 200 MG TAB PO SCH ×4 (02:52→19:45)
[2022-08-27] MEDS: INSULIN ASPART PER UNIT SC SCH ×4 (08:42→21:55)
[2022-08-27] MEDS: ATORVASTATIN 10 MG TAB PO SCH (08:43)
[2022-08-27] MEDS: CARBIDOPA/LEVODOPA 25/100MG TAB PO SCH ×3 (08:46→22:00)
[2022-08-27] MEDS: CLOPIDOGREL BISULFATE 75 MG TAB PO SCH (08:46)
[2022-08-27] MEDS: DONEPEZIL HCL 10 MG TAB PO SCH (08:49)
[2022-08-27] MEDS: ESCITALOPRAM OXALATE 20 MG TAB PO SCH (08:49)
[2022-08-27] MEDS: LOSARTAN POTASSIUM 50 MG TAB PO SCH (08:50)
[2022-08-27] MEDS: GABAPENTIN 300 MG CAP PO SCH ×3 (08:50→22:00)
[2022-08-27] MEDS: PANTOprazole 40 MG TAB PO SCH (08:51)
[2022-08-27] MEDS: MEMANTINE HCL 10 MG TAB PO SCH ×2 (08:51→21:55)
[2022-08-27] MEDS: POLYETHYLENE (MIRALAX) 17 GM PACK PO SCH (08:52)
[2022-08-27] MEDS: HEPARIN SOD 5,000 UNIT/0.5 ML VIAL SQ SCH ×2 (08:52→22:00)
[2022-08-27] MEDS: ACETAMINOPHEN 325 MG TAB PO PRN (12:08)
--- NOTE | 2022-08-27 17:45 | Hospitalist Progress Note ---
Date of Service August 26, 2022 Assessment & Plan (1) Falls: Plan: Weakness 82 y/o female with a history of dementia, prior CVA with residual hemiparesis, insulin-requiring DM2 who presented to the ED with worsening falls and progression of underling dementia. Suspect acute worsening of chronic issues with ambulatory dysfunction related to acute infection with influenza A. However, family notes increasing difficulty keeping patient safe at home and would like to consider potential longer term placement. CT head showed no hemorrhage, mass effect, or evidence of acute territorial ischemia CT chest showed no acute abnormalities, in particular no evidence of acute fracture or pneumonia/aspiration. CT cervical showed no evidence of fracture or subluxation involving the cervical spine. CT abd/pelvis showed no acute abnormality and in particular no evidence of acute fracture in this patient with right pelvic and hip pain. Continue PT/OT Fall precaution waiting for placement to rehab (2) Influenza A: Plan: Pt is outside the window for Tamiflu. Continue supportive care. Continue Prednisone course--will wean off, guaifenesin and hypertonic saline neb (3) UTI (urinary tract infection): Plan: urine cx grew gram negative bacilli Urine culture grew E. coli Completed the course of the abx (4) DM type 2 (diabetes mellitus, type 2): Plan: Most recent HbA1c on 07/12/22 was 6.4. 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 educator on board Continue monitor BS (5) HTN (hypertension): Plan: BP fluctuated Continue home BP meds (6) Dementia: Plan: Continue memantine and Donepezil, Carbidopa-levodopa Stable (7) Dyslipidemia: Plan: Continue statin (8) GERD (gastroesophageal reflux disease): Plan: Continue PPI Hx CVA Continue statin and plavix stable Plan Code Status: Full Code DVT Prophylaxis: SubQ heparin Disposition Waiting for placement to rehab Admission and Anticipated Discharge Date Admission Date: August 16, 2022 Subjective Patient was seen and evaluated for follow-up Lying in bed with no acute distress Denies any new complaint Physical Exam Physical Exam: General- No acute distress Head- atraumatic Eyes- PERRL, EOMI, ENT- oropharynx clear Neck- supple, no JVD Lungs-no wheezing Heart- regular rhythm; no murmur Abdomen- normal bowel sounds, soft, nontender Extremities- no calf tenderness Neuro- alert, oriented x 3; PERRL, EOMI; no facial palsy; no dysarthria Skin- warm & dry Results & Data Results & Data ([facility]) Vital Signs (Past 12 Hours) Vital Signs Temp Pulse Resp BP Pulse Ox O2 Del Method O2 Flow Rate 08/27/22 15:42 36.4 C L 64 18 111/66 96 Room Air 08/27/22 07:52 Nasal Cannula 1 08/27/22 07:33 36.2 C L 61 18 118/69 96 Room Air
--- NOTE | 2022-08-27 17:45 | Hospitalist Progress Note ---
Date of Service August 27, 2022 Assessment & Plan (1) Falls: Plan: Weakness 82 y/o female with a history of dementia, prior CVA with residual hemiparesis, insulin-requiring DM2 who presented to the ED with worsening falls and progression of underling dementia. Suspect acute worsening of chronic issues with ambulatory dysfunction related to acute infection with influenza A. However, family notes increasing difficulty keeping patient safe at home and would like to consider potential longer term placement. CT head showed no hemorrhage, mass effect, or evidence of acute territorial ischemia CT chest showed no acute abnormalities, in particular no evidence of acute fracture or pneumonia/aspiration. CT cervical showed no evidence of fracture or subluxation involving the cervical spine. CT abd/pelvis showed no acute abnormality and in particular no evidence of acute fracture in this patient with right pelvic and hip pain. Continue PT/OT Fall precaution waiting for placement to rehab (2) Influenza A: Plan: Pt is outside the window for Tamiflu. Continue supportive care. Continue Prednisone course--will wean off, guaifenesin and hypertonic saline neb (3) UTI (urinary tract infection): Plan: urine cx grew gram negative bacilli Urine culture grew E. coli Completed the course of the abx (4) DM type 2 (diabetes mellitus, type 2): Plan: Most recent HbA1c on 07/12/22 was 6.4. 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 Continue monitor BS (5) HTN (hypertension): Plan: BP fluctuated Continue home BP meds (6) Dementia: Plan: Continue memantine and Donepezil, Carbidopa-levodopa Stable (7) Dyslipidemia: Plan: Continue statin (8) GERD (gastroesophageal reflux disease): Plan: Continue PPI Hx CVA Continue statin and plavix stable Plan Code Status: Full Code DVT Prophylaxis: SubQ heparin Disposition Waiting for placement to rehab Admission and Anticipated Discharge Date Admission Date: August 16, 2022 Subjective Patient was seen and evaluated for follow-up Lying in bed with no acute distress Her breathing is much better Waiting for placement to rehab Review of Systems Review of Systems: All systems reviewed & are unremarkable except as noted in Subjective Physical Exam Physical Exam: General- No acute distress Head- atraumatic Eyes- PERRL, EOMI, ENT- oropharynx clear Neck- supple, no JVD Lungs-no wheezing Heart- regular rhythm; no murmur Abdomen- normal bowel sounds, soft, nontender Extremities- no calf tenderness Neuro- alert, oriented x 3; PERRL, EOMI; no facial palsy; no dysarthria Skin- warm & dry Results & Data Results & Data ([facility]) Vital Signs (Past 12 Hours) Vital Signs Temp Pulse Resp BP Pulse Ox O2 Del Method O2 Flow Rate 08/27/22 15:42 36.4 C L 64 18 111/66 96 Room Air 08/27/22 07:52 Nasal Cannula 1 08/27/22 07:33 36.2 C L 61 18 118/69 96 Room Air
[2022-08-27] MEDS: LIDOCAINE 5% 1 PATCH TD SCH (22:00)
[2022-08-28] MEDS: guaiFENesin 200 MG TAB PO SCH ×4 (02:15→18:21)
[2022-08-28 02:42] LABS: Appearance Urine Clear (Clear); Bilirubin Urine Negative (Negative); Blood Urine Negative (Negative); Color Urine Yellow; Glucose Urine UA Negative (Negative); Ketones Urine Negative (Negative); Leukocyte Esterase Urine Negative (Negative); Nitrite Urine Negative (Negative); Protein Urine Negative (Negative); Specific Gravity Urine 1.008 (1.000-1.030); Urobilinogen Urine Negative (Negative)
[2022-08-28] MEDS: ACETAMINOPHEN 325 MG TAB PO PRN (08:22)
[2022-08-28] MEDS: CARBIDOPA/LEVODOPA 25/100MG TAB PO SCH ×3 (08:26→20:01)
[2022-08-28] MEDS: CLOPIDOGREL BISULFATE 75 MG TAB PO SCH (08:26)
[2022-08-28] MEDS: ESCITALOPRAM OXALATE 20 MG TAB PO SCH (08:26)
[2022-08-28] MEDS: ATORVASTATIN 10 MG TAB PO SCH (08:26)
[2022-08-28] MEDS: DONEPEZIL HCL 10 MG TAB PO SCH (08:26)
[2022-08-28] MEDS: POLYETHYLENE (MIRALAX) 17 GM PACK PO SCH (08:26)
[2022-08-28] MEDS: GABAPENTIN 300 MG CAP PO SCH ×3 (08:27→20:02)
[2022-08-28] MEDS: HEPARIN SOD 5,000 UNIT/0.5 ML VIAL SQ SCH ×2 (08:27→20:02)
[2022-08-28] MEDS: LOSARTAN POTASSIUM 50 MG TAB PO SCH (08:27)
[2022-08-28] MEDS: PANTOprazole 40 MG TAB PO SCH (08:27)
[2022-08-28] MEDS: MEMANTINE HCL 10 MG TAB PO SCH ×2 (08:27→20:03)
[2022-08-28] MEDS: INSULIN ASPART PER UNIT SC SCH ×4 (08:33→21:35)
--- NOTE | 2022-08-28 17:20 | Hospitalist Progress Note ---
Date of Service August 28, 2022 Assessment & Plan (1) Falls: Plan: Weakness 82 y/o female with a history of dementia, prior CVA with residual hemiparesis, insulin-requiring DM2 who presented to the ED with worsening falls and progression of underling dementia. Suspect acute worsening of chronic issues with ambulatory dysfunction related to acute infection with influenza A. However, family notes increasing difficulty keeping patient safe at home and would like to consider potential longer term placement. CT head showed no hemorrhage, mass effect, or evidence of acute territorial ischemia CT chest showed no acute abnormalities, in particular no evidence of acute fracture or pneumonia/aspiration. CT cervical showed no evidence of fracture or subluxation involving the cervical spine. CT abd/pelvis showed no acute abnormality and in particular no evidence of acute fracture in this patient with right pelvic and hip pain. Continue PT/OT Fall precaution waiting for placement to rehab (2) Influenza A: Plan: Pt is outside the window for Tamiflu. Continue supportive care. Continue Prednisone course--will wean off, guaifenesin and hypertonic saline neb (3) UTI (urinary tract infection): Plan: urine cx grew gram negative bacilli Urine culture grew E. coli Completed the course of the abx (4) DM type 2 (diabetes mellitus, type 2): Plan: Most recent HbA1c on 07/12/22 was 6.4. 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 Continue monitor BS (5) HTN (hypertension): Plan: BP fluctuated Continue home BP meds (6) Dementia: Plan: Continue memantine and Donepezil, Carbidopa-levodopa Stable (7) Dyslipidemia: Plan: Continue statin (8) GERD (gastroesophageal reflux disease): Plan: Continue PPI Hx CVA Continue statin and plavix stable Plan Code Status: Full Code DVT Prophylaxis: SubQ heparin Disposition Waiting for placement to rehab Admission and Anticipated Discharge Date Admission Date: August 16, 2022 Subjective Patient was seen and evaluated for follow-up Sitting in chair with no acute distress eating her meal She was wean off oxygen Waiting for placement to rehab Review of Systems Review of Systems: All systems reviewed & are unremarkable except as noted in Subjective Physical Exam Physical Exam: General- No acute distress Head- atraumatic Eyes- PERRL, EOMI, ENT- oropharynx clear Neck- supple, no JVD Lungs-no wheezing Heart- regular rhythm; no murmur Abdomen- normal bowel sounds, soft, nontender Extremities- no calf tenderness Neuro- alert, oriented x 3; PERRL, EOMI; no facial palsy; no dysarthria Skin- warm & dry Results & Data Results & Data ([facility]) Vital Signs (Past 12 Hours) Vital Signs Temp Pulse Resp BP Pulse Ox O2 Del Method 08/28/22 15:54 36.3 C L 65 18 137/74 95 Room Air 08/28/22 07:55 Room Air 08/28/22 06:57 36.7 C 81 18 113/67 93 Room Air
[2022-08-28] MEDS: LIDOCAINE 5% 1 PATCH TD SCH (20:02)
[2022-08-29] MEDS: guaiFENesin 200 MG TAB PO SCH ×4 (02:15→19:45)
[2022-08-29] MEDS: POLYETHYLENE (MIRALAX) 17 GM PACK PO SCH (08:36)
[2022-08-29] MEDS: ATORVASTATIN 10 MG TAB PO SCH (08:36)
[2022-08-29] MEDS: ESCITALOPRAM OXALATE 20 MG TAB PO SCH (08:37)
[2022-08-29] MEDS: GABAPENTIN 300 MG CAP PO SCH ×3 (08:37→20:40)
[2022-08-29] MEDS: DONEPEZIL HCL 10 MG TAB PO SCH (08:37)
[2022-08-29] MEDS: CARBIDOPA/LEVODOPA 25/100MG TAB PO SCH ×3 (08:37→20:40)
[2022-08-29] MEDS: CLOPIDOGREL BISULFATE 75 MG TAB PO SCH (08:37)
[2022-08-29] MEDS: HEPARIN SOD 5,000 UNIT/0.5 ML VIAL SQ SCH ×2 (08:38→20:40)
[2022-08-29] MEDS: MEMANTINE HCL 10 MG TAB PO SCH ×2 (08:38→20:41)
[2022-08-29] MEDS: LOSARTAN POTASSIUM 50 MG TAB PO SCH (08:38)
[2022-08-29] MEDS: PANTOprazole 40 MG TAB PO SCH (08:38)
[2022-08-29] MEDS: INSULIN ASPART PER UNIT SC SCH ×4 (08:39→21:55)
--- NOTE | 2022-08-29 18:21 | Hospitalist Progress Note ---
Date of Service August 29, 2022 Assessment & Plan (1) Falls: Plan: Weakness 82 y/o female with a history of dementia, prior CVA with residual hemiparesis, insulin-requiring DM2 who presented to the ED with worsening falls and progression of underling dementia. Suspect acute worsening of chronic issues with ambulatory dysfunction related to acute infection with influenza A. However, family notes increasing difficulty keeping patient safe at home and would like to consider potential longer term placement. CT head showed no hemorrhage, mass effect, or evidence of acute territorial ischemia CT chest showed no acute abnormalities, in particular no evidence of acute fracture or pneumonia/aspiration. CT cervical showed no evidence of fracture or subluxation involving the cervical spine. CT abd/pelvis showed no acute abnormality and in particular no evidence of acute fracture in this patient with right pelvic and hip pain. Continue PT/OT Fall precaution waiting for placement to rehab (2) Influenza A: Plan: Pt is outside the window for Tamiflu. Continue supportive care. Continue Prednisone course--will wean off, guaifenesin and hypertonic saline neb (3) UTI (urinary tract infection): Plan: urine cx grew gram negative bacilli Urine culture grew E. coli Completed the course of the abx (4) DM type 2 (diabetes mellitus, type 2): Plan: Most recent HbA1c on 07/12/22 was 6.4. 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 Continue monitor BS (5) HTN (hypertension): Plan: BP fluctuated Continue home BP meds (6) Dementia: Plan: Continue memantine and Donepezil, Carbidopa-levodopa Stable (7) Dyslipidemia: Plan: Continue statin (8) GERD (gastroesophageal reflux disease): Plan: Continue PPI Hx CVA Continue statin and plavix stable Plan Code Status: Full Code DVT Prophylaxis: SubQ heparin Disposition Waiting for placement to rehab Admission and Anticipated Discharge Date Admission Date: August 16, 2022 Subjective Patient was seen and evaluated for follow-up Sitting in chair with no acute distress eating her meal Waiting for placement to rehab Review of Systems Review of Systems: All systems reviewed & are unremarkable except as noted in Subjective Physical Exam Physical Exam: General- No acute distress Head- atraumatic Eyes- PERRL, EOMI, ENT- oropharynx clear Neck- supple, no JVD Lungs-no wheezing Heart- regular rhythm; no murmur Abdomen- normal bowel sounds, soft, nontender Extremities- no calf tenderness Neuro- alert, oriented x 3; PERRL, EOMI; no facial palsy; no dysarthria Skin- warm & dry Results & Data Results & Data ([facility]) Vital Signs (Past 12 Hours) Vital Signs Temp Pulse Resp BP BP Pulse Ox O2 Del Method 08/29/22 15:40 37.0 C 72 18 97/60 L 96 Room Air 08/29/22 07:30 Room Air 08/29/22 07:14 36.6 C 89 18 123/66 96 Room Air
[2022-08-29] MEDS: LIDOCAINE 5% 1 PATCH TD SCH (20:41)
[2022-08-30] MEDS: guaiFENesin 200 MG TAB PO SCH ×4 (01:25→19:45)
[2022-08-30] MEDS: POLYETHYLENE (MIRALAX) 17 GM PACK PO SCH (08:31)
[2022-08-30] MEDS: CLOPIDOGREL BISULFATE 75 MG TAB PO SCH (08:32)
[2022-08-30] MEDS: CARBIDOPA/LEVODOPA 25/100MG TAB PO SCH ×3 (08:32→21:00)
[2022-08-30] MEDS: ATORVASTATIN 10 MG TAB PO SCH (08:32)
[2022-08-30] MEDS: ESCITALOPRAM OXALATE 20 MG TAB PO SCH (08:32)
[2022-08-30] MEDS: DONEPEZIL HCL 10 MG TAB PO SCH (08:32)
[2022-08-30] MEDS: GABAPENTIN 300 MG CAP PO SCH ×3 (08:32→21:00)
[2022-08-30] MEDS: MEMANTINE HCL 10 MG TAB PO SCH ×2 (08:33→21:03)
[2022-08-30] MEDS: PANTOprazole 40 MG TAB PO SCH (08:33)
[2022-08-30] MEDS: LOSARTAN POTASSIUM 50 MG TAB PO SCH (08:33)
[2022-08-30] MEDS: HEPARIN SOD 5,000 UNIT/0.5 ML VIAL SQ SCH ×2 (08:33→21:01)
[2022-08-30] MEDS: INSULIN ASPART PER UNIT SC SCH ×4 (08:36→21:02)
[2022-08-30] MEDS: LIDOCAINE 5% 1 PATCH TD SCH (21:02)
[2022-08-31] MEDS: guaiFENesin 200 MG TAB PO SCH ×2 (02:13→08:06)
--- NOTE | 2022-08-31 03:02 | Hospitalist Progress Note ---
Date of Service August 30, 2022 Assessment & Plan (1) Falls: Plan: Weakness 82 y/o female with a history of dementia, prior CVA with residual hemiparesis, insulin-requiring DM2 who presented to the ED with worsening falls and progression of underling dementia. Suspect acute worsening of chronic issues with ambulatory dysfunction related to acute infection with influenza A. However, family notes increasing difficulty keeping patient safe at home and would like to consider potential longer term placement. CT head showed no hemorrhage, mass effect, or evidence of acute territorial ischemia CT chest showed no acute abnormalities, in particular no evidence of acute fracture or pneumonia/aspiration. CT cervical showed no evidence of fracture or subluxation involving the cervical spine. CT abd/pelvis showed no acute abnormality and in particular no evidence of acute fracture in this patient with right pelvic and hip pain. Continue PT/OT Fall precaution waiting for placement to rehab (2) Influenza A: Plan: Pt is outside the window for Tamiflu. Continue supportive care. Continue Prednisone course--will wean off, guaifenesin and hypertonic saline neb (3) UTI (urinary tract infection): Plan: urine cx grew gram negative bacilli Urine culture grew E. coli Completed the course of the abx (4) DM type 2 (diabetes mellitus, type 2): Plan: Most recent HbA1c on 07/12/22 was 6.4. 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 Continue monitor BS (5) HTN (hypertension): Plan: BP fluctuated Continue home BP meds (6) Dementia: Plan: Continue memantine and Donepezil, Carbidopa-levodopa Stable (7) Dyslipidemia: Plan: Continue statin (8) GERD (gastroesophageal reflux disease): Plan: Continue PPI Hx CVA Continue statin and plavix stable Plan Code Status: Full Code DVT Prophylaxis: SubQ heparin Disposition Waiting for placement to rehab Admission and Anticipated Discharge Date Admission Date: August 16, 2022 Subjective Patient was seen and evaluated for follow-up Lying in bed with no acute distress watching TV Waiting for placement to rehab Review of Systems Review of Systems: All systems reviewed & are unremarkable except as noted in Subjective Physical Exam Physical Exam: General- No acute distress Head- atraumatic Eyes- PERRL, EOMI, ENT- oropharynx clear Neck- supple, no JVD Lungs-no wheezing Heart- regular rhythm; no murmur Abdomen- normal bowel sounds, soft, nontender Extremities- no calf tenderness Neuro- alert, oriented x 3; PERRL, EOMI; no facial palsy; no dysarthria Skin- warm & dry Results & Data Results & Data ([facility]) Vital Signs (Past 12 Hours) Vital Signs Temp Pulse Resp BP BP Pulse Ox O2 Del Method 08/30/22 21:02 Room Air 08/30/22 19:58 36.5 C 75 18 138/75 97 Room Air 08/30/22 15:07 36.4 C L 88 16 134/70 99 Room Air
[2022-08-31] MEDS: POLYETHYLENE (MIRALAX) 17 GM PACK PO SCH (08:05)
[2022-08-31] MEDS: CARBIDOPA/LEVODOPA 25/100MG TAB PO SCH (08:06)
[2022-08-31] MEDS: DONEPEZIL HCL 10 MG TAB PO SCH (08:06)
[2022-08-31] MEDS: ATORVASTATIN 10 MG TAB PO SCH (08:06)
[2022-08-31] MEDS: ESCITALOPRAM OXALATE 20 MG TAB PO SCH (08:06)
[2022-08-31] MEDS: CLOPIDOGREL BISULFATE 75 MG TAB PO SCH (08:06)
[2022-08-31] MEDS: HEPARIN SOD 5,000 UNIT/0.5 ML VIAL SQ SCH (08:07)
[2022-08-31] MEDS: MEMANTINE HCL 10 MG TAB PO SCH (08:07)
[2022-08-31] MEDS: LOSARTAN POTASSIUM 50 MG TAB PO SCH (08:07)
[2022-08-31] MEDS: GABAPENTIN 300 MG CAP PO SCH (08:07)
[2022-08-31] MEDS: PANTOprazole 40 MG TAB PO SCH (08:07)
[2022-08-31] MEDS: INSULIN ASPART PER UNIT SC SCH ×2 (08:45→12:36)
[2022-08-31] MEDS ORDERED: guaiFENesin 200 MG TAB PO PRN (09:51)
--- NOTE | 2022-08-31 09:52 | Hospitalist Progress Note ---
Date of Service August 31, 2022 Assessment & Plan (1) Falls: Plan: Weakness 82 y/o female with a history of dementia, prior CVA with residual hemiparesis, insulin-requiring DM2 who presented to the ED with worsening falls and progression of underling dementia. Suspect acute worsening of chronic issues with ambulatory dysfunction related to acute infection with influenza A. However, family notes increasing difficulty keeping patient safe at home and would like to consider potential longer term placement. CT head showed no hemorrhage, mass effect, or evidence of acute territorial ischemia CT chest showed no acute abnormalities, in particular no evidence of acute fracture or pneumonia/aspiration. CT cervical showed no evidence of fracture or subluxation involving the cervical spine. CT abd/pelvis showed no acute abnormality and in particular no evidence of acute fracture in this patient with right pelvic and hip pain. Continue PT/OT Fall precaution waiting for placement to rehab (2) Influenza A: Plan: Pt is outside the window for Tamiflu. Continue supportive care. resolved (3) UTI (urinary tract infection): Plan: urine cx grew gram negative bacilli Urine culture grew E. coli Completed the course of the abx (4) DM type 2 (diabetes mellitus, type 2): Plan: Most recent HbA1c on 07/12/22 was 6.4. 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 Continue monitor BS on [facility] as outpt, will consider transitioning her back to [facility] to determine needs at d/c (5) HTN (hypertension): Plan: BP fluctuated Continue home BP meds (6) Dementia: Plan: Continue memantine and Donepezil, Carbidopa-levodopa Stable (7) Dyslipidemia: Plan: Continue statin (8) GERD (gastroesophageal reflux disease): Plan: Continue PPI Hx CVA Continue statin and plavix stable Plan Code Status: Full Code DVT Prophylaxis: SubQ heparin Disposition Waiting for placement to rehab A total of 35 minutes were spent with greater than 50% of that time face to face with the patient, personally reviewing all current laboratories, imaging studies, past medication reconciliation. Pt was seen and examined in collaboration with Dr. Mac, please see addendum. Admission and Anticipated Discharge Date Admission Date: August 16, 2022 Supervising Physician Co-Signing Physician Notes Pt was seen and examined. Agreed with Mojgan exam, assessment and plan. 82 y/o female with a PMH of insulin-requiring DM2, dementia, prior CVA with residual left hemiparesis, GERD w/ prior hx PUD, HTN, dyslipidemia, depression, CKD3, and prior nephrolithiasis presented to the ED today via EMS after multiple falls at home. Imaging showed no acute fracture. Urine grew Ecoli where she completed the course of the antibiotic. Continue PT/OT. Waiting for placement. Clinically stable. MD Bubba Subjective Patient was seen and examined in room 303-1. Follow up recurrent falls, influenza A now resolved, awaiting placement. She reports being tired, otherwise no complaints. Denies f/c/s, chest pain, sob, n/v/d, abd pain. She is tolerating her diet. +BM 08/30 per nursing notes. Review of Systems Review of Systems: All systems reviewed & are unremarkable except as noted in HPI & below Physical Exam Physical Exam: Gen: WD/WN, elderly, lying in bed, NAD, A&O x2 HEENT: Normocephalic, atraumatic, conjunctivae moist, sclerae anicteric, mucous membranes moist. Lung: Clear to Auscultation bilaterally, no wheezes/rales/rhonchi Heart: Regular rate, regular rhythm, no murmurs, rubs, or gallops Abdomen: Soft, NT, ND +BS x 4 Extremities: No edema Skin: Warm, no rash, negative turgor. Results & Data Results & Data ([facility]) Vital Signs (Past 12 Hours) Vital Signs Temp Pulse Resp BP Pulse Ox O2 Del Method 08/31/22 08:28 36.5 C 85 16 115/68 93 Room Air Medications Administered Current Inpatient Medications Acetaminophen (Acetaminophen 325 Mg Tab) 650 mg PO Q4H PRN PRN Reason: Pain or Fever Stop: 09/15/22 21:28 Last Admin: 08/28/22 08:22 Dose: 650 mg Albuterol (Albut/Ipratrop 3mg/0.5mg Neb 3 Ml Vial) 3 ml NEB QIDR PRN; Protocol PRN Reason: Shortness Of Breath Or Wheezing Stop: 09/16/22 06:59 Last Admin: 08/25/22 04:47 Dose: 3 ml Atorvastatin Calcium (Atorvastatin 10 Mg Tab) 10 mg PO DAILY TIMO Stop: 09/16/22 08:59 Last Admin: 08/31/22 08:06 Dose: 10 mg Carbidopa/Levodopa (Carbidopa/Levodopa 25/100mg Tab) 1 tab PO TID TIMO Stop: 09/15/22 21:28 Last Admin: 08/31/22 08:06 Dose: 1 tab Clopidogrel Bisulfate (Clopidogrel Bisulfate 75 Mg Tab) 75 mg PO DAILY TIMO Stop: 09/16/22 08:59 Last Admin: 08/31/22 08:06 Dose: 75 mg Dextrose (Dextrose 50% 50 Ml Syringe) 25 - 50 ml IV UD PRN; Protocol PRN Reason: Hypoglycemia Protocol Stop: 09/15/22 19:50 Donepezil HCl (Donepezil Hcl 10 Mg Tab) 10 mg PO DAILY TIMO Stop: 09/16/22 08:59 Last Admin: 08/31/22 08:06 Dose: 10 mg Escitalopram Oxalate (Escitalopram Oxalate 20 Mg Tab) 20 mg PO DAILY TIMO Stop: 09/16/22 08:59 Last Admin: 08/31/22 08:06 Dose: 20 mg Gabapentin (Gabapentin 300 Mg Cap) 300 mg PO TID TIMO Stop: 09/15/22 21:28 Last Admin: 08/31/22 08:07 Dose: 300 mg Glucagon (Glucagon For Inj 1 Mg Vial) 1 mg SQ UD PRN; Protocol PRN Reason: Hypoglycemia Protocol Stop: 09/15/22 19:50 Glucose (Glucose 40% Gel 15 Gm Tube) 15 - 30 gm PO UD PRN; Protocol PRN Reason: Hypoglycemia Protocol Stop: 09/15/22 19:50 Glucose (Glucose 10 Tab/Tube) 4 - 8 tab PO UD PRN; Protocol PRN Reason: Hypoglycemia Treatment Stop: 09/15/22 19:50 Guaifenesin (Guaifenesin 200 Mg Tab) 200 mg PO Q6H TIMO Stop: 09/17/22 13:29 Last Admin: 08/31/22 08:06 Dose: 200 mg Heparin Sodium (Porcine) (Heparin Sod 5,000 Unit/0.5 Ml Vial) 5,000 units SQ Q12 TIMO Stop: 09/15/22 21:28 Last Admin: 08/31/22 08:07 Dose: 5,000 units Insulin Aspart (Insulin Aspart Per Unit) 0 units SC ACHS TIMO Stop: 09/15/22 20:59 Last Admin: 08/31/22 08:45 Dose: 20 units Insulin Glargine (Lantus Per Unit Charge) 30 units SQ BID TIMO Stop: 09/15/22 20:59 Last Admin: 08/17/22 00:33 Dose: Not Given Lidocaine (Lidocaine 5% 1 Patch) 1 patch TD HS TIMO Stop: 09/15/22 21:28 Last Admin: 08/30/22 21:02 Dose: 1 patch Lorazepam (Lorazepam 0.5 Mg Tab) 0.5 mg PO Q8H PRN PRN Reason: Anxiety Stop: 09/15/22 21:28 Last Admin: 08/25/22 20:26 Dose: 0.5 mg Losartan Potassium (Losartan Potassium 50 Mg Tab) 50 mg PO DAILY TIMO Stop: 09/16/22 08:59 Last Admin: 08/31/22 08:07 Dose: 50 mg Memantine (Memantine Hcl 10 Mg Tab) 10 mg PO BID TIMO Stop: 09/15/22 21:28 Last Admin: 08/31/22 08:07 Dose: 10 mg Miscellaneous (Carbohydrates For Hypoglycemia ) 15 - 30 gm PO UD PRN PRN Reason: Hypoglycemia Protocol Stop: 09/15/22 19:50 Last Admin: 08/16/22 23:23 Dose: 15 gm Miscellaneous (Remove Lidoderm Patch) 1 each N/A DAILY@0900 TIMO Stop: 09/16/22 08:59 Last Admin: 08/31/22 08:07 Dose: 1 each Pantoprazole Sodium (Pantoprazole 40 Mg Tab) 40 mg PO DAILY TIMO Stop: 09/16/22 08:59 Last Admin: 08/31/22 08:07 Dose: 40 mg Polyethylene Glycol (Polyethylene (Miralax) 17 Gm Pack) 17 gm PO DAILY TIMO Stop: 09/22/22 10:14 Last Admin: 08/31/22 08:05 Dose: Not Given
--- NOTE | 2022-08-31 14:25 | Discharge Summary ---
Date of Service August 31, 2022 Admission HPI Per Admitting Provider This is an 82 y/o female with a PMH of insulin-requiring DM2, dementia, prior CVA with residual left hemiparesis, GERD w/ prior hx PUD, HTN, dyslipidemia, depression, CKD3, and prior nephrolithiasis presented to the ED today via EMS after multiple falls at home. History from the patient is quite limited due to underlying dementia so additional history obtained from the pt's daughter at bedside and from review of the pt's oupatient medical record for PMH and current medications. Pt reportedly developed cough and congestion several days ago with associated fatigue and weakness. Sleeping more than usual. No fevers, nausea, or vomiting although appetite has been poor. Pt with poor ambulation at baseline - uses a walker at home, may use a wheelchair when out of the house for an appointment. However, over the last 48 hours, family reports she has had at least 7 falls at home. All seem to be related to weakness or loss of balance - family denies syncopal episodes. Family has also noted worsening of dementia symptoms at home - more confused, has taken her insulin incorrectly (same dose twice within short period of time with resultant hypoglycemia). They are concerned for their ability to keep her safe at home and would like to consider longer term options due to increased falls and worsening dementia. Admission Exam Per Admitting Provider Physical Exam Constitutional: well developed, well nourished and cooperative; no acute distress Eyes: PERRL, conjunctivae normal, anicteric sclerae ENMT: external ear and nose normal, oropharynx normal Neck: trachea midline Respiratory: coarse BS with faint expiratory wheeze Cardiovascular: Rate/Rhythm: regular rate and regular rhythm Gastrointestinal (Abdomen): Inspection/Auscultation: normal bowel sounds; abdomen not distended Percussion/Palpation: + abdomen tender (mild diffuse) and abdomen soft Musculoskeletal: right hip contusion with tenderness Skin: no jaundice Neurologic: left rn progressive care unit, LE strength - 4/5, right rn progressive care unit, LE strength 5/5 Psychiatric: pleasantly confused Principal Diagnosis Generalized Weakness Influenza A - resolved Fall UTI - E. Coli - resolved T2DM Discharge Exam Gen: WD/WN, elderly, lying in bed, NAD, A&O x2 HEENT: Normocephalic, atraumatic, conjunctivae moist, sclerae anicteric, mucous membranes moist. Lung: Clear to Auscultation bilaterally, no wheezes/rales/rhonchi Heart: Regular rate, regular rhythm, no murmurs, rubs, or gallops Abdomen: Soft, NT, ND +BS x 4 Extremities: No edema Skin: Warm, no rash, negative turgor. Discharge Data Allergies Allergy/AdvReac Type Severity Reaction Status Date / Time metaxalone Allergy Unknown unknown Verified 08/16/22 17:43 Penicillins Allergy Unknown RASH/HIVES( Verified 08/16/22 17:43 ?) Quinolones Allergy Unknown UNKNOWN Verified 08/16/22 17:43 Sulfa (Sulfonamide Allergy Unknown UNKNOWN Verified 08/16/22 17:43 Antibiotics) Consultations 08/16/22 18:10 ED Decision to Admit Stat Ordered Studies Chest X-Ray 08/16/22 15:08 XR chest 1V portable HISTORY: 82 years-old Female weakness acute weakness COMPARISON: Chest radiograph 02/02/2018 TECHNIQUE: AP view of the chest FINDINGS: Cardiac silhouette is enlarged. No pneumothorax, pleural effusion, airspace consolidation or overt pulmonary edema. Mild right hemidiaphragmatic elevation. Mild chronic interstitial coarsening. Degenerative changes of the shoulders and spine. Bilateral shoulder rotator cuff calcific tendinosis. Surgical clips project over the epigastric distribution. IMPRESSION: No acute process. ACT 112: Negative or not required by law. The above report was generated using voice recognition software. It may contain grammatical, syntax or spelling errors. Electronically signed by: Josias Darling M.D. 08/16/2022 3:45 PM Abdomen/Pelvis CT 08/16/22 15:52 CT abd pelvis wo con CLINICAL HISTORY: fall, R hip/pelvic pain TECHNIQUE: Helical axial images of the abdomen and pelvis were obtained. Automated dose lowering techniques and/or adjustment according to patient size were utilized for this exam This exam was performed without intravenous contrast. COMPARISON: Comparison is made to CTA abdomen and pelvis 04/03/[address] abdomen pelvis 03/30/2016 FINDINGS: Lower chest: No acute abnormality. Liver: Unremarkable. No focal lesions are seen. Previously noted hepatic steatosis is less evident on today's exam. Calcified granulomata are seen in the liver compatible with old granulomatous disease. Gallbladder and biliary tree: Patient is status post cholecystectomy. Physiologic prominence of the biliary ducts is noted. Pancreas: Unremarkable, no focal lesions. Spleen: Unremarkable. Adrenals: Stable left adrenal adenoma. Kidneys and ureters: Postsurgical changes are seen in the right kidney compatible with vascular coiling. Bladder: Gas is noted in the bladder. Reproductive organs: Unremarkable. Bowel: Diverticulosis is seen without evidence of diverticulitis. Duodenal diverticulum is noted. Lymph nodes Retroperitoneal: Unremarkable. Pelvic: Unremarkable. Mesenteric: Unremarkable. Peritoneum: Normal. Vessels: Atherosclerotic calcifications are seen. Abdominal wall: Stable calcified density in the left gluteal soft tissues, likely dystrophic. Bones: Degenerative changes in the visualized spine. No acute fracture, in particular no fracture of the pelvis or right hip. A Schmorl's node has developed in L2 from the prior exam. IMPRESSION: 1. No acute abnormality and in particular no evidence of acute fracture in this patient with right pelvic and hip pain. 2. Diverticulosis without diverticulitis. 3. Status post cholecystectomy. 4. Vascular: Right kidney, unchanged. ACT 112: Negative or not required by law. Electronically signed by: Juan Mckinney M.D. 08/16/2022 5:[address] 08/16/22 15:52 CT SCAN OF THE CERVICAL SPINE CLINICAL HISTORY: Falls. COMPARISON STUDY: CT of the cervical spine dated 11/17/2016. TECHNIQUE: CT scan of the cervical spine is performed from the skull base to the upper thoracic spine. Images are reviewed in the axial, sagittal, and coronal planes. IV contrast was not administered for this examination. A dose lowering technique was utilized adhering to the principles of ALARA. CT DOSE: 3216.05 mGy.cm FINDINGS: Skeletal structures: The skeletal structures are osteopenic. There is no evidence of fracture or subluxation involving the cervical spine. Vertebral body height there is maintained. There is minimal anterolisthesis at C3-C4 and C7-T1. Alignment is otherwise preserved. There is straightening of the cervical lordosis with reversal centered at C5. Anterior osteophytes are seen throughout. The odontoid process and lateral masses are intact. The atlantoaxial articulation is preserved note is productive degenerative change. The spinous processes appear intact. There is moderate multilevel cervical spondylosis. Uncovertebral and facet arthropathy contribute to neural foraminal narrowing at several levels. Intervertebral discs: There is advanced disc space narrowing with endplate sclerosis is seen at C4-C5, C5-C6, and C6-C7. Central canal: Posterior disc osteophyte complexes at C4-C5, C5-C6, and C6-C7 likely contribute to acquired compromise of the central canal. Soft tissues: The prevertebral and paraspinous soft tissues are within normal limits. There is atherosclerotic calcification of the carotid bulbs. Calvarium: The visualized calvarium at the skull base appears intact. Brain parenchyma: Partially visualized brain parenchyma at the skull base is within normal limits. Sinuses and mastoids: Mucosal thickening is noted in the sphenoid sinuses. There is trace right mastoid effusion. The left mastoid air cells are well pneumatized. Lung apices: Clear as visualized. IMPRESSION: 1. There is no evidence of fracture or subluxation involving the cervical spine. 2. Osteopenia and spondylotic change as above. ACT 112: Negative or not required by law. Electronically signed by: Nilay Morales M.D. 08/16/2022 4:[address] 08/16/22 15:52 CT chest diagnostic wo con CLINICAL HISTORY: falls, cough TECHNIQUE: Multidetector row helical CT of the chest was performed. Coronal and sagittal reformations were obtained. Automated dose lowering techniques and/or adjustment according to patient size were utilized for this exam. Comparison: Comparison is made to chest radiograph 08/16/2022 FINDINGS: Lungs and pleura: Atelectasis versus scarring is seen in the dependent portions of the lungs. Bronchial wall thickening is seen with minimal emphysema. Exam is limited due to patient motion. Heart and pericardium: Cardiomegaly is seen with biatrial enlargement. Mitral annular calcification is seen. Vessels: Moderate atherosclerotic changes in the aorta and coronary arteries. Mediastinum and víctor: Subcentimeter lymph nodes are seen. Chest wall and lower neck: Subcutaneous soft tissue nodule in the right anterior chest wall measures 13 mm, possibly a sebaceous cyst. Abdomen: For findings below the diaphragm, please refer to CT of the abdomen dated the same. Bones: Unremarkable. IMPRESSION: 1. No acute abnormalities, in particular no evidence of acute fracture or pneumonia/aspiration. 2. Atelectasis, emphysema, and bronchial wall thickening are partially visualized. ACT 112: Negative or not required by law. Electronically signed by: Juan Mckinney M.D. 08/16/2022 4:[address] 08/16/22 15:52 CT SCAN OF THE BRAIN WITHOUT IV CONTRAST CLINICAL HISTORY: Fall. COMPARISON STUDY: CT of the brain dated 12/27/2016. TECHNIQUE: Unenhanced axial CT scan of the brain is performed from the vertex to the skull base. A dose lowering technique was utilized adhering to the principles of ALARA. FINDINGS: Brain parenchyma: There is age-related involutional change noting moderate confluent subcortical and periventricular microangiopathic disease. There is no hemorrhage, mass effect, or evidence of acute territorial ischemia by CT criteria. Gary-white matter differentiation is preserved. No extra-axial fluid collection is seen. Ventricles, sulci, cisterns: Prominent secondary to involutional change. Intracranial vasculature: There is atherosclerotic calcification of the cavernous carotid and vertebral arteries. Calvarium: The skeletal structures are osteopenic. No depressed calvarial fracture is identified. Sinuses and mastoids: Mild mucosal thickening is noted within the frontal, ethmoid, sphenoid, and maxillary sinuses. There is trace right mastoid effusion. The left mastoid air cells are well pneumatized. Orbits: The bony orbits are grossly intact. There are bilateral ocular lens implants. IMPRESSION: There is no hemorrhage, mass effect, or evidence of acute territorial ischemia by CT criteria. ACT 112: Negative or not required by law. Electronically signed by: Nilay Morales M.D. 08/16/2022 4:52 PM Diabetes Follow up A1C 6.4 on 07/12/2022 Hospital Course (1) Falls: This is an 82 y/o female with a history of dementia, prior CVA with residual hemiparesis, insulin-requiring DM2 who presented to the ED with worsening falls and progression of underling dementia. Suspect acute worsening of chronic issues with ambulatory dysfunction related to acute infection with influenza A. However, family notes increasing difficulty keeping patient safe at home and would like to consider potential longer term placement. Initial work up included CT head, chest, c spin and abdomen/pelvis w/o acute pathology in regards to fall. She did test positive for influenza A, but was out of the window for Jammie flu. She was treated with supportive care including anti tussives, expectorants, hypertonic saline nebs. Her urine culture on admission also grew pansensitive gram negative bacilli, for which she completed a full course of antibiotic. Her chronic conditions of T2DM, hypertension and dementia were managed while inpatient. Her NPH was placed on hold and she was placed on Dragan tus/NovoLog regimen. Due to lower blood sugar Lantus was discontinued and used NovoLog with meals. At discharge she will resume her NPH with sliding scale. Her blood pressure was labile throughout admission but she remains on losartan 50 mg daily. She also has underlying dementia on Aricept and Namenda. This remains at baseline. On day of discharge she was hemodynamically stable and in good spirits. From an influenza standpoint her symptoms resolved except for mild cough. She has been using guaifenesin. (2) Influenza A: (3) UTI (urinary tract infection): (4) DM type 2 (diabetes mellitus, type 2): (5) HTN (hypertension): (6) Dementia: (7) Dyslipidemia: (8) GERD (gastroesophageal reflux disease): Total Time Total Time Spent Total Time Spent (In Minutes): 75 minutes Discharge Plan Discharge Items Patient Disposition: Transfer Shelter Fac Reason For Visit: FLU A, RECURRENT FALLS Discharge Diagnosis: Generalized Weakness Influenza A - resolved Fall UTI - E. Coli - resolved T2DM Condition on Discharge: Fair Activity: Resume your previous activity Weightbearing: Full weightbearing Non-emergency contact: Primary Care Provider Call non-emergency contact if: you have any medication questions, your symptoms worsen, your pain is not controlled, you have a fever and your temperature is above 101 Follow-up/Referrals: Trey Anderson MD [Primary Care Provider] - Diet: Carb Consistent or DM2 Addtl Attending Provider Instructions: MEDICATION CHANGES: Continue all home medications as prescribed. Recommend sliding scale for Novolin to avoid hypoglycemia. Novolin is prescribed 60 units SQ BID *IF BSG > 180 give 60 units * IF BSG 120-180 give 30 units * IF BSG < 120 give 0 units PENDING TEST RESULTS: None RECOMMENDATIONS FOR FOLLOW-UP: Please follow up with PCP after discharge from sub acute rehab. Please follow up with provider at [facility]. Take all medications as prescribed. Recommend CBC, CMP, Mag in 3 days. OTHER INSTRUCTIONS: Seek medical attention if you have: * temperature above 101 * chest pain or trouble breathing * abdominal pain, nausea, vomiting * diarrhea, dark stools or bloody stools * any unanswered questions or concerns Call 911 if symptoms are severe. Please take good care of yourself. It has been a pleasure taking care of you. Please take care of yourself. If you have any questions regarding your recent hospitalization please contact [facility] and request Usama Multani @ [phone]. Mojgan Ramirez PA-C Pending Studies at Discharge: No Stand-Alone Forms: My [facility] Skilled Items Patient informed of condition?: Yes DNR: No Discharge Level of Care: Skilled Communicable Disease: No Discharge Prognosis: Stable Lines: None Urinary Catheter: No Medications and DC Order Prescriptions: New guaifenesin 200 mg Tablet 200 mg PO Q6H PRN (Reason: congestion) Qty: 30 0RF Continued losartan 50 mg Tablet 50 mg PO DAILY atorvastatin 10 mg Tablet 10 mg PO DAILY donepezil 10 mg Tablet 10 mg PO DAILY Rx Instructions: take with largest meal of day. clopidogrel [Plavix] 75 mg Tablet 75 mg PO DAILY lorazepam 0.5 mg Tablet 0.5 mg PO Q8 PRN (Reason: Anxiety) pantoprazole 40 mg Tablet,Delayed Release (Dr/Ec) 40 mg PO DAILY gabapentin 300 mg Capsule 300 mg PO TID carbidopa-levodopa 25-100 mg Tablet 1 tab PO TID escitalopram oxalate 20 mg Tablet 20 mg PO DAILY memantine 10 mg Tablet 10 mg PO BID Novolin 70-30 FlexPen U-100 100 unit/mL (70-30) Insulin Pen 60 unit SUBCUT BID Discharge Orders: Discharge Order (Routine); Ordered 08/31/22 Ordered By: Mojgan Don/Other Patient Handouts: ED Influenza (Adult) Admission Data Admit Date/Time: 08/16/22 18:10 Attending Provider: Kelley Mac Admit Provider: Kelley Mac Primary Care Provider: Trey Anderson Other Providers: Nicci,Mary ; Kelley Mac ; Adilene Troncoso ; Mojgan Ramirez Other Interventions: Discharge Summary Assessment (RN) Last Done: 08/31/22 15:54
== END 2022-08-31 15:52 | DRG 194 ==
LOC: ED 14:28 → SUATTDRO 18:10 → 2W 18:10 → 3E 08-22 17:37
DX: N39.0 Urinary tract infection, site not specified; Z86.73 Personal history of transient ischemic attack (TIA), and cerebral infarction without residual deficits; Z88.8 Allergy status to other drugs, medicaments and biological substances; F03.90 Unspecified dementia, unspecified severity, without behavioral disturbance, psychotic disturbance, mood disturbance, and anxiety; Z79.899 Other long term (current) drug therapy; Z88.2 Allergy status to sulfonamides; J09.X2 Influenza due to identified novel influenza A virus with other respiratory manifestations; B96.20 Unspecified Escherichia coli [E. coli] as the cause of diseases classified elsewhere; Z88.0 Allergy status to penicillin; K21.9 Gastro-esophageal reflux disease without esophagitis; G81.90 Hemiplegia, unspecified affecting unspecified side; E11.22 Type 2 diabetes mellitus with diabetic chronic kidney disease; E78.5 Hyperlipidemia, unspecified; Z79.4 Long term (current) use of insulin; I10 Essential (primary) hypertension; Z87.891 Personal history of nicotine dependence